=== PATIENT | female | born 1945 | race American Indian/Alaskan Native ===

== ENCOUNTER 2019-08-09 16:02 | Inpatient (IN) | payer MEDICARE ==
[2019-08-09] MEDS ORDERED: D50W (25GM) Vial IV ONE (16:05)
--- NOTE | 2019-08-09 16:11 | Emergency Department Report ---
ED Neuro Deficit HPI - General Chief Complaint: Neuro Symptoms/Deficit Stated Complaint: NEURO ISSUE Time Seen by Provider: 08/09/19 16:04 Source: EMS Mode of arrival: Stretcher Limitations: Other - History of Present Illness Initial Comments: Patient is 74 years old female with history of hypertension and diabetes. Patient brought to the emergency room via EMS for possible stroke. Family stated that patient was cooking in the kitchen and all of a sudden started to became weak on the left side. Family stated that this is happened approximately at 3:30 PM. EMS arrived patient blood glucose was 52 she was given oral glucose with a blood sugar going up to 72. Upon arrival to the ER I examined the patient on EMS stretcher. Patient is alert, oriented 3. Patient has a left facial droop, left upper and lower extremity weakness. Patient given D50 and sent to CT scan for a CT brain emergently. Telemetry neurology consulted and examined the patient. -: This Time: 15:30 Location: left face, left arm, left leg Presenting Symptoms: Present: Weak/Paralyzed One Side, Facial Droop/Numbness, Unable to Speak Clearly Place: home Context: sudden onset - Related Data Allergies/Adverse Reactions: Allergies Allergy/AdvReac Type Severity Reaction Status Date / Time No Known Allergies Allergy Unverified 08/09/19 16:08 ED Review of Systems ROS: Stated complaint: NEURO ISSUE Other details as noted in HPI Comment: All other systems reviewed and negative Constitutional: denies: chills, fever Respiratory: denies: shortness of breath Cardiovascular: denies: chest pain Gastrointestinal: denies: abdominal pain, nausea Neurological: weakness. denies: headache ED Neuro Physical Exam - General Limitations: Other General appearance: alert, in no apparent distress Suspected Stroke: Yes - Head Head exam: Present: atraumatic, normocephalic, normal inspection - Eye Eye exam: Present: normal appearance, PERRL - ENT ENT exam: Present: normal exam, normal orophraynx, mucous membranes moist - Neck Neck exam: Present: normal inspection, full ROM. Absent: tenderness, meningismus, lymphadenopathy, thyromegaly - Respiratory Respiratory exam: Present: normal lung sounds bilaterally - Cardiovascular Cardiovascular Exam: Present: regular rate, normal rhythm, normal heart sounds - GI/Abdominal GI/Abdominal exam: Present: soft, normal bowel sounds. Absent: distended, tenderness, guarding, rebound, rigid, organomegaly, mass, bruit, pulsatile mass, hernia - Extremities Exam Extremities exam: Present: normal inspection, full ROM, normal capillary refill. Absent: tenderness, pedal edema, calf tenderness - Back Exam Back exam: Present: normal inspection, full ROM. Absent: CVA tenderness (R), CVA tenderness (L), muscle spasm, paraspinal tenderness, vertebral tenderness - Neurological Exam Neurological exam: Present: alert, oriented X3 - NIHSS Assessment Interval: Baseline 1a. Level of Consciousness: alert/keenly responsive 1b. LOC Questions: answers 1 question correctly 1c. LOC Commands: performs tasks correctly 2. Best Gaze: normal 3. Visual: no visual loss 4. Facial Palsy: minor paralysis 5b. Motor Arm Right: no drift 5a. Motor Arm Left: drift 6a. Motor Leg Left: some gravity effort 6b. Motor Leg Right: no drift 7. Limb Ataxia: absent 8. Sensory: normal 9. Best Language: no aphasia 10. Dysarthria: normal 11. Extinction/Inattention: no abnormality Total Score: 5 Stroke Severity: Moderate Stroke - Psychiatric Psychiatric exam: Present: normal mood - Skin Skin exam: Present: warm, intact, normal color ED Course Vital Signs 08/09/19 08/09/19 08/09/19 16:55 16:58 17:10 Temperature Pulse Rate 74 78 78 Respiratory 13 14 Rate Blood Pressure 149/66 154/57 Blood Pressure 149/66 154/57 [Left] O2 Sat by Pulse 100 100 Oximetry 08/09/19 08/09/19 08/09/19 17:25 17:40 17:55 Temperature Pulse Rate 74 75 74 Respiratory 13 14 15 Rate Blood Pressure Blood Pressure 155/57 140/54 140/54 [Left] O2 Sat by Pulse 96 96 96 Oximetry 08/09/19 08/09/19 08/09/19 18:03 18:10 18:30 Temperature 98.3 F Pulse Rate 75 73 Respiratory 15 20 14 Rate Blood Pressure Blood Pressure 139/57 121/64 [Left] O2 Sat by Pulse 100 98 96 Oximetry 08/09/19 19:00 Temperature Pulse Rate 73 Respiratory 16 Rate Blood Pressure Blood Pressure 126/53 [Left] O2 Sat by Pulse 96 Oximetry - Lab Data Result diagrams: 08/09/19 16:20 08/09/19 16:20 Lab Results 08/09/19 08/09/19 08/09/19 Range/Units 16:20 16:20 16:20 WBC 10.1 (4.5-11.0) K/mm3 RBC 4.99 (3.65-5.03) M/mm3 Hgb 13.8 (10.1-14.3) gm/dl Hct 43.2 H (30.3-42.9) % MCV 87 (79-97) fl MCH 28 (28-32) pg MCHC 32 (30-34) % RDW 17.8 H (13.2-15.2) % Plt Count 248 (140-440) K/mm3 PT 12.8 (12.2-14.9) Sec. INR 0.99 (0.87-1.13) APTT 28.5 (24.2-36.6) Sec. Thrombin Time 15.7 (15.1-19.6) Sec. Sodium (137-145) mmol/L Potassium (3.6-5.0) mmol/L Chloride (98-107) mmol/L Carbon Dioxide (22-30) mmol/L Anion Gap mmol/L BUN (7-17) mg/dL Creatinine (0.7-1.2) mg/dL Estimated GFR ml/min BUN/Creatinine Ratio % Glucose (65-100) mg/dL POC Glucose (70-105) Calcium (8.4-10.2) mg/dL Total Bilirubin (0.1-1.2) mg/dL Direct Bilirubin (0-0.2) mg/dL Indirect Bilirubin mg/dL AST (5-40) units/L ALT (7-56) units/L Alkaline Phosphatase (35-129) units/L Total Creatine Kinase 33 (30-135) units/L CK-MB (CK-2) 1.9 (0.0-4.0) ng/mL CK-MB (CK-2) Rel Index 5.7 H (0-4) Troponin T < 0.010 (0.00-0.029) ng/mL Total Protein (6.3-8.2) g/dL Albumin (3.9-5) g/dL Albumin/Globulin Ratio % 08/09/19 08/09/19 Range/Units 16:20 16:46 WBC (4.5-11.0) K/mm3 RBC (3.65-5.03) M/mm3 Hgb (10.1-14.3) gm/dl Hct (30.3-42.9) % MCV (79-97) fl MCH (28-32) pg MCHC (30-34) % RDW (13.2-15.2) % Plt Count (140-440) K/mm3 PT (12.2-14.9) Sec. INR (0.87-1.13) APTT (24.2-36.6) Sec. Thrombin Time (15.1-19.6) Sec. Sodium 140 (137-145) mmol/L Potassium 5.8 H (3.6-5.0) mmol/L Chloride 102.4 (98-107) mmol/L Carbon Dioxide 21 L (22-30) mmol/L Anion Gap 22 mmol/L BUN 17 (7-17) mg/dL Creatinine 1.1 (0.7-1.2) mg/dL Estimated GFR 59 ml/min BUN/Creatinine Ratio 15 % Glucose 186 H (65-100) mg/dL POC Glucose 139 H (70-105) Calcium 8.7 (8.4-10.2) mg/dL Total Bilirubin 0.30 (0.1-1.2) mg/dL Direct Bilirubin < 0.2 (0-0.2) mg/dL Indirect Bilirubin 0.1 mg/dL AST 16 (5-40) units/L ALT 12 (7-56) units/L Alkaline Phosphatase 69 (35-129) units/L Total Creatine Kinase (30-135) units/L CK-MB (CK-2) (0.0-4.0) ng/mL CK-MB (CK-2) Rel Index (0-4) Troponin T (0.00-0.029) ng/mL Total Protein 6.5 (6.3-8.2) g/dL Albumin 3.9 (3.9-5) g/dL Albumin/Globulin Ratio 1.5 % - EKG Data -: EKG Interpreted by Me Rate: normal Interpretation: no acute changes - Radiology Data Radiology results: report reviewed - Medical Decision Making Patient is 74 years old female with history of hypertension and diabetes. Patient brought to the emergency room via EMS for possible stroke. Family stated that patient was cooking in the kitchen and all of a sudden started to became weak on the left side. Family stated that this is happened approximately at 3:30 PM. EMS arrived patient blood glucose was 52 she was given oral glucose with a blood sugar going up to 72. Upon arrival to the ER I examined the patient on EMS stretcher. Patient is alert, oriented 3. Patient has a left facial droop, left upper and lower extremity weakness. Patient given D50 and sent to CT scan for a CT brain emergently. Telemetry neurology consulted and examined the patient. Patient's CT brain is negative for acute finding. I discussed the patient is . He stated that patient is a TPA candidate and he went ahead and order a TPA for the patient and advised to order a CT angiogram of the brain and neck. Patient finished TPA with no acute complication. Patient symptoms is significantly improved. Patient now has no left upper and lower extremity drift. CTA neck and brain is negative for acute finding. I discussed the patient with Dr. Driscoll, he agreed to admit the patient to medical service for further management. Critical Care Time: Yes Critical care time in (mins) excluding proc time.: 45 Critical care attestation.: If time is entered above; I have spent that time in minutes in the direct care of this critically ill patient, excluding procedure time. ED Disposition Clinical Impression: CVA (cerebral vascular accident) Disposition: DC-09 OP ADMIT IP TO THIS HOSP Is pt being admited?: Yes Condition: Stable Referrals: CYN WATSON MD [Primary Care Provider] - 3-5 Days
[2019-08-09 16:29] LABS: Hematocrit 43.2 % (30.3-42.9); Hemoglobin 13.8 gm/dl (10.1-14.3); Mean Corpuscular HGB Conc 32 % (30-34); Mean Corpuscular Volume 87 fl (79-97); Platelet Count 248 K/mm3 (140-440); Red Blood Count 4.99 M/mm3 (3.65-5.03); Red Cell Distribution Width 17.8 % (13.2-15.2)
--- NOTE | 2019-08-09 16:32 | Consultation ---
History of Present Illness Consult date: 08/09/19 History of present illness: [facility] Impression: Stroke Symptoms are consistent with LVO therefore CTA head and neck recommended. Differential Diagnosis: 1. Cardioembolic stroke 2. Small vessel disease/lacune 3. Thromboembolic, [id number] mechanism 4. Hypercoagulable state-related infarct 5. Transient ischemic attack 6. Thrombotic mechanism, large artery disease Comments: LKW: 14:50 Door time:16:02 [facility] contacted: 16:03 [facility] at bedside: 16:08 NIHSS assessment time: 16:17 Verbal tpa order:16:33 Needle time: 16:55 There was delay in TPA administration due to waiting on coags since family said that she is on warfarin. Verbal Consent to tPA: I have explained to the patient/family/guardian the nature of the patients condition, the use of tPA fibrinolytic agent, and the benefits to be reasonably expected compared with alternative approaches. I have discussed the likelihood of major risks or complications of this procedure including (if applicable) but not limited to loss of limb function, brain damage, paralysis, hemorrhage, infection, complications from transfusion of blood components, drug reactions, blood clots and loss of life. I have also indicated that with any procedure there is always the possibility of an unexpected complication. I have explained the risks which include: 1. , Stroke or permanent neurologic injury (paralysis, coma, etc) 2. Worsening of stroke symptoms from swelling or bleeding in the brain 3. Bleeding in other parts of the body 4. Need for blood transfusions to replace blood or clotting factors 5. Allergic reaction to medications 6. Other unexpected complications All questions were answered and the patient/family/guardian express understanding of the treatment plan and consent to the procedure. Our recommendations are outlined below. We will be seeing the patient back in follow up as noted. Recommendations: IV tPA dose = 90 mg Routine post tPA monitoring including neuro checks and blood pressure control during/after treatment Monitor blood pressure Check blood pressure and NIHSS every 15 min for 2 h, then every 30 min for 6 h, and finally every hour for 16 h Systolic greater than 180 OR diastolic greater than 105: Option 1: Labetalol 10 mg IV for 1 - 2 min May repeat or double labetalol every 10 min to maximum dose of 300 mg, or give initial labetalol dose, then start labetalol drip at 2 - 8 mg/min. Option 2: Nicardipine 5 mg/h IV infusion as initial dose and titrate to desired effect by increasing 2.5 mg/h every 5 min to maximum of 15 mg/h; If blood pressure is not controlled by labetolol or nicardipine, consider sodium nitroprusside. Admission to ICU CT brain 24 hours post tPA NPO until swallowing screen performed and passed No antiplatelet agents or anticoagulants (including heparin for DVT prophylaxis) in first 24 hours No Sears catheter, nasogastric tube, arterial catheter or central venous catheter for 24 hr, unless absolutely necessary Telemetry Inpatient Neurology Consultation Stroke evaluation as per inpatient neurology recommendations Discussed with ED MD CC: left sided weakness. History of Present Illness Patient is a 74 YO F with h/o HTN and DM presented with left sided weakness. She was LKW at 14:50 when she was with family and passed out. She was found to be hypoglycemic with BGL of 64 per family and was given Dextrose by EMS after which she recovered completely but then she passed out again and is now weak on the left side. she is also complaining of dizziness. Her BGL is 139 now. Per family she was prescribed coumadin couple of months ago but not sure if she is till on it. Risks/benefits/contraindications of TPA were discussed with the family who denied any contraindications and wanted to proceed with TPA. They understood the risk. We had to wait for coags to come back before TPA could be administered. Diagnostics CT head: No acute intracranial findings. Exam: NIH Stroke Scale/Score (NIHSS) RESULT SUMMARY: 6 points NIH Stroke Scale INPUTS: 1A: Level of consciousness > 0 = Alert; keenly responsive 1B: Ask month and age > 1 = 1 question right 1C: 'Blink eyes' & 'squeeze hands' > 0 = Performs both tasks 2: Horizontal extraocular movements > 0 = Normal 3: Visual crump > 0 = No visual loss 4: Facial palsy > 0 = Normal symmetry 5A: Left arm motor drift > 1 = Drift, but doesn't hit bed 5B: Right arm motor drift > 0 = No drift for 10 seconds 6A: Left leg motor drift > 2 = Some effort against gravity 6B: Right leg motor drift > 1 = Drift, but doesn't hit bed 7: Limb Ataxia > 0 = No ataxia 8: Sensation > 0 = Normal; no sensory loss 9: Language/aphasia > 1 = Mild-moderate aphasia: some obvious changes, without significant limitation 10: Dysarthria > 0 = Normal 11: Extinction/inattention > 0 = No abnormality Medical Decision Making: - Extensive number of diagnosis or management options are considered above. - Extensive amount of complex data reviewed. - High risk of complication and/or morbidity or mortality are associated with differential diagnostic considerations above. - There may be Uncertain outcome and increased probability of prolonged functional impairment or high probability of severe prolonged functional impairment associated with some of these differential diagnosis. Medical Data Reviewed: 1.Data reviewed include clinical labs, radiology, Medical Tests; 2.Tests results discussed w/performing or interpreting physician; 3.Obtaining/reviewing old medical records; 4.Obtaining case history from another source; 5.Independent review of image, tracing or specimen. Patient was informed the neurology consult would happen via telehealth consult by way of interactive audio and video telecommunications and consented to receiving care in this manner. Medications and Allergies Allergies Allergy/AdvReac Type Severity Reaction Status Date / Time No Known Allergies Allergy Unverified 08/09/19 16:08 - Level of Consciousness 1a. Level of Consciousness: alert/keenly responsive - LOC Questions 1b. LOC Questions: answers 1 question correctly - LOC Command 1c. LOC Commands: performs tasks correctly - Best Gaze 2. Best Gaze: normal - Visual 3. Visual: no visual loss - Facial Palsy 4. Facial Palsy: normal symmetrical movement - Motor Arm 5a. Motor Arm Left: drift 5b. Motor Arm Right: no drift - Motor Leg 6a. Motor Leg Left: some gravity effort 6b. Motor Leg Right: drift - Limb Ataxia 7. Limb Ataxia: absent - Sensory 8. Sensory: normal - Best Language 9. Best Language: mild/moderate aphasia - Dysarthria 10. Dysarthria: normal - Extinction and Inattention 11. Extinction/Inattention: no abnormality - Scoring Total Score: 6 Stroke Severity: Moderate Stroke Results - Laboratory Findings CBC and BMP: 08/09/19 16:20 08/09/19 16:20
--- NOTE | 2019-08-09 16:33 | Cat Scan Report ---
CT HEAD WITHOUT CONTRAST INDICATION / CLINICAL INFORMATION: Stroke symptoms. Code stroke TECHNIQUE: Axial imaging performed from the skull apex through the skull base without the use of cont rast. Sagittal and coronal reformatted images. All CT scans at this location are performed using CT dose reduction for ALARA by means of automated exposure control. COMPARISON: None available. FINDINGS: CEREBRAL PARENCHYMA: No significant abnormality. No acute territorial infarct. HEMORRHAGE: None. EXTRA-AXIAL SPACES: Normal in size and morphology for the patient's age. VENTRICULAR SYSTEM: Normal in size and morphology for the patient's age. MIDLINE SHIFT OR HERNIATION: None. CEREBELLUM / BRAINSTEM: No significant abnormality. CALVARIUM: No significant abnormality. ORBITS: Normal as visualized. PARANASAL SINUSES / MASTOID AIR CELLS: Normal as visualized. SOFT TISSUES of HEAD: No significant abnormality. ADDITIONAL FINDINGS: None. IMPRESSION: No acute intracranial abnormality. These findings were discussed with Dr. Benton in the emergency department at 1628 hours [facility] time. Signer Name: Mani Denson Jr, MD Signed: 08/09/2019 4:29 PM Workstation Name: [id number]
[2019-08-09 16:40] LABS: INR 0.99 (0.87-1.13); Partial Thromboplastin Time 28.5 Sec. (24.2-36.6)
[2019-08-09 16:41] LABS: Thrombin Time 15.7 Sec. (15.1-19.6)
[2019-08-09] MEDS ORDERED: ACTIVASE ONE (16:42)
[2019-08-09 16:53] LABS: Creatine Kinase MB 1.9 ng/mL (0.0-4.0)
[2019-08-09 16:54] LABS: Alanine Aminotransferase 12 units/L (7-56); Albumin 3.9 g/dL (3.9-5); BUN/Creatinine Ratio 15; Blood Urea Nitrogen 17 mg/dL (7-17); Calcium 8.7 mg/dL (8.4-10.2); Hemolysis Index 74
[2019-08-09 17:11] LABS: Bilirubin,Direct < 0.2 mg/dL (0-0.2)
[2019-08-09] MEDS ORDERED: NACL 0.9% 100 ML ONE (17:19)
[2019-08-09] MEDS ORDERED: ACTIVASE IV ONE ×2 (18:01)
[2019-08-09] MEDS ORDERED: NACL 0.9% IV ONE (18:01)
[2019-08-09] MEDS ORDERED: NACL 0.9% 250ML 100 ML IV ONE (18:14)
--- NOTE | 2019-08-09 18:44 | Cat Scan Report ---
CTA neck with and without contrast CLINICAL HISTORY: Cerebrovascular accident. Technique: Multiple contiguous postcontrast axial CT images of the neck were obtained at 0.63 mm inte rvals. 3 plane MIP reconstructions were produced. Precontrast localizing images were also performed. All CT scans at this location are performed using the CT dose reduction for ALARA by means of automat ed exposure control. FINDINGS: No previous exams available for comparison. There is no significant stenosis involving the carotid arteries by NASCET criteria. The motion and beam hardening from the dense contrast within the venous structures obscures evaluation of the proximal vertebral arteries at. However, there is no cl ear CTA evidence of significant focal narrowing involving the vertebral arteries. The arch of vessels are grossly unremarkable. The CTA head will be dictated separately. IMPRESSION: There is no CTA evidence of significant stenosis involving the cervical carotid or vertebral arteries by NASCET criteria. Signer Name: Long Guerrero MD Signed: 08/09/2019 6:40 PM Workstation Name: [id number]
--- NOTE | 2019-08-09 18:59 | Cat Scan Report ---
CTA head with and without IV contrast. CLINICAL HISTORY: Cerebrovascular accident Technique: Multiple contiguous postcontrast CT images of the head were obtained at 0.63 mm intervals. 3 plane MIP reconstructions were obtained. Precontrast localizing images were also performed. CT scan s at this location are performed using the CT dose reduction for ALARentJiffy by means of automated exposure control. FINDINGS: There is atherosclerotic calcification involving the distal internal carotid arteries witho ut significant stenosis by NASCET criteria. 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 However, there is no significant focal narrowing. The vi sualized cerebral branches appear to demonstrate appropriate caliber also without significant focal s tenosis. There is no definitive CTA evidence of intracranial aneurysm. The dural venous sinuses opacify with c ontrast. 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 There is atherosclerotic calcification involving the distal internal carotid arteries without signifi cant stenosis by NASCET criteria. Signer Name: Long Guerrero MD Signed: 08/09/2019 6:55 PM Workstation Name: [id number]
[2019-08-09] MEDS ORDERED: MILK OF MAGNESIA PO PRN (19:57)
[2019-08-09] MEDS ORDERED: TYLENOL PO PRN (19:57)
[2019-08-09] MEDS ORDERED: DULCOLAX PR PRN (19:57)
[2019-08-09] MEDS ORDERED: DILAUDID IV PRN (19:57)
[2019-08-09] MEDS ORDERED: NORMODYNE IV PRN (19:57)
[2019-08-09] MEDS ORDERED: REGLAN PO PRN (19:57)
[2019-08-09] MEDS ORDERED: ZOFRAN IV PRN (19:57)
[2019-08-09] MEDS ORDERED: PHENERGAN PR PRN (19:57)
[2019-08-09] MEDS ORDERED: KIONEX PO ONE (20:22)
[2019-08-09] MEDS ORDERED: CALCIUM GLUCONATE 1,000 MG in NACL 0.9% 100 ML IV ONE (20:22)
--- NOTE | 2019-08-09 20:32 | History and Physical Report ---
History of Present Illness Date of examination: 08/09/19 Date of admission: 08/09/2019 Chief complaint: CVA History of present illness: 74-year-old female with history of hypertension and diabetes who presents to [facility] ED via EMS with complaints of left sided weakness and left facial droop. Family is present at bedside and has assisted with providing history. According to patient's family patient was in the kitchen earlier today cooking, when suddenly became weak on the left side. She was noted to have left sided facial droop as well. upon EMS arrival to pt'e home she was found to be hypoglycemic with BG of 52. She was given oral glucose (by EMS) and was responsive with BG of 72. Upon arrival to out facility she was noted to have left facial droop, left upper and lower extremity weakness. CT Head was negative. Teleneurology () was consulted and evaluated pt. Per Dr. Irizarry's recommendations pt received tPA in ED. Denies: n/v/d, fever, headache, non compliance with meds Past History Past Medical History: diabetes, hypertension Past Surgical History: No surgical history Social history: lives with family Family history: no significant family history Medications and Allergies Allergies Allergy/AdvReac Type Severity Reaction Status Date / Time No Known Allergies Allergy Unverified 08/09/19 16:08 Active Meds: Active Medications Acetaminophen (Tylenol) 650 mg PO Q4H PRN PRN Reason: Pain, Mild (1-3) Acetaminophen/Hydrocodone Bitart ([place] 5/325) 2 each PO Q6H PRN PRN Reason: Pain, Moderate (4-6) Aspirin (Aspirin) 325 mg PO QDAY [facility] Atorvastatin Calcium (Lipitor) 40 mg PO QHS [facility] Bisacodyl (Dulcolax) 10 mg [place] QDAY PRN PRN Reason: Constipation Docusate Sodium (Colace) 100 mg PO BID [facility] Hydromorphone HCl (Dilaudid) 0.5 mg IV Q3H PRN PRN Reason: Pain , Severe (7-10) Calcium Gluconate 1,000 mg/ (Sodium Chloride) 110 mls @ 660 mls/hr IV ONCE ONE Stop: 08/09/19 20:31 Labetalol HCl (Normodyne) 10 mg IV Q5MIN PRN PRN Reason: maintain SBP 180or<,DBP 105or< Magnesium Hydroxide (Milk Of Magnesia) 30 ml PO Q4H PRN PRN Reason: Constipation Metoclopramide HCl (Reglan) 10 mg PO Q6H PRN PRN Reason: Nausea And Vomiting Ondansetron HCl (Zofran) 4 mg IV Q8H PRN PRN Reason: Nausea And Vomiting Promethazine HCl (Phenergan) 25 mg [place] Q6H PRN PRN Reason: Nausea And Vomiting Sodium Chloride (Sodium Chloride Flush Syringe 10 Ml) 10 ml INJ PRN PRN PRN Reason: LINE FLUSH Sodium Polystyrene Sulfonate (Kionex) 30 gm PO ONCE ONE Stop: 08/09/19 20:23 Review of Systems All systems: negative Neurological: lack of coordination (left sided weakness), other (left facial droop) Exam - Physical Exam Narrative exam: Physical exam General appearance: Present: No apparent distress, alert and oriented 3, well- developed, obese, older adult female - EENT Eyes: Present: PERRL, EOM intact ENT: hearing intact, normal dentition - Neck Neck: Present: supple, normal ROM - Respiratory Respiratory effort: Non-labored Respiratory: CTA bilaterally - Cardiovascular Heart rate: 74(bpm) Rhythm: SR Heart Sounds: Present: S1 & S2. Absent: rub, click - Extremities Extremities: no ischemia, pulses intact, - Peripheral Assessment Peripheral Pulses: within normal limits - Abdominal General gastrointestinal: soft, non-tender, normal bowel sounds - Integumentary Integumentary: Present: warm, dry - Musculoskeletal Musculoskeletal: Mild left-sided residual weakness, able to move all extremities -Neurological Neurological: CN II-XII grossly intact - Psychiatric Psychiatric: cooperative - Constitutional Vitals: Temp Pulse Resp BP Pulse Ox 98.3 F 71 16 139/57 97 08/09/19 18:30 08/09/19 19:15 08/09/19 19:15 08/09/19 19:15 08/09/19 19:15 Results - Labs CBC & Chem 7: 08/09/19 16:20 08/09/19 16:20 Labs: Laboratory Last Values WBC 10.1 K/mm3 (4.5-11.0) 08/09/19 16:20 RBC 4.99 M/mm3 (3.65-5.03) 08/09/19 16:20 Hgb 13.8 gm/dl (10.1-14.3) 08/09/19 16:20 Hct 43.2 % (30.3-42.9) H 08/09/19 16:20 MCV 87 fl (79-97) 08/09/19 16:20 MCH 28 pg (28-32) 08/09/19 16:20 MCHC 32 % (30-34) 08/09/19 16:20 RDW 17.8 % (13.2-15.2) H 08/09/19 16:20 Plt Count 248 K/mm3 (140-440) 08/09/19 16:20 PT 12.8 Sec. (12.2-14.9) 08/09/19 16:20 INR 0.99 (0.87-1.13) 08/09/19 16:20 APTT 28.5 Sec. (24.2-36.6) 08/09/19 16:20 15.7 Sec. (15.1-19.6) 08/09/19 16:20 Sodium 140 mmol/L (137-145) 08/09/19 16:20 Potassium 5.8 mmol/L (3.6-5.0) H 08/09/19 16:20 Chloride 102.4 mmol/L (98-107) 08/09/19 16:20 Carbon Dioxide 21 mmol/L (22-30) L 08/09/19 16:20 22 mmol/L 08/09/19 16:20 BUN 17 mg/dL (7-17) 08/09/19 16:20 1.1 mg/dL (0.7-1.2) 08/09/19 16:20 Estimated GFR 59 ml/min 08/09/19 16:20 15 % 08/09/19 16:20 Glucose 186 mg/dL (65-100) H 08/09/19 16:20 POC Glucose 139 (70-105) H 08/09/19 16:46 Calcium 8.7 mg/dL (8.4-10.2) 08/09/19 16:20 0.30 mg/dL (0.1-1.2) 08/09/19 16:20 < 0.2 mg/dL (0-0.2) 08/09/19 16:20 0.1 mg/dL 08/09/19 16:20 AST 16 units/L (5-40) 08/09/19 16:20 ALT 12 units/L (7-56) 08/09/19 16:20 69 units/L (35-129) 08/09/19 16:20 33 units/L (30-135) 08/09/19 16:20 CK-MB (CK-2) 1.9 ng/mL (0.0-4.0) 08/09/19 16:20 CK-MB (CK-2) Rel Index 5.7 (0-4) H 08/09/19 16:20 < 0.010 ng/mL (0.00-0.029) 08/09/19 16:20 6.5 g/dL (6.3-8.2) 08/09/19 16:20 3.9 g/dL (3.9-5) 08/09/19 16:20 1.5 % 08/09/19 16:20 - Imaging and Cardiology Imaging and Cardiology: CT Head: FINDINGS: CEREBRAL PARENCHYMA: No significant abnormality. No acute territorial infarct. HEMORRHAGE: None. EXTRA-AXIAL SPACES: Normal in size and morphology for the patient's age. VENTRICULAR SYSTEM: Normal in size and morphology for the patient's age. MIDLINE SHIFT OR HERNIATION: None. CEREBELLUM / BRAINSTEM: No significant abnormality. CALVARIUM: No significant abnormality. ORBITS: Normal as visualized. PARANASAL SINUSES / MASTOID AIR CELLS: Normal as visualized. SOFT TISSUES of HEAD: No significant abnormality. ADDITIONAL FINDINGS: None. IMPRESSION: No acute intracranial abnormality. CT angio Neck: FINDINGS: No previous exams available for comparison. There is no significant s tenosis involving the carotid arteries by NASCET criteria. The motion and beam hardening from the dense contrast within the venous structures obscures evaluation of the proximal vertebral arteries at. However, there is no clear CTA evidence of significant focal narrowing involving the vertebral arteries. The arch of vessels are grossly unremarkable. The CTA head will be dictated separately. IMPRESSION: There is no CTA evidence of significant stenosis involving the cervical carotid or vertebral arteries by NASCET criteria. CT angio Head: FINDINGS: There is atherosclerotic calcification involving the distal internal carotid arteries without significant stenosis by NASCET criteria. 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 However, there is no significant focal narrowing.The visualized cerebral branches appear to demonstrate appropriate caliber also without significant focal stenosis. There is no definitive CTA evidence of intracranial aneurysm. The dural venous sinuses opacify with contrast. 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 There is atherosclerotic calcification involving the distal internal carotid arteries without significant stenosis by NASCET criteria. Assessment and Plan Assessment and plan: 74-year-old female with history of hypertension and diabetes who presents to [facility] ED via EMS with complaints of left sided weakness and left facial droop. CVA ?? Large vessel occlusion -Initiate stroke protocol -CT angiogram Head revealed There is developmental origin of the right [employer]IT [employer]ING MANAGER and hypoplasia of the vertebral basilar system.There is atherosclerotic calcification involving the distal internal carotid arteries without significant stenosis by NASCET criteria. -CT angiogram Neck did not show any evidence of significant stenosis involving the cervical carotid or vertebral arteries by NASCET criteria. -S/P tPA -Hold ASA and all anticoagulation therapy for the next 24hrs -Allow for permissive HTN [id number] or <, DBP 105 or < -IV labetalol when necessary -Neurochecks per stroke protocol -MRI brain and Echo pending -Start Statin -Lipid panel pending -Neurology consulted -PT/OT consult Hypertension -Continue to monitor BP -Resume home antihypertensive meds to optimize BP -Allow for permissive HTN [id number] or <, DBP 105 or < -IV labetalol when necessary DM -POC BG monitoring -SSI coverage prn -HgbA1C pending Hyperkalemia -5.8 on admission -Received Kayexalate and calcium gluconate -Continue to monitor electrolytes DVT PPX -SCD's Advance Directives: No VTE prophylaxis?: Mechanical Reason for no VTE Prophylaxis: Medical contraindication (patient received TPA today)
[2019-08-09] MEDS ORDERED: D50W (25GM) Syringe IV PRN (20:33)
[2019-08-09 20:38] LABS: Basophils % (Manual) 0 % (0.0-1.8); Total Cells Counted 100
[2019-08-09 20:39] LABS: Anisocytosis 1+
[2019-08-09 20:41] LABS: Platelet Estimate Consistent w Auto
[2019-08-09] MEDS ORDERED: NACL 0.9% 500 ML 500 ML ONE (22:06)
[2019-08-09] MEDS ORDERED: NACL 0.9% 500 ML 500 ML IV ONE (22:11)
[2019-08-09] MEDS: COLACE PO SCH (22:12)
--- NOTE | 2019-08-10 04:43 | Event Note ---
Date: 08/10/19 New onset of A.Fib noted on 12 Lead EKG. troponin neg x2; will continue to trend x1. Cardiology consulted.
[2019-08-10 05:06] LABS: Basophils # (Auto) 0.2 K/mm3 (0.0-0.1); Basophils % (Auto) 1.4 % (0.0-1.8); Eosinophils # (Auto) 0.3 K/mm3 (0.0-0.4); Eosinophils % (Auto) 2.3 % (0.0-4.3); Hematocrit 47.4 % (30.3-42.9); Hemoglobin 15.2 gm/dl (10.1-14.3); Lymphocytes # (Auto) 2.9 K/mm3 (1.2-5.4); Lymphocytes % (Auto) 24.2 % (13.4-35.0); Mean Corpuscular HGB Conc 32 % (30-34); Mean Corpuscular Volume 86 fl (79-97); Monocytes # (Auto) 0.6 K/mm3 (0.0-0.8); Monocytes % (Auto) 4.9 % (0.0-7.3); Platelet Count 240 K/mm3 (140-440); Red Blood Count 5.51 M/mm3 (3.65-5.03); Red Cell Distribution Width 18.3 % (13.2-15.2)
[2019-08-10 05:21] LABS: Chol/HDL Ratio 3.29 %
[2019-08-10 05:25] LABS: Alanine Aminotransferase 12 units/L (7-56); Albumin 3.6 g/dL (3.9-5); BUN/Creatinine Ratio 13; Blood Urea Nitrogen 13 mg/dL (7-17); Calcium 9.1 mg/dL (8.4-10.2); Hemolysis Index 11
[2019-08-10] MEDS: HumuLIN R SUB-Q SCH ×4 (05:56→17:20)
[2019-08-10] MEDS: COLACE PO SCH ×2 (09:40→21:47)
[2019-08-10] MEDS ORDERED: PNEUMOVAX 23 IM ONE (12:00)
--- NOTE | 2019-08-10 12:25 | Consultation ---
History of Present Illness Consult date: 08/10/19 Requesting physician: CASANDRA CANALES Consult reason: atrial fibrillation History of present illness: The patient is a74 YO female with h/o HTN and DM. She is previously unknown to our practice. She presented with c/o left sided weakness and left facial droop, last known well yesterday at 14:50. Upon EMS arrival to pt's home she was found to be hypoglycemic with BG of 52. She was given oral glucose (by EMS) and was responsive with BG of 72. Upon arrival to out facility she was noted to have left facial droop, left upper and lower extremity weakness. CT Head was negative. Teleneurology was consulted and evaluated pt and per their recommendation pt received tPA in ED at approx 1700 yesterday and has no residu al deficits today. Admission ECG showed SR and overnight pt developed AFib. On evaluation, pt remains in AFib with HR 100s - 120s. Pt does report intermittent palpitations over the past several months. Pt denies any known prior cardiac issues, including CAD, AMI, HF or arrhythmia. Per the chart, pt's family members reported that pt was recently prescribed Warfarin, although they did now know the indication or if the pt had actually been taking this medication. INR was normal on admission. Past History Past Medical History: diabetes, hypertension Past Surgical History: No surgical history Social history: lives with family Family history: no significant family history Medications and Allergies Allergies Allergy/AdvReac Type Severity Reaction Status Date / Time No Known Allergies Allergy Unverified 08/09/19 16:08 Home Medications Medication Instructions Recorded Confirmed Last Taken Type Aspirin BABY CHEW TAB 81 mg PO DAILY 08/09/19 08/09/19 Unknown History AtorvaSTATin 20 mg PO DAILY 08/09/19 08/09/19 Unknown History HCTZ 12.5 mg PO DAILY 08/09/19 08/09/19 Unknown History Jardiance 10 mg PO DAILY 08/09/19 08/09/19 Unknown History Levothyroxine 50 mcg PO DAILY 08/09/19 08/09/19 Unknown History Losartan 50 mg PO DAILY 08/09/19 08/09/19 Unknown History metFORMIN 1,000 mg PO BID 08/09/19 08/09/19 Unknown History Active Meds: Active Medications Acetaminophen (Tylenol) 650 mg PO Q4H PRN PRN Reason: Pain, Mild (1-3) Acetaminophen/Hydrocodone Bitart ([place] 5/325) 2 each PO Q6H PRN PRN Reason: Pain, Moderate (4-6) Aspirin (Aspirin) 325 mg PO QDAY [facility] Atorvastatin Calcium (Lipitor) 40 mg PO QHS [facility] Last Admin: 08/09/19 22:12 Dose: 40 mg Documented by: Bisacodyl (Dulcolax) 10 mg [place] QDAY PRN PRN Reason: Constipation Dextrose (D50w (25gm) Syringe) 50 ml IV PRN PRN PRN Reason: Hypoglycemia Docusate Sodium (Colace) 100 mg PO BID [facility] Last Admin: 08/10/19 09:40 Dose: 100 mg Documented by: Hydromorphone HCl (Dilaudid) 0.5 mg IV Q3H PRN PRN Reason: Pain , Severe (7-10) Insulin Human Regular (Humulin R) 0 units SUB-Q Q6HR [facility]; Protocol Last Admin: 08/10/19 05:56 Dose: Not Given Documented by: Labetalol HCl (Normodyne) 10 mg IV Q5MIN PRN PRN Reason: maintain SBP 180or<,DBP 105or< Magnesium Hydroxide (Milk Of Magnesia) 30 ml PO Q4H PRN PRN Reason: Constipation Metoclopramide HCl (Reglan) 10 mg PO Q6H PRN PRN Reason: Nausea And Vomiting Ondansetron HCl (Zofran) 4 mg IV Q8H PRN PRN Reason: Nausea And Vomiting Pneumococcal Polyvalent Vaccine (Pneumovax 23) 0.5 ml IM .ONCE ONE Stop: 08/11/19 12:01 Promethazine HCl (Phenergan) 25 mg [place] Q6H PRN PRN Reason: Nausea And Vomiting Sodium Chloride (Sodium Chloride Flush Syringe 10 Ml) 10 ml IV PRN PRN PRN Reason: LINE FLUSH Review of Systems Constitutional: weakness (left sided), no weight loss, no weight gain, no fever, no chills, no sweats Ears, nose, mouth and throat: no ear pain, no nose pain, no sinus pressure, no sinus pain Cardiovascular: palpitations, rapid/irregular heart beat, high blood pressure, no chest pain, no orthopnea, no edema, no syncope, no lightheadedness, no shortness of breath, no dyspnea on exertion Respiratory: no cough, no shortness of breath, no dyspnea on exertion, no congestion, no wheezing, no pain on inspiration Gastrointestinal: no abdominal pain, no nausea, no vomiting, no diarrhea, no constipation, no change in bowel habits Genitourinary Female: no pelvic pain, no flank pain, no dysuria, no urinary frequency, no urgency Musculoskeletal: no neck stiffness, no neck pain, no shooting arm pain, no arm numbness/tingling, no low back pain, no shooting leg pain Integumentary: no rash, no pruritis, no redness, no sores, no wounds Neurological: weakness (left sided), other (left-sided facial droop), no head injury, no paralysis, no parathesias, no tingling, no seizures, no syncope Psychiatric: no anxiety Endocrine: no cold intolerance, no heat intolerance Hematologic/Lymphatic: no easy bruising, no easy bleeding Allergic/Immunologic: no urticaria, no wheezing Physical Examination Vital Signs Pulse Ox 98 08/09/19 16:22 General appearance: no acute distress HEENT: Positive: PERRL, Normocephaly, Mucus Membranes Moist Neck: Positive: neck supple, trachea midline Cardiac: Positive: irregularly irregular, S1/S2 Lungs: Positive: Decreased Breath Sounds Neuro: Positive: Grossly Intact Abdomen: Negative: Tender Skin: Negative: Rash Musculoskeletal: No Pain Extremities: Absent: edema Results 08/10/19 04:36 08/10/19 04:36 Cardiac Enzymes 08/09/19 08/09/19 08/10/19 Range/Units 16:20 16:20 04:36 AST 16 13 (5-40) units/L CK-MB (CK-2) 1.9 (0.0-4.0) ng/mL Coagulation 08/09/19 Range/Units 16:20 PT 12.8 (12.2-14.9) Sec. INR 0.99 (0.87-1.13) APTT 28.5 (24.2-36.6) Sec. Lipids 08/10/19 Range/Units 04:36 Triglycerides 100 (2-149) mg/dL Cholesterol 102 (50-199) mg/dL HDL Cholesterol 31 L (40-59) mg/dL Cholesterol/HDL Ratio 3.29 % CBC 08/09/19 08/10/19 Range/Units 16:20 04:36 WBC 10.1 11.9 H (4.5-11.0) K/mm3 RBC 4.99 5.51 H (3.65-5.03) M/mm3 Hgb 13.8 15.2 H (10.1-14.3) gm/dl Hct 43.2 H 47.4 H (30.3-42.9) % Plt Count 248 240 (140-440) K/mm3 Lymph # 2.9 (1.2-5.4) K/mm3 [place] # 0.6 (0.0-0.8) K/mm3 Eos # 0.3 (0.0-0.4) K/mm3 Baso # 0.2 H (0.0-0.1) K/mm3 Comprehensive Metabolic Panel 08/09/19 08/10/19 Range/Units 16:20 04:36 Sodium 140 142 (137-145) mmol/L Potassium 5.8 H 4.5 D (3.6-5.0) mmol/L Chloride 102.4 103.7 (98-107) mmol/L Carbon Dioxide 21 L 27 (22-30) mmol/L BUN 17 13 (7-17) mg/dL Creatinine 1.1 1.0 (0.7-1.2) mg/dL Glucose 186 H 109 H (65-100) mg/dL Calcium 8.7 9.1 (8.4-10.2) mg/dL Direct Bilirubin < 0.2 (0-0.2) mg/dL Indirect Bilirubin 0.1 mg/dL AST 16 13 (5-40) units/L ALT 12 12 (7-56) units/L Alkaline Phosphatase 69 69 (35-129) units/L Total Protein 6.5 6.8 (6.3-8.2) g/dL Albumin 3.9 3.6 L (3.9-5) g/dL - Imaging and Cardiology Echo: pending EKG: report reviewed, image reviewed EKG interpretations - Telemetry EKG Rhythm: Atrial Fibrillation - EKG Supraventricular dysrhythmia: atrial fibrillation Assessment and Plan Pt presented with apparent acute CVA and ? new onset AFib. Pt received tPA in ED at approx 1700 yesterday. Per teleneurology recommendations, no antiplatelet agents or anticoagulants (including heparin for DVT prophylaxis) in first 24 hours. Inpatient neurology consultation is pending. Recommend initiation of heparin gtt today at 1700 in regards to atrial fibrillation if no contraindications. Optimize HR and will also attempt to chemically convert to NSR - initiate amio gtt. BPs appear borderline low. Can consider addition of BB or CCB if necessary and if BPs permit. Obtain echo and thyroid profile. Further recs to follow per hospital course. The patient has been seen in conjunction with Dr. Leoncio Rosario who agrees with the assessment and plan of care. - Patient Problems (1) Acute CVA (cerebrovascular accident) Current Visit: Yes Status: Acute (2) Atrial fibrillation with RVR Current Visit: Yes Status: Acute Plan to address problem: ? new onset (3) HTN (hypertension) Current Visit: Yes Status: Chronic (4) Diabetes Current Visit: Yes Status: Chronic
--- NOTE | 2019-08-10 12:33 | Consultation ---
History of Present Illness - Reason for Consult Consult date: 08/10/19 TPA for Acute CVA - History of Present Illness 74-year-old female with history of hypertension and diabetes who presents to [facility] ED via EMS with complaints of left sided weakness and left facial droop. Per the chart, patient was in the kitchen cooking earlier that day and developed an acute onset of left sided weaknes. In the ED she had left sided facial droop as well. She was also hypoglycemic in the 50's. She was given TP around 1700 on yesterday. She has no residual deficits this am. She did develop afib throughout the night. Past History Past Medical History: diabetes, hypertension Past Surgical History: No surgical history Social history: lives with family Family history: no significant family history Medications and Allergies Allergies Allergy/AdvReac Type Severity Reaction Status Date / Time No Known Allergies Allergy Unverified 08/09/19 16:08 Home Medications Medication Instructions Recorded Confirmed Last Taken Type Aspirin BABY CHEW TAB 81 mg PO DAILY 08/09/19 08/09/19 Unknown History AtorvaSTATin 20 mg PO DAILY 08/09/19 08/09/19 Unknown History HCTZ 12.5 mg PO DAILY 08/09/19 08/09/19 Unknown History Jardiance 10 mg PO DAILY 08/09/19 08/09/19 Unknown History Levothyroxine 50 mcg PO DAILY 08/09/19 08/09/19 Unknown History Losartan 50 mg PO DAILY 08/09/19 08/09/19 Unknown History metFORMIN 1,000 mg PO BID 08/09/19 08/09/19 Unknown History Active Meds: Active Medications Acetaminophen (Tylenol) 650 mg PO Q4H PRN PRN Reason: Pain, Mild (1-3) Acetaminophen/Hydrocodone Bitart ([place] 5/325) 2 each PO Q6H PRN PRN Reason: Pain, Moderate (4-6) Aspirin (Aspirin) 325 mg PO QDAY [facility] Atorvastatin Calcium (Lipitor) 40 mg PO QHS [facility] Last Admin: 08/09/19 22:12 Dose: 40 mg Documented by: Bisacodyl (Dulcolax) 10 mg [place] QDAY PRN PRN Reason: Constipation Dextrose (D50w (25gm) Syringe) 50 ml IV PRN PRN PRN Reason: Hypoglycemia Docusate Sodium (Colace) 100 mg PO BID [facility] Last Admin: 08/10/19 09:40 Dose: 100 mg Documented by: Hydromorphone HCl (Dilaudid) 0.5 mg IV Q3H PRN PRN Reason: Pain , Severe (7-10) Insulin Human Regular (Humulin R) 0 units SUB-Q Q6HR [facility]; Protocol Last Admin: 08/10/19 05:56 Dose: Not Given Documented by: Labetalol HCl (Normodyne) 10 mg IV Q5MIN PRN PRN Reason: maintain SBP 180or<,DBP 105or< Magnesium Hydroxide (Milk Of Magnesia) 30 ml PO Q4H PRN PRN Reason: Constipation Metoclopramide HCl (Reglan) 10 mg PO Q6H PRN PRN Reason: Nausea And Vomiting Ondansetron HCl (Zofran) 4 mg IV Q8H PRN PRN Reason: Nausea And Vomiting Pneumococcal Polyvalent Vaccine (Pneumovax 23) 0.5 ml IM .ONCE ONE Stop: 08/11/19 12:01 Promethazine HCl (Phenergan) 25 mg [place] Q6H PRN PRN Reason: Nausea And Vomiting Sodium Chloride (Sodium Chloride Flush Syringe 10 Ml) 10 ml IV PRN PRN PRN Reason: LINE FLUSH Exam - Constitutional Vitals: Temp Pulse Resp BP Pulse Ox 98.2 F 76 18 112/49 98 08/10/19 08:00 08/10/19 12:07 08/10/19 12:07 08/10/19 12:07 08/10/19 12:07 General appearance: Present: no acute distress - EENT Eyes: Present: PERRL, EOM intact ENT: hearing intact - Neck Neck: Present: supple, normal ROM - Respiratory Respiratory effort: normal Respiratory: bilateral: CTA - Cardiovascular Rhythm: irregularly irregular - Abdominal General gastrointestinal: Present: soft, non-tender, non-distended, normal bowel sounds Female genitourinary: Present: deferred - Rectal Rectal Exam: deferred Results - Labs CBC & Chem 7: 08/10/19 04:36 08/10/19 04:36 Labs: Abnormal lab results 08/09/19 08/09/19 08/09/19 Range/Units 16:20 16:20 16:20 WBC (4.5-11.0) K/mm3 RBC (3.65-5.03) M/mm3 Hgb (10.1-14.3) gm/dl Hct 43.2 H (30.3-42.9) % RDW 17.8 H (13.2-15.2) % Baso # (0.0-0.1) K/mm3 Seg Neuts % (Manual) 79.0 H (40.0-70.0) % Lymphocytes % (Manual) 13.0 L (13.4-35.0) % Eosinophils % (Manual) 5.0 H (0.0-4.3) % Seg Neutrophils # (1.8-7.7) K/mm3 Seg Neutrophils # Man 8.0 H (1.8-7.7) K/mm3 Eosinophils # (Manual) 0.5 H (0.0-0.4) K/mm3 Potassium 5.8 H (3.6-5.0) mmol/L Carbon Dioxide 21 L (22-30) mmol/L Glucose 186 H (65-100) mg/dL POC Glucose (70-105) Hemoglobin A1c (4-6) % CK-MB (CK-2) Rel Index 5.7 H (0-4) Albumin (3.9-5) g/dL HDL Cholesterol (40-59) mg/dL 08/09/19 08/10/19 08/10/19 Range/Units 16:46 04:36 04:36 WBC (4.5-11.0) K/mm3 RBC (3.65-5.03) M/mm3 Hgb (10.1-14.3) gm/dl Hct (30.3-42.9) % RDW (13.2-15.2) % Baso # (0.0-0.1) K/mm3 Seg Neuts % (Manual) (40.0-70.0) % Lymphocytes % (Manual) (13.4-35.0) % Eosinophils % (Manual) (0.0-4.3) % Seg Neutrophils # (1.8-7.7) K/mm3 Seg Neutrophils # Man (1.8-7.7) K/mm3 Eosinophils # (Manual) (0.0-0.4) K/mm3 Potassium (3.6-5.0) mmol/L Carbon Dioxide (22-30) mmol/L Glucose (65-100) mg/dL POC Glucose 139 H (70-105) Hemoglobin A1c 8.0 H (4-6) % CK-MB (CK-2) Rel Index (0-4) Albumin (3.9-5) g/dL HDL Cholesterol 31 L (40-59) mg/dL 08/10/19 08/10/19 08/10/19 Range/Units 04:36 04:36 05:38 WBC 11.9 H (4.5-11.0) K/mm3 RBC 5.51 H (3.65-5.03) M/mm3 Hgb 15.2 H (10.1-14.3) gm/dl Hct 47.4 H (30.3-42.9) % RDW 18.3 H (13.2-15.2) % Baso # 0.2 H (0.0-0.1) K/mm3 Seg Neuts % (Manual) (40.0-70.0) % Lymphocytes % (Manual) (13.4-35.0) % Eosinophils % (Manual) (0.0-4.3) % Seg Neutrophils # 8.0 H (1.8-7.7) K/mm3 Seg Neutrophils # Man (1.8-7.7) K/mm3 Eosinophils # (Manual) (0.0-0.4) K/mm3 Potassium (3.6-5.0) mmol/L Carbon Dioxide (22-30) mmol/L Glucose 109 H (65-100) mg/dL POC Glucose 113 H (70-105) Hemoglobin A1c (4-6) % CK-MB (CK-2) Rel Index (0-4) Albumin 3.6 L (3.9-5) g/dL HDL Cholesterol (40-59) mg/dL 08/10/19 Range/Units 11:53 WBC (4.5-11.0) K/mm3 RBC (3.65-5.03) M/mm3 Hgb (10.1-14.3) gm/dl Hct (30.3-42.9) % RDW (13.2-15.2) % Baso # (0.0-0.1) K/mm3 Seg Neuts % (Manual) (40.0-70.0) % Lymphocytes % (Manual) (13.4-35.0) % Eosinophils % (Manual) (0.0-4.3) % Seg Neutrophils # (1.8-7.7) K/mm3 Seg Neutrophils # Man (1.8-7.7) K/mm3 Eosinophils # (Manual) (0.0-0.4) K/mm3 Potassium (3.6-5.0) mmol/L Carbon Dioxide (22-30) mmol/L Glucose (65-100) mg/dL POC Glucose 186 H (70-105) Hemoglobin A1c (4-6) % CK-MB (CK-2) Rel Index (0-4) Albumin (3.9-5) g/dL HDL Cholesterol (40-59) mg/dL Assessment and Plan 74 y/o female with presumptive acute CVA now admitted to ICU for post TPA follow up and now with new onset afib. 1. 24 hour ICU observation is up at 1700 today 2. Anticoagulation can start after this 3. Follow up cardiology recs 4. BP control and statin therapy 5. Suggest checking TSH and Free T4 levels 6. Will likely sign off once out of unit.
[2019-08-10] MEDS ORDERED: CORDARONE 150 MG in D5W 97 ML IV ONE (14:00)
[2019-08-10] MEDS ORDERED: CORDARONE 900 MG in D5W 482 ML IV SCH (14:00)
--- NOTE | 2019-08-10 15:02 | Progress Note ---
Assessment and Plan Assessment and plan: Patient is a 74-year-old female with history of hypertension and diabetes who presents to [facility] ED via EMS with left sided weakness and left facial droop. Per the chart, patient was in the kitchen cooking earlier that day and developed an acute onset of left sided weaknes. In the ED she had left sided facial droop as well. She was also hypoglycemic in the 50's. She was given tPA around 1700 on 08/09/19. She has no residual deficits this am. She did develop afib throughout the night. * CT head without contrast IMPRESSION: No acute intracranial abnormality. 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 * CTA neck IMPRESSION: There is no CTA evidence of significant stenosis involving the cervical carotid or vertebral arteries by NASCET criteria. Acute CVA s/p tPA: mri pending, Neurologist consult pending, treat with antiplt post 24 hours and statin Atrial fibrillation: Neurologist to evaluate for timing of anticoagulation initiation, Hypertension, permissive: monitor closely DM type 2, HgbA1C 8.0: POC BG monitoring, SSI coverage prn Hyperkalemia, 5.8 on admission: Received Kayexalate and calcium gluconate, Continue to monitor electrolytes DVT PPX: SCD's History Interval history: Patient was seen and examined. Follow-up on current diagnosis of CVA. No overnight events reported to me. Patient denies any chest pain, shortness breath, nausea/vomiting or severe headaches. Imaging, nursing note, chart, labs and old chart reviewed. Discussed with patient. Hospitalist Physical - Physical exam Narrative exam: Gen: WDWN, NAD, Awake, Alert, Orientated HEENT: NCAT, EOMI, PERRL, OP Clear Neck: supple, no adenopathy, no thyromegaly, no JVD CVS/Heart: RRR, normal S1S2, pulses present bilaterally Chest/Lungs: CTA B, Symmetrical chest expansion, good air entry bilaterally GI/Abdomen: soft, NTND, good bowel sounds, no guarding or rebound /Bladder: no suprapubic tenderness, no CVA or paraspinal tenderness Extermity/Skin: no c/c/e, no obvious rash MSK: FROM x 4 Neuro: CN 2-12 grossly intact, mild aphasia, left drift, no new focal deficits Psych: calm - Constitutional Vitals: Temp Pulse Resp BP Pulse Ox 97.6 F 74 24 117/55 94 08/10/19 12:00 08/10/19 14:19 08/10/19 14:19 08/10/19 14:19 08/10/19 14:19 General appearance: Present: no acute distress Results - Labs CBC & Chem 7: 08/10/19 04:36 08/10/19 04:36 Labs: Laboratory Last Values WBC 11.9 K/mm3 (4.5-11.0) H 08/10/19 04:36 RBC 5.51 M/mm3 (3.65-5.03) H 08/10/19 04:36 Hgb 15.2 gm/dl (10.1-14.3) H 08/10/19 04:36 Hct 47.4 % (30.3-42.9) H 08/10/19 04:36 MCV 86 fl (79-97) 08/10/19 04:36 MCH 28 pg (28-32) 08/10/19 04:36 MCHC 32 % (30-34) 08/10/19 04:36 RDW 18.3 % (13.2-15.2) H 08/10/19 04:36 Plt Count 240 K/mm3 (140-440) 08/10/19 04:36 Lymph % (Auto) 24.2 % (13.4-35.0) 08/10/19 04:36 Sherman % (Auto) 4.9 % (0.0-7.3) 08/10/19 04:36 Eos % (Auto) 2.3 % (0.0-4.3) 08/10/19 04:36 Baso % (Auto) 1.4 % (0.0-1.8) 08/10/19 04:36 Lymph # 2.9 K/mm3 (1.2-5.4) 08/10/19 04:36 Sherman # 0.6 K/mm3 (0.0-0.8) 08/10/19 04:36 Eos # 0.3 K/mm3 (0.0-0.4) 08/10/19 04:36 Baso # 0.2 K/mm3 (0.0-0.1) H 08/10/19 04:36 Add Manual Diff Complete 08/09/19 16:20 Total Counted 100 08/09/19 16:20 Seg Neutrophils % 67.2 % (40.0-70.0) 08/10/19 04:36 Seg Neuts % (Manual) 79.0 % (40.0-70.0) H 08/09/19 16:20 0 % 08/09/19 16:20 13.0 % (13.4-35.0) L 08/09/19 16:20 Reactive Lymphs % (Man) 0 % 08/09/19 16:20 3.0 % (0.0-7.3) 08/09/19 16:20 5.0 % (0.0-4.3) H 08/09/19 16:20 0 % (0.0-1.8) 08/09/19 16:20 0 % 08/09/19 16:20 0 % 08/09/19 16:20 0 % 08/09/19 16:20 0 % 08/09/19 16:20 Nucleated RBC % Not Reportable 08/09/19 16:20 Seg Neutrophils # 8.0 K/mm3 (1.8-7.7) H 08/10/19 04:36 Seg Neutrophils # Man 8.0 K/mm3 (1.8-7.7) H 08/09/19 16:20 Band Neutrophils # 0.0 K/mm3 08/09/19 16:20 1.3 K/mm3 (1.2-5.4) 08/09/19 16:20 Abs React Lymphs (Man) 0.0 K/mm3 08/09/19 16:20 0.3 K/mm3 (0.0-0.8) 08/09/19 16:20 0.5 K/mm3 (0.0-0.4) H 08/09/19 16:20 0.0 K/mm3 (0.0-0.1) 08/09/19 16:20 0.0 K/mm3 08/09/19 16:20 0.0 K/mm3 08/09/19 16:20 0.0 K/mm3 08/09/19 16:20 Blast Cells # 0.0 K/mm3 08/09/19 16:20 WBC Morphology Not Reportable 08/09/19 16:20 Hypersegmented Neuts Not Reportable 08/09/19 16:20 Hyposegmented Neuts Not Reportable 08/09/19 16:20 Hypogranular Neuts Not Reportable 08/09/19 16:20 Not Reportable 08/09/19 16:20 Not Reportable 08/09/19 16:20 Not Reportable 08/09/19 16:20 Not Reportable 08/09/19 16:20 Not Reportable 08/09/19 16:20 Not Reportable 08/09/19 16:20 Consistent w auto 08/09/19 16:20 Not Reportable 08/09/19 16:20 Plt Clumps, EDTA Not Reportable 08/09/19 16:20 Not Reportable 08/09/19 16:20 Not Reportable 08/09/19 16:20 Not Reportable 08/09/19 16:20 Plt Morphology Comment Not Reportable 08/09/19 16:20 RBC Morphology Not Reportable 08/09/19 16:20 Dimorphic RBCs Not Reportable 08/09/19 16:20 Not Reportable 08/09/19 16:20 Not Reportable 08/09/19 16:20 Not Reportable 08/09/19 16:20 1+ 08/09/19 16:20 Not Reportable 08/09/19 16:20 Not Reportable 08/09/19 16:20 Not Reportable 08/09/19 16:20 Not Reportable 08/09/19 16:20 Not Reportable 08/09/19 16:20 Not Reportable 08/09/19 16:20 Not Reportable 08/09/19 16:20 Not Reportable 08/09/19 16:20 Not Reportable 08/09/19 16:20 Not Reportable 08/09/19 16:20 Not Reportable 08/09/19 16:20 Not Reportable 08/09/19 16:20 Not Reportable 08/09/19 16:20 Not Reportable 08/09/19 16:20 Not Reportable 08/09/19 16:20 Acanthocytes (Spur) Not Reportable 08/09/19 16:20 Rouleaux Not Reportable 08/09/19 16:20 Not Reportable 08/09/19 16:20 Not Reportable 08/09/19 16:20 Not Reportable 08/09/19 16:20 Not Reportable 08/09/19 16:20 Hem Pathologist Commnt No 08/09/19 16:20 PT 12.8 Sec. (12.2-14.9) 08/09/19 16:20 INR 0.99 (0.87-1.13) 08/09/19 16:20 APTT 28.5 Sec. (24.2-36.6) 08/09/19 16:20 15.7 Sec. (15.1-19.6) 08/09/19 16:20 Sodium 142 mmol/L (137-145) 08/10/19 04:36 Potassium 4.5 mmol/L (3.6-5.0) D 08/10/19 04:36 Chloride 103.7 mmol/L (98-107) 08/10/19 04:36 Carbon Dioxide 27 mmol/L (22-30) 08/10/19 04:36 16 mmol/L 08/10/19 04:36 BUN 13 mg/dL (7-17) 08/10/19 04:36 1.0 mg/dL (0.7-1.2) 08/10/19 04:36 Estimated GFR > 60 ml/min 08/10/19 04:36 13 % 08/10/19 04:36 Glucose 109 mg/dL (65-100) H 08/10/19 04:36 POC Glucose 186 (70-105) H 08/10/19 11:53 8.0 % (4-6) H 08/10/19 04:36 Calcium 9.1 mg/dL (8.4-10.2) 08/10/19 04:36 Magnesium 1.80 mg/dL (1.7-2.3) 08/10/19 13:15 0.40 mg/dL (0.1-1.2) 08/10/19 04:36 < 0.2 mg/dL (0-0.2) 08/09/19 16:20 0.1 mg/dL 08/09/19 16:20 AST 13 units/L (5-40) 08/10/19 04:36 ALT 12 units/L (7-56) 08/10/19 04:36 69 units/L (35-129) 08/10/19 04:36 33 units/L (30-135) 08/09/19 16:20 CK-MB (CK-2) 1.9 ng/mL (0.0-4.0) 08/09/19 16:20 CK-MB (CK-2) Rel Index 5.7 (0-4) H 08/09/19 16:20 < 0.010 ng/mL (0.00-0.029) 08/10/19 04:36 6.8 g/dL (6.3-8.2) 08/10/19 04:36 3.6 g/dL (3.9-5) L 08/10/19 04:36 1.1 % 08/10/19 04:36 Triglycerides 100 mg/dL (2-149) 08/10/19 04:36 Cholesterol 102 mg/dL (50-199) 08/10/19 04:36 62 mg/dL (50-130) 08/10/19 04:36 31 mg/dL (40-59) L 08/10/19 04:36 3.29 % 08/10/19 04:36 TSH 2.240 mlU/mL (0.270-4.200) 08/10/19 13:15 Free T4 1.28 ng/dL (0.76-1.46) 08/10/19 13:15 Active Medications - Current Medications Current Medications: Generic Name Dose Route Start Last Admin Trade Name Freq PRN Reason Stop Dose Admin Acetaminophen 650 mg 08/09/19 19:57 Tylenol PO Q4H PRN Pain, Mild (1-3) Acetaminophen/Hydrocodone Bitart 2 each 08/09/19 19:57 [place]ur 5/325 PO Q6H PRN Pain, Moderate (4-6) Aspirin 325 mg 08/11/19 10:00 Aspirin PO QDAY MIRIAM Atorvastatin Calcium 40 mg 08/09/19 22:00 08/09/19 22:12 Lipitor PO 40 mg QHS MIRIAM Administration Bisacodyl 10 mg 08/09/19 19:57 Dulcolax LA QDAY PRN Constipation Dextrose 50 ml 08/09/19 20:33 D50w (25gm) Syringe IV PRN PRN Hypoglycemia Docusate Sodium 100 mg 08/09/19 22:00 08/10/19 09:40 Colace PO 100 mg BID MIRIAM Administration Hydromorphone HCl 0.5 mg 08/09/19 19:57 Dilaudid IV Q3H PRN Pain , Severe (7-10) Amiodarone HCl 900 mg/ 500 mls @ 33.333 mls/hr 08/10/19 14:00 08/10/19 14:03 Dextrose IV 1 mg/min DIRECT MIRIAM 33.333 mls/hr Administration Protocol 1 MG/MIN Insulin Human Regular 0 units 08/10/19 00:00 08/10/19 12:47 Humulin R SUB-Q 1 units Q6HR MIRIAM Administration Protocol Labetalol HCl 10 mg 08/09/19 19:57 Normodyne IV Q5MIN PRN maintain SBP 180or<,DBP 105or< Magnesium Hydroxide 30 ml 08/09/19 19:57 Milk Of Magnesia PO Q4H PRN Constipation Metoclopramide HCl 10 mg 08/09/19 19:57 Reglan PO Q6H PRN Nausea And Vomiting Ondansetron HCl 4 mg 08/09/19 19:57 Zofran IV Q8H PRN Nausea And Vomiting Pneumococcal Polyvalent Vaccine 0.5 ml 08/11/19 12:00 Pneumovax 23 IM 08/11/19 12:01 .ONCE ONE Promethazine HCl 25 mg 08/09/19 19:57 Phenergan LA Q6H PRN Nausea And Vomiting Sodium Chloride 10 ml 08/09/19 19:57 Sodium Chloride Flush Syringe 10 Ml IV PRN PRN LINE FLUSH Nutrition/Malnutrition Assess - Dietary Evaluation Nutrition/Malnutrition Findings: Nutrition Notes Start: 08/10/19 10:55 Freq: Status: Active Protocol: Document 08/10/19 10:55 LM (Rec: 08/10/19 11:11 LM [id number]) Nutrition Notes Need for Assessment generated from: MD Order,Education Initial or Follow up Assessment Current Diagnosis Diabetes,Hypertension,Stroke Other Pertinent Diagnosis A fib, L side weakness/facial droop Current Diet Cardiac diet Labs/Tests Na 142 BG 109 Pertinent Medications Reviewed Height 5 ft 5 in Weight 95.9 kg Maynard Body Weight (kg) 56.81 BMI 35.2 Weight Status Obese Subjective/Other Information Md consult for diet education. Discussed CVA and DM nutrition with pt. Pt stated she does not always eat well at home and that her weight fluctuates. Pt stated her UBW is in the 200s. Pt stated that she did not get a breakfast this AM. Burn Absent Trauma Absent Minimum of two criteria No #2 Nutrition Diagnosis Food and nutrition-related knowledge deficit Etiology No prior CVA and DM nutrition related education As Evidenced by Signs and Symptoms Pt needing CVA and DM nutrition education #1 Nutrition Diagnosis Predicted suboptimal energy intake Etiology old age, chronic illness As Evidenced by Signs and Symptoms Pt statement of not eating well at home and fluctuating weight Is patient on ventilator? No Is Patient Ambulatory and/or Out of Bed Yes REE-([place] or-ambulatory/OOB) [ 1891.344 [id number]] Kcal/Kg value to use for calculation 16 Approximate Energy Requirements Using 1534 kcal/Kg Calculation Used for Recommendations Kcal/kg Additional Notes Protein: 76-91g (1-1.2g/kg AdBW 76 kg) Fluid: 1 ml/kcal Nutrition Intervention Change Diet Order: Continue cardiac Teaching Recipient Patient Learning Readiness Good Teaching Methods Discussion,Handout Education Handouts Provided Stroke Nutrition Therapy and Carb Counting for People with Diabetes Barriers to Learning No Barriers RD phone number provided Yes Patient aware of follow up options Yes Goal #1 Meet at least 75% of energy and protein needs Goal #2 Adherence to CVA diet Anticipated Discharge Needs: Cardiac/consistent CHO Follow-Up By: 08/14/19 Additional Comments F/U for PO intakes
--- NOTE | 2019-08-10 17:08 | Consultation ---
History of Present Illness Consult date: 08/10/19 Reason for Consult: Stroke Chief complaint: Left sided weakness History of present illness: Patient is a 74-year-old woman with a history of hypertension, and diabetes. Yesterday at approximately 3:30 PM, the patient was in her kitchen cooking, when suddenly she developed left-sided weakness. It was noted that at that time, her blood glucose level was low in the 50s. EMS was called, the patient was brought to the emergency room. Patient was given a dose of dextrose, and there was some improvement in symptoms, however the symptoms once again recurred. The patient was seen by telemetry neurology in the ER, and was felt to be a TPA candidate. TPA was minute administered in the ER yesterday. Today, patient states that her symptoms have completely resolved. Patient was also found to have atrial fibrillation on EKG. She states that she was previously on warfarin, however she was not certain why this was prescribed in the past. Past History Past Medical History: diabetes, hypertension Past Surgical History: No surgical history Social history: lives with family Family history: no significant family history Medications and Allergies Allergies Allergy/AdvReac Type Severity Reaction Status Date / Time No Known Allergies Allergy Unverified 08/09/19 16:08 Home Medications Medication Instructions Recorded Confirmed Last Taken Type Aspirin BABY CHEW TAB 81 mg PO DAILY 08/09/19 08/09/19 Unknown History AtorvaSTATin 20 mg PO DAILY 08/09/19 08/09/19 Unknown History HCTZ 12.5 mg PO DAILY 08/09/19 08/09/19 Unknown History Jardiance 10 mg PO DAILY 08/09/19 08/09/19 Unknown History Levothyroxine 50 mcg PO DAILY 08/09/19 08/09/19 Unknown History Losartan 50 mg PO DAILY 08/09/19 08/09/19 Unknown History metFORMIN 1,000 mg PO BID 08/09/19 08/09/19 Unknown History Active Meds: Active Medications Acetaminophen (Tylenol) 650 mg PO Q4H PRN PRN Reason: Pain, Mild (1-3) Acetaminophen/Hydrocodone Bitart ([place] 5/325) 2 each PO Q6H PRN PRN Reason: Pain, Moderate (4-6) Aspirin (Aspirin) 325 mg PO QDAY [facility] Atorvastatin Calcium (Lipitor) 40 mg PO QHS [facility] Last Admin: 08/09/19 22:12 Dose: 40 mg Documented by: Bisacodyl (Dulcolax) 10 mg HI QDAY PRN PRN Reason: Constipation Dextrose (D50w (25gm) Syringe) 50 ml IV PRN PRN PRN Reason: Hypoglycemia Docusate Sodium (Colace) 100 mg PO BID MIRIAM Last Admin: 08/10/19 09:40 Dose: 100 mg Documented by: Hydromorphone HCl (Dilaudid) 0.5 mg IV Q3H PRN PRN Reason: Pain , Severe (7-10) Amiodarone HCl 900 mg/ (Dextrose) 500 mls @ 33.333 mls/hr IV DIRECT MIRIAM; Protocol Last Admin: 08/10/19 14:03 Dose: 1 mg/min, 33.333 mls/hr Documented by: Insulin Human Regular (Humulin R) 0 units SUB-Q Q6HR MIRIAM; Protocol Last Admin: 08/10/19 12:47 Dose: 1 units Documented by: Labetalol HCl (Normodyne) 10 mg IV Q5MIN PRN PRN Reason: maintain SBP 180or<,DBP 105or< Magnesium Hydroxide (Milk Of Magnesia) 30 ml PO Q4H PRN PRN Reason: Constipation Metoclopramide HCl (Reglan) 10 mg PO Q6H PRN PRN Reason: Nausea And Vomiting Ondansetron HCl (Zofran) 4 mg IV Q8H PRN PRN Reason: Nausea And Vomiting Pneumococcal Polyvalent Vaccine (Pneumovax 23) 0.5 ml IM .ONCE ONE Stop: 08/11/19 12:01 Promethazine HCl (Phenergan) 25 mg HI Q6H PRN PRN Reason: Nausea And Vomiting Sodium Chloride (Sodium Chloride Flush Syringe 10 Ml) 10 ml IV PRN PRN PRN Reason: LINE FLUSH Review of Systems All systems: negative Neurological: weakness Physical Examination - Vital Signs Vital Signs: Vital Signs Pulse Ox 98 08/09/19 16:22 - Physical Exam Narrative exam: Patient is alert, awake, oriented 4, following complex commands. Pupils are equal, round, reactive to light, VFF, tongue midline, bilaterally intact light touch, no facial weakness noted. 5 out of 5 strength in all extremities, 2+ reflexes in all extremities. Bilateral intact to light touch and pinprick. Bilaterally intact to finger to nose and heel to fernandez. - Constitutional General appearance: comfortable - EENT EENT: Present: ATNC, PERRL, mucous membranes moist, hearing intact, vision intact - Respiratory Respiratory: Present: lungs clear, normal breath sounds - Cardiovascular Cardiovascular: Present: regular rate, normal S1, normal S2 Extremities: Present: no peripheral edema bilatateraly, no clubbing, cyanosis - Gastrointestinal Gastrointestinal: Present: normoactive bowel sounds, soft, non-tender - Integumentary Integumentary: Present: normal - Psychiatric Psychiatric: Present: mood/affect appropriate - Level of Consciousness 1a. Level of Consciousness: alert/keenly responsive - LOC Questions 1b. LOC Questions: answers both correctly - LOC Command 1c. LOC Commands: performs tasks correctly - Best Gaze 2. Best Gaze: normal - Visual 3. Visual: no visual loss - Facial Palsy 4. Facial Palsy: normal symmetrical movement - Motor Arm 5a. Motor Arm Left: no drift 5b. Motor Arm Right: no drift - Motor Leg 6a. Motor Leg Left: no drift 6b. Motor Leg Right: no drift - Limb Ataxia 7. Limb Ataxia: absent - Sensory 8. Sensory: normal - Best Language 9. Best Language: no aphasia - Dysarthria 10. Dysarthria: normal - Extinction and Inattention 11. Extinction/Inattention: no abnormality - Scoring Total Score: 0 Stroke Severity: No Stroke Symptoms Results - Laboratory Findings CBC and BMP: 08/10/19 04:36 08/10/19 04:36 Abnormal Lab Findings: Abnormal Labs 08/09/19 08/09/19 08/09/19 16:20 16:20 16:20 WBC RBC Hgb Hct 43.2 H RDW 17.8 H Baso # Seg Neuts % (Manual) 79.0 H Lymphocytes % (Manual) 13.0 L Eosinophils % (Manual) 5.0 H Seg Neutrophils # Seg Neutrophils # Man 8.0 H Eosinophils # (Manual) 0.5 H Potassium 5.8 H Carbon Dioxide 21 L Glucose 186 H POC Glucose Hemoglobin A1c CK-MB (CK-2) Rel Index 5.7 H Albumin HDL Cholesterol 08/09/19 08/10/19 08/10/19 16:46 04:36 04:36 WBC RBC Hgb Hct RDW Baso # Seg Neuts % (Manual) Lymphocytes % (Manual) Eosinophils % (Manual) Seg Neutrophils # Seg Neutrophils # Man Eosinophils # (Manual) Potassium Carbon Dioxide Glucose POC Glucose 139 H Hemoglobin A1c 8.0 H CK-MB (CK-2) Rel Index Albumin HDL Cholesterol 31 L 08/10/19 08/10/19 08/10/19 04:36 04:36 05:38 WBC 11.9 H RBC 5.51 H Hgb 15.2 H Hct 47.4 H RDW 18.3 H Baso # 0.2 H Seg Neuts % (Manual) Lymphocytes % (Manual) Eosinophils % (Manual) Seg Neutrophils # 8.0 H Seg Neutrophils # Man Eosinophils # (Manual) Potassium Carbon Dioxide Glucose 109 H POC Glucose 113 H Hemoglobin A1c CK-MB (CK-2) Rel Index Albumin 3.6 L HDL Cholesterol 08/10/19 08/10/19 11:53 16:30 WBC RBC Hgb Hct RDW Baso # Seg Neuts % (Manual) Lymphocytes % (Manual) Eosinophils % (Manual) Seg Neutrophils # Seg Neutrophils # Man Eosinophils # (Manual) Potassium Carbon Dioxide Glucose POC Glucose 186 H 206 H Hemoglobin A1c CK-MB (CK-2) Rel Index Albumin HDL Cholesterol Assessment and Plan Patient is 74-year-old woman with a history of hypertension and diabetes, present presented yesterday with sudden onset of left-sided weakness, and was found to have low glucose level. Patient was given dextrose, and symptoms did improve to some extent, however symptoms worsen once again, and patient was given TPA in the ER. According the patient's clinical findings, it is possible that she's had an acute ischemic stroke. Plan: 1. Possible stroke vs. TIA vs. hypoglycemic event causing neurologic deficits: - Patient given tPA in ER. Continue to follow post-tPA protocol - MRI pending - CTA head/neck did not reveal any significant stenosis - Echo: EF 55-60%, LA normal size. - LDL 62. Cont. Atorvastatin 20mg daily. - HbA1C 8.0 - Patient was found to have A-fib on EKG - Recommend waiting until MRI complete prior to deciding on timing of when to start anticoagulation - PT/OT/ST. - DVT Ppx: Recommend lovenox 24 hours after tPA administration. - Telemetry monitoring while in house. 2. Hypertension: - Recommend BP goal of less than 220/120 for 24 hours, to allow for permissive hypertension. Can target normotension from tomorrow. - Will continue to monitor the patient. Thank you for allowing me to take part in the care of this patient. Ridge Isaacs MD Neurology
[2019-08-10] MEDS: NORCO 5/325 PO PRN (21:47)
[2019-08-10] MEDS: SODIUM CHLORIDE FLUSH SYRINGE 10 ML IV PRN (21:47)
[2019-08-11] MEDS: HumuLIN R SUB-Q SCH (05:10)
[2019-08-11] MEDS: ASPIRIN PO SCH (10:06)
[2019-08-11] MEDS: COLACE PO SCH ×2 (10:06→22:34)
--- NOTE | 2019-08-11 10:44 | Progress Note ---
Assessment and Plan Pt presented with apparent acute CVA and ? new onset AFib. Pt received tPA in ED on 08/09 @ approx 1700. She converted to SR after administration of IV amio and is in SR this AM on evaluation. D/c IV amio and cont to monitor on telemetry. Consider addition of BB if BPs permit. Echo reviewed - EF 55-60%, trace MR and trace TR, trivial pericardial effusion. Ultimately, she would benefit from initiation of systemic AC in setting of AFib. Per neurology, recommend waiting until MRI complete prior to deciding on timing of when to start anticoagulation. Would start NOAC WILLIAM if/when okay per neurology. The patient has been seen in conjunction with Dr. Leoncio Rosario who agrees with the assessment and plan of care. - Patient Problems (1) Acute CVA (cerebrovascular accident) Current Visit: Yes Status: Acute (2) Atrial fibrillation with RVR Current Visit: Yes Status: Acute (3) HTN (hypertension) Current Visit: Yes Status: Chronic (4) Diabetes Current Visit: Yes Status: Chronic Subjective Date of service: 08/11/19 Principal diagnosis: CVA; AFib Interval history: pt resting in bed, states she is feeling better. She converted to SR overnight, amio gtt held. Objective Last Vital Signs Temp 98.1 F 08/11/19 07:18 Pulse 66 08/11/19 05:04 Resp 18 08/11/19 07:18 BP 148/59 08/11/19 07:18 Pulse Ox 95 08/11/19 05:04 - Physical Examination General: No Apparent Distress HEENT: Positive: PERRL, Normocephaly, Mucus Membranes Moist Neck: Positive: neck supple, trachea midline Cardiac: Positive: Reg Rate and Rhythm, S1/S2 Lungs: Positive: Decreased Breath Sounds Neuro: Positive: Grossly Intact Abdomen: Negative: Tender Skin: Negative: Rash Musculoskeletal: No Pain Extremities: Absent: edema - Imaging and Cardiology EKG: report reviewed, image reviewed Echo: pending
[2019-08-11] MEDS ORDERED: PNEUMOVAX 23 IM ONE (12:00)
--- NOTE | 2019-08-11 13:39 | Progress Note ---
Assessment and Plan Assessment and plan: Patient is a 74-year-old female with history of hypertension and diabetes who presents to [facility] ED via EMS with left sided weakness and left facial droop. Per the chart, patient was in the kitchen cooking earlier that day and developed an acute onset of left sided weaknes. In the ED she had left sided facial droop as well. She was also hypoglycemic in the 50's. She was given tPA around 1700 on 08/09/19. She has no residual deficits this am. She did develop afib throughout the night. * CT head without contrast IMPRESSION: No acute intracranial abnormality. 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 * CTA neck IMPRESSION: There is no CTA evidence of significant stenosis involving the cervical carotid or vertebral arteries by NASCET criteria. Acute CVA s/p tPA: mri pending, Neurologist consult pending, treat with antiplt post 24 hours and statin Atrial fibrillation: Neurologist to evaluate for timing of anticoagulation initiation, Hypertension, permissive: monitor closely DM type 2, HgbA1C 8.0: POC BG monitoring, SSI coverage prn Hyperkalemia, 5.8 on admission: Received Kayexalate and calcium gluconate, Continue to monitor electrolytes DVT PPX: SCD's MRI brain pending History Interval history: Patient was seen and examined. Follow-up on current diagnosis of CVA. No overnight events reported to me. Patient denies any chest pain, shortness breath, nausea/vomiting or severe headaches. Imaging, nursing note, chart, labs and old chart reviewed. Discussed with patient. Hospitalist Physical - Physical exam Narrative exam: Gen: WDWN, NAD, Awake, Alert, Orientated HEENT: NCAT, EOMI, PERRL, OP Clear Neck: supple, no adenopathy, no thyromegaly, no JVD CVS/Heart: RRR, normal S1S2, pulses present bilaterally Chest/Lungs: CTA B, Symmetrical chest expansion, good air entry bilaterally GI/Abdomen: soft, NTND, good bowel sounds, no guarding or rebound /Bladder: no suprapubic tenderness, no CVA or paraspinal tenderness Extermity/Skin: no c/c/e, no obvious rash MSK: FROM x 4 Neuro: CN 2-12 grossly intact, mild aphasia, left drift, no new focal deficits Psych: calm - Constitutional Vitals: Temp Pulse Resp BP Pulse Ox 98.1 F 66 18 148/59 95 08/11/19 07:18 08/11/19 05:04 08/11/19 07:18 08/11/19 07:18 08/11/19 05:04 General appearance: Present: no acute distress Results - Labs CBC & Chem 7: 08/10/19 04:36 08/10/19 04:36 Labs: Laboratory Last Values WBC 11.9 K/mm3 (4.5-11.0) H 08/10/19 04:36 RBC 5.51 M/mm3 (3.65-5.03) H 08/10/19 04:36 Hgb 15.2 gm/dl (10.1-14.3) H 08/10/19 04:36 Hct 47.4 % (30.3-42.9) H 08/10/19 04:36 MCV 86 fl (79-97) 08/10/19 04:36 MCH 28 pg (28-32) 08/10/19 04:36 MCHC 32 % (30-34) 08/10/19 04:36 RDW 18.3 % (13.2-15.2) H 08/10/19 04:36 Plt Count 240 K/mm3 (140-440) 08/10/19 04:36 Lymph % (Auto) 24.2 % (13.4-35.0) 08/10/19 04:36 Delta % (Auto) 4.9 % (0.0-7.3) 08/10/19 04:36 Eos % (Auto) 2.3 % (0.0-4.3) 08/10/19 04:36 Baso % (Auto) 1.4 % (0.0-1.8) 08/10/19 04:36 Lymph # 2.9 K/mm3 (1.2-5.4) 08/10/19 04:36 Delta # 0.6 K/mm3 (0.0-0.8) 08/10/19 04:36 Eos # 0.3 K/mm3 (0.0-0.4) 08/10/19 04:36 Baso # 0.2 K/mm3 (0.0-0.1) H 08/10/19 04:36 Add Manual Diff Complete 08/09/19 16:20 Total Counted 100 08/09/19 16:20 Seg Neutrophils % 67.2 % (40.0-70.0) 08/10/19 04:36 Seg Neuts % (Manual) 79.0 % (40.0-70.0) H 08/09/19 16:20 0 % 08/09/19 16:20 13.0 % (13.4-35.0) L 08/09/19 16:20 Reactive Lymphs % (Man) 0 % 08/09/19 16:20 3.0 % (0.0-7.3) 08/09/19 16:20 5.0 % (0.0-4.3) H 08/09/19 16:20 0 % (0.0-1.8) 08/09/19 16:20 0 % 08/09/19 16:20 0 % 08/09/19 16:20 0 % 08/09/19 16:20 0 % 08/09/19 16:20 Nucleated RBC % Not Reportable 08/09/19 16:20 Seg Neutrophils # 8.0 K/mm3 (1.8-7.7) H 08/10/19 04:36 Seg Neutrophils # Man 8.0 K/mm3 (1.8-7.7) H 08/09/19 16:20 Band Neutrophils # 0.0 K/mm3 08/09/19 16:20 1.3 K/mm3 (1.2-5.4) 08/09/19 16:20 Abs React Lymphs (Man) 0.0 K/mm3 08/09/19 16:20 0.3 K/mm3 (0.0-0.8) 08/09/19 16:20 0.5 K/mm3 (0.0-0.4) H 08/09/19 16:20 0.0 K/mm3 (0.0-0.1) 08/09/19 16:20 0.0 K/mm3 08/09/19 16:20 0.0 K/mm3 08/09/19 16:20 0.0 K/mm3 08/09/19 16:20 Blast Cells # 0.0 K/mm3 08/09/19 16:20 WBC Morphology Not Reportable 08/09/19 16:20 Hypersegmented Neuts Not Reportable 08/09/19 16:20 Hyposegmented Neuts Not Reportable 08/09/19 16:20 Hypogranular Neuts Not Reportable 08/09/19 16:20 Not Reportable 08/09/19 16:20 Not Reportable 08/09/19 16:20 Not Reportable 08/09/19 16:20 Not Reportable 08/09/19 16:20 Not Reportable 08/09/19 16:20 Not Reportable 08/09/19 16:20 Consistent w auto 08/09/19 16:20 Not Reportable 08/09/19 16:20 Plt Clumps, EDTA Not Reportable 08/09/19 16:20 Not Reportable 08/09/19 16:20 Not Reportable 08/09/19 16:20 Not Reportable 08/09/19 16:20 Plt Morphology Comment Not Reportable 08/09/19 16:20 RBC Morphology Not Reportable 08/09/19 16:20 Dimorphic RBCs Not Reportable 08/09/19 16:20 Not Reportable 08/09/19 16:20 Not Reportable 08/09/19 16:20 Not Reportable 08/09/19 16:20 1+ 08/09/19 16:20 Not Reportable 08/09/19 16:20 Not Reportable 08/09/19 16:20 Not Reportable 08/09/19 16:20 Not Reportable 08/09/19 16:20 Not Reportable 08/09/19 16:20 Not Reportable 08/09/19 16:20 Not Reportable 08/09/19 16:20 Not Reportable 08/09/19 16:20 Not Reportable 08/09/19 16:20 Not Reportable 08/09/19 16:20 Not Reportable 08/09/19 16:20 Not Reportable 08/09/19 16:20 Not Reportable 08/09/19 16:20 Not Reportable 08/09/19 16:20 Not Reportable 08/09/19 16:20 Acanthocytes (Spur) Not Reportable 08/09/19 16:20 Rouleaux Not Reportable 08/09/19 16:20 Not Reportable 08/09/19 16:20 Not Reportable 08/09/19 16:20 Not Reportable 08/09/19 16:20 Not Reportable 08/09/19 16:20 Hem Pathologist Commnt No 08/09/19 16:20 PT 12.8 Sec. (12.2-14.9) 08/09/19 16:20 INR 0.99 (0.87-1.13) 08/09/19 16:20 APTT 28.5 Sec. (24.2-36.6) 08/09/19 16:20 15.7 Sec. (15.1-19.6) 08/09/19 16:20 Sodium 142 mmol/L (137-145) 08/10/19 04:36 Potassium 4.5 mmol/L (3.6-5.0) D 08/10/19 04:36 Chloride 103.7 mmol/L (98-107) 08/10/19 04:36 Carbon Dioxide 27 mmol/L (22-30) 08/10/19 04:36 16 mmol/L 08/10/19 04:36 BUN 13 mg/dL (7-17) 08/10/19 04:36 1.0 mg/dL (0.7-1.2) 08/10/19 04:36 Estimated GFR > 60 ml/min 08/10/19 04:36 13 % 08/10/19 04:36 Glucose 109 mg/dL (65-100) H 08/10/19 04:36 POC Glucose 252 (70-105) H 08/11/19 11:26 8.0 % (4-6) H 08/10/19 04:36 Calcium 9.1 mg/dL (8.4-10.2) 08/10/19 04:36 Magnesium 1.80 mg/dL (1.7-2.3) 08/10/19 13:15 0.40 mg/dL (0.1-1.2) 08/10/19 04:36 < 0.2 mg/dL (0-0.2) 08/09/19 16:20 0.1 mg/dL 08/09/19 16:20 AST 13 units/L (5-40) 08/10/19 04:36 ALT 12 units/L (7-56) 08/10/19 04:36 69 units/L (35-129) 08/10/19 04:36 33 units/L (30-135) 08/09/19 16:20 CK-MB (CK-2) 1.9 ng/mL (0.0-4.0) 08/09/19 16:20 CK-MB (CK-2) Rel Index 5.7 (0-4) H 08/09/19 16:20 < 0.010 ng/mL (0.00-0.029) 08/10/19 04:36 6.8 g/dL (6.3-8.2) 08/10/19 04:36 3.6 g/dL (3.9-5) L 08/10/19 04:36 1.1 % 08/10/19 04:36 Triglycerides 100 mg/dL (2-149) 08/10/19 04:36 Cholesterol 102 mg/dL (50-199) 08/10/19 04:36 62 mg/dL (50-130) 08/10/19 04:36 31 mg/dL (40-59) L 08/10/19 04:36 3.29 % 08/10/19 04:36 TSH 2.240 mlU/mL (0.270-4.200) 08/10/19 13:15 Free T4 1.28 ng/dL (0.76-1.46) 08/10/19 13:15 Active Medications - Current Medications Current Medications: Generic Name Dose Route Start Last Admin Trade Name Freq PRN Reason Stop Dose Admin Acetaminophen 650 mg 08/09/19 19:57 Tylenol PO Q4H PRN Pain, Mild (1-3) Acetaminophen/Hydrocodone Bitart 2 each 08/09/19 19:57 08/10/19 21:47 [place] 5/325 PO 2 each Q6H PRN Administration Pain, Moderate (4-6) Aspirin 325 mg 08/11/19 10:00 08/11/19 10:06 Aspirin PO 325 mg QDAY MIRIAM Administration Atorvastatin Calcium 40 mg 08/09/19 22:00 08/10/19 21:47 Lipitor PO 40 mg QHS MIRIAM Administration Bisacodyl 10 mg 08/09/19 19:57 Dulcolax UT QDAY PRN Constipation Dextrose 50 ml 08/09/19 20:33 D50w (25gm) Syringe IV PRN PRN Hypoglycemia Docusate Sodium 100 mg 08/09/19 22:00 08/11/19 10:06 Colace PO 100 mg BID MIRIAM Administration Hydromorphone HCl 0.5 mg 08/09/19 19:57 Dilaudid IV Q3H PRN Pain , Severe (7-10) Insulin Human Regular 0 units 08/10/19 00:00 08/11/19 05:10 Humulin R SUB-Q Not Given Q6HR [facility] Protocol Labetalol HCl 10 mg 08/09/19 19:57 Normodyne IV Q5MIN PRN maintain SBP 180or<,DBP 105or< Magnesium Hydroxide 30 ml 08/09/19 19:57 Milk Of Magnesia PO Q4H PRN Constipation Metoclopramide HCl 10 mg 08/09/19 19:57 Reglan PO Q6H PRN Nausea And Vomiting Ondansetron HCl 4 mg 08/09/19 19:57 Zofran IV Q8H PRN Nausea And Vomiting Promethazine HCl 25 mg 08/09/19 19:57 Phenergan UT Q6H PRN Nausea And Vomiting Sodium Chloride 10 ml 08/09/19 19:57 08/10/19 21:47 Sodium Chloride Flush Syringe 10 Ml IV 10 ml PRN PRN Administration LINE FLUSH Nutrition/Malnutrition Assess - Dietary Evaluation Nutrition/Malnutrition Findings: Nutrition Notes Start: 08/10/19 10:5 5 Freq: Status: Active Protocol: Document 08/10/19 10:55 LM (Rec: 08/10/19 11:11 LM [id number]) Nutrition Notes Need for Assessment generated from: MD Order,Education Initial or Follow up Assessment Current Diagnosis Diabetes,Hypertension,Stroke Other Pertinent Diagnosis A fib, L side weakness/facial droop Current Diet Cardiac diet Labs/Tests Na 142 BG 109 Pertinent Medications Reviewed Height 5 ft 5 in Weight 95.9 kg [place] Body Weight (kg) 56.81 BMI 35.2 Weight Status Obese Subjective/Other Information Md consult for diet education. Discussed CVA and DM nutrition with pt. Pt stated she does not always eat well at home and that her weight fluctuates. Pt stated her UBW is in the 200s. Pt stated that she did not get a breakfast this AM. Burn Absent Trauma Absent Minimum of two criteria No #2 Nutrition Diagnosis Food and nutrition-related knowledge deficit Etiology No prior CVA and DM nutrition related education As Evidenced by Signs and Symptoms Pt needing CVA and DM nutrition education #1 Nutrition Diagnosis Predicted suboptimal energy intake Etiology old age, chronic illness As Evidenced by Signs and Symptoms Pt statement of not eating well at home and fluctuating weight Is patient on ventilator? No Is Patient Ambulatory and/or Out of Bed Yes REE-([place] or-ambulatory/OOB) [ 1891.344 [id number]] Kcal/Kg value to use for calculation 16 Approximate Energy Requirements Using 1534 kcal/Kg Calculation Used for Recommendations Kcal/kg Additional Notes Protein: 76-91g (1-1.2g/kg AdBW 76 kg) Fluid: 1 ml/kcal Nutrition Intervention Change Diet Order: Continue cardiac Teaching Recipient Patient Learning Readiness Good Teaching Methods Discussion,Handout Education Handouts Provided Stroke Nutrition Therapy and Carb Counting for People with Diabetes Barriers to Learning No Barriers RD phone number provided Yes Patient aware of follow up options Yes Goal #1 Meet at least 75% of energy and protein needs Goal #2 Adherence to CVA diet Anticipated Discharge Needs: Cardiac/consistent CHO Follow-Up By: 08/14/19 Additional Comments F/U for PO intakes
--- NOTE | 2019-08-11 15:11 | Magnetic Resonance Report ---
MRI BRAIN WITHOUT CONTRAST INDICATION / CLINICAL INFORMATION: stroke., Left-sided weakness. TECHNIQUE: Multiplanar, multisequence MR images of the brain were obtained. COMPARISON: None available. FINDINGS: BRAIN / INTRACRANIAL CONTENTS: There is acute/subacute infarct along the posterior right basal gangli a measuring 1.3 cm in greatest AP dimension. There are also appear to be subtle findings along the ri ght periventricular region at. Additionally, there is a small 4 mm focus of the right posterior tempo ral cortical region. Subtle increased signal centered along the cortex of the posterior right insula. 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 There is mild cerebral atrophy commensurate with age. The ventric ular system is correspondingly appropriate in size and configuration. No extra-axial fluid collection s or significant mass effect is identified. CRANIOCERVICAL JUNCTION: No significant abnormality. 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 ORBITS: No significant abnormality of visualized orbits. SINUSES / MASTOIDS: No significant abnormality of the visualized paranasal sinuses or mastoid air diamond ls. ADDITIONAL FINDINGS: None. IMPRESSION: 1. There are acute/subacute infarcts along the posterior right basal ganglia, periventricular region and posterior temporal lobe as detailed above. Signer Name: Long Guerrero MD Signed: 08/11/2019 3:07 PM Workstation Name: [id number]
--- NOTE | 2019-08-11 19:33 | Progress Note ---
Assessment and Plan Patient is 74-year-old woman with a history of hypertension and diabetes, present presented yesterday with sudden onset of left-sided weakness, and was found to have low glucose level. Patient was given dextrose, and symptoms did improve to some extent, however symptoms worsen once again, and patient was given TPA in the ER. According the patient's clinical findings, the patient has had an acute ischemic stroke. Plan: 1. Stroke: - Patient given tPA in ER. Continue to follow post-tPA protocol - MRI revealed right subcortical, as well as small temporal parietal infarcts. Likely etiology is embolic. - CTA head/neck did not reveal any significant stenosis - Echo: EF 55-60%, LA normal size. - LDL 62. Cont. Atorvastatin 20mg daily. Goal LDL less than 70. - HbA1C 8.0 - Patient was found to have A-fib on EKG -As patient is noted to have small infarcts on MRI, and symptoms have now resolved, recommend starting patient on anticoagulation tomorrow, on 08/12/2019. - PT/OT/ST. - DVT Ppx: Recommend lovenox 24 hours after tPA administration. - Telemetry monitoring while in house. 2. Hypertension: - Recommend BP goal of normotension. - Will sign off as I will not be covering neurology service over the weekend. Please consult neuroligst covering weekend for further neurologic monitoring and management. Thank you for allowing me to take part in the care of this patient. Ridge Isaacs MD Neurology Subjective Date of service: 08/11/19 Principal diagnosis: CVA; AFib Interval history: No acute events overnight. Objective - Exam Narrative Exam: Patient is alert, awake, oriented 4, following complex commands. Pupils are equal, round, reactive to light, VFF, tongue midline, bilaterally intact light touch, no facial weakness noted. 5 out of 5 strength in all extremities, 2+ reflexes in all extremities. Bilateral intact to light touch and pinprick. Bi laterally intact to finger to nose and heel to fernandez. - Vital Sign Vital Signs - 12hr 08/11/19 08/11/19 10:00 13:49 Pulse Rate 68 O2 Sat by Pulse 96 98 Oximetry - General Apperance Constitutional: comfortable - EENT EENT: ATNC, PERRL, mucous membranes moist, hearing intact, vision intact - Respiratory Respiratory: lungs clear, normal breath sounds - Cardiovascular Cardiovascular: regular rate, normal S1, normal S2 Extremities: no peripheral edema bilat, no clubbing, cyanosis - Gastrointestinal Gastrointestinal: normoactive bowel sounds, soft, non-tender - Integumentary Integumentary: normal - Psychiatric Psychiatric: mood/affect appropriate - Laboratory Findings CBC and BMP: 08/10/19 04:36 08/10/19 04:36 Abnormal Lab Findings: Abnormal Labs 08/09/19 08/09/19 08/09/19 16:20 16:20 16:20 WBC RBC Hgb Hct 43.2 H RDW 17.8 H Baso # Seg Neuts % (Manual) 79.0 H Lymphocytes % (Manual) 13.0 L Eosinophils % (Manual) 5.0 H Seg Neutrophils # Seg Neutrophils # Man 8.0 H Eosinophils # (Manual) 0.5 H Potassium 5.8 H Carbon Dioxide 21 L Glucose 186 H POC Glucose Hemoglobin A1c CK-MB (CK-2) Rel Index 5.7 H Albumin HDL Cholesterol 08/09/19 08/10/19 08/10/19 16:46 04:36 04:36 WBC RBC Hgb Hct RDW Baso # Seg Neuts % (Manual) Lymphocytes % (Manual) Eosinophils % (Manual) Seg Neutrophils # Seg Neutrophils # Man Eosinophils # (Manual) Potassium Carbon Dioxide Glucose POC Glucose 139 H Hemoglobin A1c 8.0 H CK-MB (CK-2) Rel Index Albumin HDL Cholesterol 31 L 08/10/19 08/10/19 08/10/19 04:36 04:36 05:38 WBC 11.9 H RBC 5.51 H Hgb 15.2 H Hct 47.4 H RDW 18.3 H Baso # 0.2 H Seg Neuts % (Manual) Lymphocytes % (Manual) Eosinophils % (Manual) Seg Neutrophils # 8.0 H Seg Neutrophils # Man Eosinophils # (Manual) Potassium Carbon Dioxide Glucose 109 H POC Glucose 113 H Hemoglobin A1c CK-MB (CK-2) Rel Index Albumin 3.6 L HDL Cholesterol 08/10/19 08/10/19 08/11/19 11:53 16:30 11:26 WBC RBC Hgb Hct RDW Baso # Seg Neuts % (Manual) Lymphocytes % (Manual) Eosinophils % (Manual) Seg Neutrophils # Seg Neutrophils # Man Eosinophils # (Manual) Potassium Carbon Dioxide Glucose POC Glucose 186 H 206 H 252 H Hemoglobin A1c CK-MB (CK-2) Rel Index Albumin HDL Cholesterol 08/11/19 18:28 WBC RBC Hgb Hct RDW Baso # Seg Neuts % (Manual) Lymphocytes % (Manual) Eosinophils % (Manual) Seg Neutrophils # Seg Neutrophils # Man Eosinophils # (Manual) Potassium Carbon Dioxide Glucose POC Glucose 228 H Hemoglobin A1c CK-MB (CK-2) Rel Index Albumin HDL Cholesterol
[2019-08-11] MEDS: NORCO 5/325 PO PRN (22:33)
[2019-08-12] MEDS: HumuLIN R SUB-Q SCH ×5 (06:00→12:20)
[2019-08-12] MEDS ORDERED: CORDARONE 150 MG in D5W 97 ML IV ONE (09:20)
[2019-08-12] MEDS: COLACE PO SCH ×2 (09:39→22:47)
[2019-08-12] MEDS: ASPIRIN PO SCH (09:39)
--- NOTE | 2019-08-12 11:22 | Progress Note ---
Assessment and Plan Patient noted to be in a-fib with RVR this morning. Given amio bolus x1, now in afib with CVR. Will add metoprolol for rate control and hold on antiarrhythmics for now. Will continue to monitor on telemetry. Await neurology clearance to initiate OAC. The patient has been seen in conjunction with Dr. Jones, who agrees with the assessment and plan. - Patient Problems (1) Acute CVA (cerebrovascular accident) Current Visit: Yes Status: Acute (2) Atrial fibrillation with RVR Current Visit: Yes Status: Acute (3) Diabetes Current Visit: Yes Status: Chronic (4) HTN (hypertension) Current Visit: Yes Status: Chronic Subjective Date of service: 08/12/19 Principal diagnosis: CVA; AFib Interval history: The patient is sitting up in bed in NAD. She has no cardiac complaints. Telemetry reviewed - noted to be in atrial fibrillation with RVR. Asymptomatic at this time. Objective Last Vital Signs Temp 98.1 F 08/12/19 04:31 Pulse 104 H 08/12/19 10:00 Resp 18 08/12/19 04:31 BP 157/69 08/12/19 04:31 Pulse Ox 96 08/12/19 04:31 - Physical Examination General: No Apparent Distress HEENT: Positive: PERRL, Normocephaly, Mucus Membranes Moist Neck: Positive: neck supple, trachea midline Cardiac: Positive: irregularly irregular Lungs: Positive: Normal Exam Neuro: Positive: Grossly Intact Abdomen: Positive: Unremarkable. Negative: Tender /Rectal: Other (deferred) Skin: Positive: Clear. Negative: Rash Musculoskeletal: No Pain Extremities: Present: normal. Absent: edema - Imaging and Cardiology EKG: report reviewed, image reviewed Echo: pending (08/09/19: EF 55-60%, trace MR, trace TR, trivial pericardial effusion )
[2019-08-12] MEDS: LOPRESSOR PO SCH ×2 (12:23→22:48)
[2019-08-12] MEDS ORDERED: D50W (25GM) Syringe IV PRN (13:15)
--- NOTE | 2019-08-12 13:23 | Progress Note ---
Assessment and Plan Assessment and plan: Patient is a 74-year-old female with history of hypertension and diabetes who presents to [facility] ED via EMS with left sided weakness and left facial droop. Per the chart, patient was in the kitchen cooking earlier that day and developed an acute onset of left sided weaknes. In the ED she had left sided facial droop as well. She was also hypoglycemic in the 50's. She was given tPA around 1700 on 08/09/19. She has no residual deficits this am. She did develop afib throughout the night. * CT head without contrast IMPRESSION: No acute intracranial abnormality. 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 * CTA neck IMPRESSION: There is no CTA evidence of significant stenosis involving the cervical carotid or vertebral arteries by NASCET criteria. * MRI brain without contrast IMPRESSION: 1. There are acute/subacute infarcts along the posterior right basal ganglia, periventricular region and posterior temporal lobe as detailed above. Acute CVA s/p tPA: mri reviewed, Neurologist consult pending, treat with antiplt post 24 hours and statin==>Ok to start Antiocoagulation on 08/12/19. Stop Aspirin when anti-coagulation started per Neurology Atrial fibrillation with RVR: re-started IV Amiodarone drip, Cardiology is following Hypertension, permissive: monitor closely DM type 2, HgbA1C 8.0: POC BG monitoring, SSI coverage prn Hyperkalemia, 5.8 on admission: Received Kayexalate and calcium gluconate, Continue to monitor electrolytes DVT PPX: SCD's Disposition: continue inpatient care, once AFib is controlled then d/c home. CCT 34 minutes History Interval history: Patient was seen and examined. Follow-up on current diagnosis of CVA. No over night events reported to me. Patient denies any chest pain, shortness breath, nausea/vomiting or severe headaches. Imaging, nursing note, chart, labs and old chart reviewed. Discussed with patient. Hospitalist Physical - Physical exam Narrative exam: Gen: WDWN, NAD, Awake, Alert, Orientated HEENT: NCAT, EOMI, PERRL, OP Clear Neck: supple, no adenopathy, no thyromegaly, no JVD CVS/Heart: RRR, normal S1S2, pulses present bilaterally Chest/Lungs: CTA B, Symmetrical chest expansion, good air entry bilaterally GI/Abdomen: soft, NTND, good bowel sounds, no guarding or rebound /Bladder: no suprapubic tenderness, no CVA or paraspinal tenderness Extermity/Skin: no c/c/e, no obvious rash MSK: FROM x 4 Neuro: CN 2-12 grossly intact, mild aphasia, left drift, no new focal deficits Psych: calm - Constitutional Vitals: Temp Pulse Resp BP Pulse Ox 98.1 F 104 H 18 157/69 96 08/12/19 04:31 08/12/19 10:00 08/12/19 04:31 08/12/19 04:31 08/12/19 04:31 General appearance: Present: no acute distress Results - Labs CBC & Chem 7: 08/10/19 04:36 08/10/19 04:36 Labs: Laboratory Last Values WBC 11.9 K/mm3 (4.5-11.0) H 08/10/19 04:36 RBC 5.51 M/mm3 (3.65-5.03) H 08/10/19 04:36 Hgb 15.2 gm/dl (10.1-14.3) H 08/10/19 04:36 Hct 47.4 % (30.3-42.9) H 08/10/19 04:36 MCV 86 fl (79-97) 08/10/19 04:36 MCH 28 pg (28-32) 08/10/19 04:36 MCHC 32 % (30-34) 08/10/19 04:36 RDW 18.3 % (13.2-15.2) H 08/10/19 04:36 Plt Count 240 K/mm3 (140-440) 08/10/19 04:36 Lymph % (Auto) 24.2 % (13.4-35.0) 08/10/19 04:36 Craig % (Auto) 4.9 % (0.0-7.3) 08/10/19 04:36 Eos % (Auto) 2.3 % (0.0-4.3) 08/10/19 04:36 Baso % (Auto) 1.4 % (0.0-1.8) 08/10/19 04:36 Lymph # 2.9 K/mm3 (1.2-5.4) 08/10/19 04:36 Craig # 0.6 K/mm3 (0.0-0.8) 08/10/19 04:36 Eos # 0.3 K/mm3 (0.0-0.4) 08/10/19 04:36 Baso # 0.2 K/mm3 (0.0-0.1) H 08/10/19 04:36 Add Manual Diff Complete 08/09/19 16:20 Total Counted 100 08/09/19 16:20 Seg Neutrophils % 67.2 % (40.0-70.0) 08/10/19 04:36 Seg Neuts % (Manual) 79.0 % (40.0-70.0) H 08/09/19 16:20 0 % 08/09/19 16:20 13.0 % (13.4-35.0) L 08/09/19 16:20 Reactive Lymphs % (Man) 0 % 08/09/19 16:20 3.0 % (0.0-7.3) 08/09/19 16:20 5.0 % (0.0-4.3) H 08/09/19 16:20 0 % (0.0-1.8) 08/09/19 16:20 0 % 08/09/19 16:20 0 % 08/09/19 16:20 0 % 08/09/19 16:20 0 % 08/09/19 16:20 Nucleated RBC % Not Reportable 08/09/19 16:20 Seg Neutrophils # 8.0 K/mm3 (1.8-7.7) H 08/10/19 04:36 Seg Neutrophils # Man 8.0 K/mm3 (1.8-7.7) H 08/09/19 16:20 Band Neutrophils # 0.0 K/mm3 08/09/19 16:20 1.3 K/mm3 (1.2-5.4) 08/09/19 16:20 Abs React Lymphs (Man) 0.0 K/mm3 08/09/19 16:20 0.3 K/mm3 (0.0-0.8) 08/09/19 16:20 0.5 K/mm3 (0.0-0.4) H 08/09/19 16:20 0.0 K/mm3 (0.0-0.1) 08/09/19 16:20 0.0 K/mm3 08/09/19 16:20 0.0 K/mm3 08/09/19 16:20 0.0 K/mm3 08/09/19 16:20 Blast Cells # 0.0 K/mm3 08/09/19 16:20 WBC Morphology Not Reportable 08/09/19 16:20 Hypersegmented Neuts Not Reportable 08/09/19 16:20 Hyposegmented Neuts Not Reportable 08/09/19 16:20 Hypogranular Neuts Not Reportable 08/09/19 16:20 Not Reportable 08/09/19 16:20 Not Reportable 08/09/19 16:20 Not Reportable 08/09/19 16:20 Not Reportable 08/09/19 16:20 Not Reportable 08/09/19 16:20 Not Reportable 08/09/19 16:20 Consistent w auto 08/09/19 16:20 Not Reportable 08/09/19 16:20 Plt Clumps, EDTA Not Reportable 08/09/19 16:20 Not Reportable 08/09/19 16:20 Not Reportable 08/09/19 16:20 Not Reportable 08/09/19 16:20 Plt Morphology Comment Not Reportable 08/09/19 16:20 RBC Morphology Not Reportable 08/09/19 16:20 Dimorphic RBCs Not Reportable 08/09/19 16:20 Not Reportable 08/09/19 16:20 Not Reportable 08/09/19 16:20 Not Reportable 08/09/19 16:20 1+ 08/09/19 16:20 Not Reportable 08/09/19 16:20 Not Reportable 08/09/19 16:20 Not Reportable 08/09/19 16:20 Not Reportable 08/09/19 16:20 Not Reportable 08/09/19 16:20 Not Reportable 08/09/19 16:20 Not Reportable 08/09/19 16:20 Not Reportable 08/09/19 16:20 Not Reportable 08/09/19 16:20 Not Reportable 08/09/19 16:20 Not Reportable 08/09/19 16:20 Not Reportable 08/09/19 16:20 Not Reportable 08/09/19 16:20 Not Reportable 08/09/19 16:20 Not Reportable 08/09/19 16:20 Acanthocytes (Spur) Not Reportable 08/09/19 16:20 Rouleaux Not Reportable 08/09/19 16:20 Not Reportable 08/09/19 16:20 Not Reportable 08/09/19 16:20 Not Reportable 08/09/19 16:20 Not Reportable 08/09/19 16:20 Hem Pathologist Commnt No 08/09/19 16:20 PT 12.8 Sec. (12.2-14.9) 08/09/19 16:20 INR 0.99 (0.87-1.13) 08/09/19 16:20 APTT 28.5 Sec. (24.2-36.6) 08/09/19 16:20 15.7 Sec. (15.1-19.6) 08/09/19 16:20 Sodium 142 mmol/L (137-145) 08/10/19 04:36 Potassium 4.5 mmol/L (3.6-5.0) D 08/10/19 04:36 Chloride 103.7 mmol/L (98-107) 08/10/19 04:36 Carbon Dioxide 27 mmol/L (22-30) 08/10/19 04:36 16 mmol/L 08/10/19 04:36 BUN 13 mg/dL (7-17) 08/10/19 04:36 1.0 mg/dL (0.7-1.2) 08/10/19 04:36 Estimated GFR > 60 ml/min 08/10/19 04:36 13 % 08/10/19 04:36 Glucose 109 mg/dL (65-100) H 08/10/19 04:36 POC Glucose 312 (70-105) H 08/12/19 11:40 8.0 % (4-6) H 08/10/19 04:36 Calcium 9.1 mg/dL (8.4-10.2) 08/10/19 04:36 Magnesium 1.80 mg/dL (1.7-2.3) 08/10/19 13:15 0.40 mg/dL (0.1-1.2) 08/10/19 04:36 < 0.2 mg/dL (0-0.2) 08/09/19 16:20 0.1 mg/dL 08/09/19 16:20 AST 13 units/L (5-40) 08/10/19 04:36 ALT 12 units/L (7-56) 08/10/19 04:36 69 units/L (35-129) 08/10/19 04:36 33 units/L (30-135) 08/09/19 16:20 CK-MB (CK-2) 1.9 ng/mL (0.0-4.0) 08/09/19 16:20 CK-MB (CK-2) Rel Index 5.7 (0-4) H 08/09/19 16:20 < 0.010 ng/mL (0.00-0.029) 08/10/19 04:36 6.8 g/dL (6.3-8.2) 08/10/19 04:36 3.6 g/dL (3.9-5) L 08/10/19 04:36 1.1 % 08/10/19 04:36 Triglycerides 100 mg/dL (2-149) 08/10/19 04:36 Cholesterol 102 mg/dL (50-199) 08/10/19 04:36 62 mg/dL (50-130) 08/10/19 04:36 31 mg/dL (40-59) L 08/10/19 04:36 3.29 % 08/10/19 04:36 TSH 2.240 mlU/mL (0.270-4.200) 08/10/19 13:15 Free T4 1.28 ng/dL (0.76-1.46) 08/10/19 13:15 Active Medications - Current Medications Current Medications: Generic Name Dose Route Start Last Admin Trade Name Freq PRN Reason Stop Dose Admin Acetaminophen 650 mg 08/09/19 19:57 Tylenol PO Q4H PRN Pain, Mild (1-3) Acetaminophen/Hydrocodone Bitart 2 each 08/09/19 19:57 08/11/19 22:33 [place] 5/325 PO 2 each Q6H PRN Administration Pain, Moderate (4-6) Apixaban 5 mg 08/12/19 22:00 Eliquis PO Q12HR MIRIAM Protocol Atorvastatin Calcium 40 mg 08/09/19 22:00 08/11/19 22:34 Lipitor PO 40 mg QHS MIRIAM Administration Bisacodyl 10 mg 08/09/19 19:57 Dulcolax MA QDAY PRN Constipation Dextrose 50 ml 08/09/19 20:33 D50w (25gm) Syringe IV PRN PRN Hypoglycemia Dextrose 50 ml 08/12/19 13:15 D50w (25gm) Syringe IV PRN PRN Hypoglycemia Docusate Sodium 100 mg 08/09/19 22:00 08/12/19 09:39 Colace PO 100 mg BID MIRIAM Administration Hydromorphone HCl 0.5 mg 08/09/19 19:57 Dilaudid IV Q3H PRN Pain , Severe (7-10) Insulin Human Lispro 0 unit 08/12/19 16:30 Humalog SUB-Q ACHS [facility] Protocol Insulin Human Regular 0 units 08/10/19 00:00 08/12/19 12:20 Humulin R SUB-Q 1 units Q6HR MIRIAM Administration Protocol Labetalol HCl 10 mg 08/09/19 19:57 Normodyne IV Q5MIN PRN maintain SBP 180or<,DBP 105or< Magnesium Hydroxide 30 ml 08/09/19 19:57 Milk Of Magnesia PO Q4H PRN Constipation Metoclopramide HCl 10 mg 08/09/19 19:57 Reglan PO Q6H PRN Nausea And Vomiting Metoprolol Tartrate 25 mg 08/12/19 12:00 08/12/19 12:23 Lopressor PO 25 mg BID MIRIAM Administration Ondansetron HCl 4 mg 08/09/19 19:57 Zofran IV Q8H PRN Nausea And Vomiting Promethazine HCl 25 mg 08/09/19 19:57 Phenergan MA Q6H PRN Nausea And Vomiting Sodium Chloride 10 ml 08/09/19 19:57 08/10/19 21:47 Sodium Chloride Flush Syringe 10 Ml IV 10 ml PRN PRN Administration LINE FLUSH Nutrition/Malnutrition Assess - Dietary Evaluation Nutrition/Malnutrition Findings: Nutrition Notes Start: 08/10/19 10:55 Freq: Status: Active Protocol: Document 08/10/19 10:55 LM (Rec: 08/10/19 11:11 LM [id number]) Nutrition Notes Need for Assessment generated from: MD Order,Education Initial or Follow up Assessment Current Diagnosis Diabetes,Hypertension,Stroke Other Pertinent Diagnosis A fib, L side weakness/facial droop Current Diet Cardiac diet Labs/Tests Na 142 BG 109 Pertinent Medications Reviewed Height 5 ft 5 in Weight 95.9 kg [place] Body Weight (kg) 56.81 BMI 35.2 Weight Status Obese Subjective/Other Information Md consult for diet education. Discussed CVA and DM nutrition with pt. Pt stated she does not always eat well at home and that her weight fluctuates. Pt stated her UBW is in the 200s. Pt stated that she did not get a breakfast this AM. Burn Absent Trauma Absent Minimum of two criteria No #2 Nutrition Diagnosis Food and nutrition-related knowledge deficit Etiology No prior CVA and DM nutrition related education As Evidenced by Signs and Symptoms Pt needing CVA and DM nutrition education #1 Nutrition Diagnosis Predicted suboptimal energy intake Etiology old age, chronic illness As Evidenced by Signs and Symptoms Pt statement of not eating well at home and fluctuating weight Is patient on ventilator? No Is Patient Ambulatory and/or Out of Bed Yes REE-(Clare-St. Jeor-ambulatory/OOB) [ 1891.344 [id number]] Kcal/Kg value to use for calculation 16 Approximate Energy Requirements Using 1534 kcal/Kg Calculation Used for Recommendations Kcal/kg Additional Notes Protein: 76-91g (1-1.2g/kg AdBW 76 kg) Fluid: 1 ml/kcal Nutrition Intervention Change Diet Order: Continue cardiac Teaching Recipient Patient Learning Readiness Good Teaching Methods Discussion,Handout Education Handouts Provided Stroke Nutrition Therapy and Carb Counting for People with Diabetes Barriers to Learning No Barriers RD phone number provided Yes Patient aware of follow up options Yes Goal #1 Meet at least 75% of energy and protein needs Goal #2 Adherence to CVA diet Anticipated Discharge Needs: Cardiac/consistent CHO Follow-Up By: 08/14/19 Additional Comments F/U for PO intakes
[2019-08-12] MEDS: HumaLOG SUB-Q SCH ×2 (17:13→23:02)
[2019-08-12] MEDS: ELIQUIS PO SCH (22:47)
[2019-08-13 04:55] LABS: Hematocrit 45.8 % (30.3-42.9); Hemoglobin 14.8 gm/dl (10.1-14.3); Mean Corpuscular HGB Conc 32 % (30-34); Mean Corpuscular Volume 87 fl (79-97); Platelet Count 274 K/mm3 (140-440); Red Blood Count 5.26 M/mm3 (3.65-5.03); Red Cell Distribution Width 17.7 % (13.2-15.2)
[2019-08-13 05:24] LABS: Calcium 8.6 mg/dL (8.4-10.2)
[2019-08-13] MEDS: HumaLOG SUB-Q SCH ×4 (09:40→21:51)
[2019-08-13] MEDS: LOPRESSOR PO SCH ×2 (09:41→21:50)
[2019-08-13] MEDS: ELIQUIS PO SCH ×2 (09:41→21:49)
[2019-08-13] MEDS: COLACE PO SCH ×2 (09:41→21:49)
--- NOTE | 2019-08-13 10:09 | Progress Note ---
Assessment and Plan The patient's cardiac status is improving. Will increase metoprolol to 50 mg BID. She has been cleared by neurology for OAC, so Eliquis initiated on 08/12. The patient has been seen in conjunction with Dr. Jones, who agrees with the assessment and plan of care. - Patient Problems (1) Acute CVA (cerebrovascular accident) Current Visit: Yes Status: Acute (2) Atrial fibrillation with RVR Current Visit: Yes Status: Acute (3) Diabetes Current Visit: Yes Status: Chronic (4) HTN (hypertension) Current Visit: Yes Status: Chronic Subjective Date of service: 08/13/19 Principal diagnosis: CVA; AFib Interval history: The patient is sitting up in bed eating breakfast. She has no cardiac complaints. Afib with RVR into 130s around 0530 noted on telemetry, events transient. She is currently in CVR. Objective Last Vital Signs Temp 97.4 F L 08/13/19 05:14 Pulse 65 08/13/19 05:14 Resp 20 08/13/19 05:14 BP 130/68 08/13/19 05:14 Pulse Ox 97 08/13/19 05:14 - Physical Examination General: No Apparent Distress HEENT: Positive: PERRL, Normocephaly, Mucus Membranes Moist Neck: Positive: neck supple, trachea midline Cardiac: Positive: irregularly irregular Lungs: Positive: Normal Exam Neuro: Positive: Grossly Intact Abdomen: Positive: Unremarkable. Negative: Tender /Rectal: Other (deferred) Skin: Positive: Clear. Negative: Rash Musculoskeletal: No Pain Extremities: Present: normal. Absent: edema - Labs and Meds CBC 08/13/19 Range/Units 04:41 WBC 12.5 H (4.5-11.0) K/mm3 RBC 5.26 H (3.65-5.03) M/mm3 Hgb 14.8 H (10.1-14.3) gm/dl Hct 45.8 H (30.3-42.9) % Plt Count 274 (140-440) K/mm3 Comprehensive Metabolic Panel 08/13/19 Range/Units 04:41 Sodium 139 (137-145) mmol/L Potassium 5.2 H (3.6-5.0) mmol/L Chloride 98.5 (98-107) mmol/L Carbon Dioxide 31 H (22-30) mmol/L BUN 22 H (7-17) mg/dL Creatinine 1.3 H (0.7-1.2) mg/dL Glucose 255 H (65-100) mg/dL Calcium 8.6 (8.4-10.2) mg/dL - Imaging and Cardiology EKG: report reviewed, image reviewed Echo: report reviewed (08/09/19: EF 55-60, trace TR, trace MR, trivial pericardial effusion )
--- NOTE | 2019-08-13 10:52 | Progress Note ---
Assessment and Plan Assessment and plan: Patient is a 74-year-old female with history of hypertension and diabetes who presents to [facility] ED via EMS with left sided weakness and left facial droop. Per the chart, patient was in the kitchen cooking earlier that day and developed an acute onset of left sided weaknes. In the ED she had left sided facial droop as well. She was also hypoglycemic in the 50's. She was given tPA around 1700 on 08/09/19. She has no residual deficits this am. She did develop afib throughout the night. * CT head without contrast IMPRESSION: No acute intracranial abnormality. 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 * CTA neck IMPRESSION: There is no CTA evidence of significant stenosis involving the cervical carotid or vertebral arteries by NASCET criteria. * MRI brain without contrast IMPRESSION: 1. There are acute/subacute infarcts along the posterior right basal ganglia, periventricular region and posterior temporal lobe as detailed above. Acute CVA s/p tPA: treat with statin and Eliquis Atrial fibrillation with RVR: re-started IV Amiodarone drip, Cardiology is follo wing Hypertension, permissive: monitor closely DM type 2, HgbA1C 8.0: POC BG monitoring, SSI coverage prn Hyperkalemia, 5.8 on admission: Received Kayexalate and calcium gluconate, Continue to monitor electrolytes DVT PPX: SCD's Disposition: continue inpatient care, once AFib is controlled then d/c home. Amiodarone iv drip stopped this morning, added BBlocker. Hopefully rate stays controlled and she can be discharge tomorrow. History Interval history: Patient was seen and examined. Follow-up on current diagnosis of CVA and afib. No overnight events reported to me. Patient denies any chest pain, shortness breath, nausea/vomiting or severe headaches. Imaging, nursing note, chart, labs and old chart reviewed. Discussed with patient. She really wants to go home WILLIAM Hospitalist Physical - Physical exam Narrative exam: Gen: WDWN, NAD, Awake, Alert, Orientated HEENT: NCAT, EOMI, PERRL, OP Clear Neck: supple, no adenopathy, no thyromegaly, no JVD CVS/Heart: RRR, normal S1S2, pulses present bilaterally Chest/Lungs: CTA B, Symmetrical chest expansion, good air entry bilaterally GI/Abdomen: soft, NTND, good bowel sounds, no guarding or rebound /Bladder: no suprapubic tenderness, no CVA or paraspinal tenderness Extermity/Skin: no c/c/e, no obvious rash MSK: FROM x 4 Neuro: CN 2-12 grossly intact, mild aphasia, left drift, no new focal deficits Psych: calm - Constitutional Vitals: Temp Pulse Resp BP Pulse Ox 97.4 F L 65 20 130/68 97 08/13/19 05:14 08/13/19 05:14 08/13/19 05:14 08/13/19 05:14 08/13/19 05:14 General appearance: Present: no acute distress Results - Labs CBC & Chem 7: 08/13/19 04:41 08/13/19 04:41 Labs: Laboratory Last Values WBC 12.5 K/mm3 (4.5-11.0) H 08/13/19 04:41 RBC 5.26 M/mm3 (3.65-5.03) H 08/13/19 04:41 Hgb 14.8 gm/dl (10.1-14.3) H 08/13/19 04:41 Hct 45.8 % (30.3-42.9) H 08/13/19 04:41 MCV 87 fl (79-97) 08/13/19 04:41 MCH 28 pg (28-32) 08/13/19 04:41 MCHC 32 % (30-34) 08/13/19 04:41 RDW 17.7 % (13.2-15.2) H 08/13/19 04:41 Plt Count 274 K/mm3 (140-440) 08/13/19 04:41 Lymph % (Auto) 24.2 % (13.4-35.0) 08/10/19 04:36 Lares % (Auto) 4.9 % (0.0-7.3) 08/10/19 04:36 Eos % (Auto) 2.3 % (0.0-4.3) 08/10/19 04:36 Baso % (Auto) 1.4 % (0.0-1.8) 08/10/19 04:36 Lymph # 2.9 K/mm3 (1.2-5.4) 08/10/19 04:36 Lares # 0.6 K/mm3 (0.0-0.8) 08/10/19 04:36 Eos # 0.3 K/mm3 (0.0-0.4) 08/10/19 04:36 Baso # 0.2 K/mm3 (0.0-0.1) H 08/10/19 04:36 Add Manual Diff Complete 08/09/19 16:20 Total Counted 100 08/09/19 16:20 Seg Neutrophils % 67.2 % (40.0-70.0) 08/10/19 04:36 Seg Neuts % (Manual) 79.0 % (40.0-70.0) H 08/09/19 16:20 0 % 08/09/19 16:20 13.0 % (13.4-35.0) L 08/09/19 16:20 Reactive Lymphs % (Man) 0 % 08/09/19 16:20 3.0 % (0.0-7.3) 08/09/19 16:20 5.0 % (0.0-4.3) H 08/09/19 16:20 0 % (0.0-1.8) 08/09/19 16:20 0 % 08/09/19 16:20 0 % 08/09/19 16:20 0 % 08/09/19 16:20 0 % 08/09/19 16:20 Nucleated RBC % Not Reportable 08/09/19 16:20 Seg Neutrophils # 8.0 K/mm3 (1.8-7.7) H 08/10/19 04:36 Seg Neutrophils # Man 8.0 K/mm3 (1.8-7.7) H 08/09/19 16:20 Band Neutrophils # 0.0 K/mm3 08/09/19 16:20 1.3 K/mm3 (1.2-5.4) 08/09/19 16:20 Abs React Lymphs (Man) 0.0 K/mm3 08/09/19 16:20 0.3 K/mm3 (0.0-0.8) 08/09/19 16:20 0.5 K/mm3 (0.0-0.4) H 08/09/19 16:20 0.0 K/mm3 (0.0-0.1) 08/09/19 16:20 0.0 K/mm3 08/09/19 16:20 0.0 K/mm3 08/09/19 16:20 0.0 K/mm3 08/09/19 16:20 Blast Cells # 0.0 K/mm3 08/09/19 16:20 WBC Morphology Not Reportable 08/09/19 16:20 Hypersegmented Neuts Not Reportable 08/09/19 16:20 Hyposegmented Neuts Not Reportable 08/09/19 16:20 Hypogranular Neuts Not Reportable 08/09/19 16:20 Not Reportable 08/09/19 16:20 Not Reportable 08/09/19 16:20 Not Reportable 08/09/19 16:20 Not Reportable 08/09/19 16:20 Not Reportable 08/09/19 16:20 Not Reportable 08/09/19 16:20 Consistent w auto 08/09/19 16:20 Not Reportable 08/09/19 16:20 Plt Clumps, EDTA Not Reportable 08/09/19 16:20 Not Reportable 08/09/19 16:20 Not Reportable 08/09/19 16:20 Not Reportable 08/09/19 16:20 Plt Morphology Comment Not Reportable 08/09/19 16:20 RBC Morphology Not Reportable 08/09/19 16:20 Dimorphic RBCs Not Reportable 08/09/19 16:20 Not Reportable 08/09/19 16:20 Not Reportable 08/09/19 16:20 Not Reportable 08/09/19 16:20 1+ 08/09/19 16:20 Not Reportable 08/09/19 16:20 Not Reportable 08/09/19 16:20 Not Reportable 08/09/19 16:20 Not Reportable 08/09/19 16:20 Not Reportable 08/09/19 16:20 Not Reportable 08/09/19 16:20 Not Reportable 08/09/19 16:20 Not Reportable 08/09/19 16:20 Not Reportable 08/09/19 16:20 Not Reportable 08/09/19 16:20 Not Reportable 08/09/19 16:20 Not Reportable 08/09/19 16:20 Not Reportable 09/11/19 16:20 Not Reportable 08/09/19 16:20 Not Reportable 08/09/19 16:20 Acanthocytes (Spur) Not Reportable 08/09/19 16:20 Rouleaux Not Reportable 08/09/19 16:20 Not Reportable 08/09/19 16:20 Not Reportable 08/09/19 16:20 Not Reportable 08/09/19 16:20 Not Reportable 08/09/19 16:20 Hem Pathologist Commnt No 08/09/19 16:20 PT 12.8 Sec. (12.2-14.9) 08/09/19 16:20 INR 0.99 (0.87-1.13) 08/09/19 16:20 APTT 28.5 Sec. (24.2-36.6) 08/09/19 16:20 15.7 Sec. (15.1-19.6) 08/09/19 16:20 Sodium 139 mmol/L (137-145) 08/13/19 04:41 Potassium 5.2 mmol/L (3.6-5.0) H 08/13/19 04:41 Chloride 98.5 mmol/L (98-107) 08/13/19 04:41 Carbon Dioxide 31 mmol/L (22-30) H 08/13/19 04:41 15 mmol/L 08/13/19 04:41 BUN 22 mg/dL (7-17) H 08/13/19 04:41 1.3 mg/dL (0.7-1.2) H 08/13/19 04:41 Estimated GFR 48 ml/min 08/13/19 04:41 17 % 08/13/19 04:41 Glucose 255 mg/dL (65-100) H 08/13/19 04:41 POC Glucose 245 (70-105) H 08/13/19 07:31 8.0 % (4-6) H 08/10/19 04:36 Calcium 8.6 mg/dL (8.4-10.2) 08/13/19 04:41 Magnesium 2.00 mg/dL (1.7-2.3) 08/13/19 04:41 0.40 mg/dL (0.1-1.2) 08/10/19 04:36 < 0.2 mg/dL (0-0.2) 08/09/19 16:20 0.1 mg/dL 08/09/19 16:20 AST 13 units/L (5-40) 08/10/19 04:36 ALT 12 units/L (7-56) 08/10/19 04:36 69 units/L (35-129) 08/10/19 04:36 33 units/L (30-135) 08/09/19 16:20 CK-MB (CK-2) 1.9 ng/mL (0.0-4.0) 08/09/19 16:20 CK-MB (CK-2) Rel Index 5.7 (0-4) H 08/09/19 16:20 < 0.010 ng/mL (0.00-0.029) 08/10/19 04:36 6.8 g/dL (6.3-8.2) 08/10/19 04:36 3.6 g/dL (3.9-5) L 08/10/19 04:36 1.1 % 08/10/19 04:36 Triglycerides 100 mg/dL (2-149) 08/10/19 04:36 Cholesterol 102 mg/dL (50-199) 08/10/19 04:36 62 mg/dL (50-130) 08/10/19 04:36 31 mg/dL (40-59) L 08/10/19 04:36 3.29 % 08/10/19 04:36 TSH 2.240 mlU/mL (0.270-4.200) 08/10/19 13:15 Free T4 1.28 ng/dL (0.76-1.46) 08/10/19 13:15 Active Medications - Current Medications Current Medications: Generic Name Dose Route Start Last Admin Trade Name Freq PRN Reason Stop Dose Admin Acetaminophen 650 mg 08/09/19 19:57 Tylenol PO Q4H PRN Pain, Mild (1-3) Acetaminophen/Hydrocodone Bitart 2 each 08/09/19 19:57 08/11/19 22:33 [place] 5/325 PO 2 each Q6H PRN Administration Pain, Moderate (4-6) Apixaban 5 mg 08/12/19 22:00 08/13/19 09:41 Eliquis PO 5 mg Q12HR MIRIAM Administration Protocol Atorvastatin Calcium 40 mg 08/09/19 22:00 08/12/19 22:47 Lipitor PO 40 mg QHS MIRIAM Administration Bisacodyl 10 mg 08/09/19 19:57 Dulcolax NV QDAY PRN Constipation Dextrose 50 ml 08/12/19 13:15 D50w (25gm) Syringe IV PRN PRN Hypoglycemia Docusate Sodium 100 mg 08/09/19 22:00 08/13/19 09:41 Colace PO 100 mg BID MIRIAM Administration Hydromorphone HCl 0.5 mg 08/09/19 19:57 Dilaudid IV Q3H PRN Pain , Severe (7-10) Insulin Human Lispro 0 unit 08/12/19 16:30 08/13/19 09:40 Humalog SUB-Q 3 unit ACHS MIRIAM Administration Protocol Labetalol HCl 10 mg 08/09/19 19:57 Normodyne IV Q5MIN PRN maintain SBP 180or<,DBP 105or< Magnesium Hydroxide 30 ml 08/09/19 19:57 Milk Of Magnesia PO Q4H PRN Constipation Metoclopramide HCl 10 mg 08/09/19 19:57 Reglan PO Q6H PRN Nausea And Vomiting Metoprolol Tartrate 50 mg 08/13/19 22:00 Lopressor PO BID MIRIAM Ondansetron HCl 4 mg 08/09/19 19:57 Zofran IV Q8H PRN Nausea And Vomiting Promethazine HCl 25 mg 08/09/19 19:57 Phenergan NV Q6H PRN Nausea And Vomiting Sodium Chloride 10 ml 08/09/19 19:57 08/10/19 21:47 Sodium Chloride Flush Syringe 10 Ml IV 10 ml PRN PRN Administration LINE FLUSH Nutrition/Malnutrition Assess - Dietary Evaluation Nutrition/Malnutrition Findings: Nutrition Notes Start: 08/10/19 10:55 Freq: Status: Active Protocol: Document 08/10/19 10:55 LM (Rec: 08/10/19 11:11 LM [id number]) Nutrition Notes Need for Assessment generated from: MD Order,Education Initial or Follow up Assessment Current Diagnosis Diabetes,Hypertension,Stroke Other Pertinent Diagnosis A fib, L side weakness/facial droop Current Diet Cardiac diet Labs/Tests Na 142 BG 109 Pertinent Medications Reviewed Height 5 ft 5 in Weight 95.9 kg [place] Body Weight (kg) 56.81 BMI 35.2 Weight Status Obese Subjective/Other Information Md consult for diet education. Discussed CVA and DM nutrition with pt. Pt stated she does not always eat well at home and that her weight fluctuates. Pt stated her UBW is in the 200s. Pt stated that she did not get a breakfast this AM. Burn Absent Trauma Absent Minimum of two criteria No #2 Nutrition Diagnosis Food and nutrition-related knowledge deficit Etiology No prior CVA and DM nutrition related education As Evidenced by Signs and Symptoms Pt needing CVA and DM nutrition education #1 Nutrition Diagnosis Predicted suboptimal energy intake Etiology old age, chronic illness As Evidenced by Signs and Symptoms Pt statement of not eating well at home and fluctuating weight Is patient on ventilator? No Is Patient Ambulatory and/or Out of Bed Yes REE-([place]. Jeor-ambulatory/OOB) [ 1891.344 [id number]] Kcal/Kg value to use for calculation 16 Approximate Energy Requirements Using 1534 kcal/Kg Calculation Used for Recommendations Kcal/kg Additional Notes Protein: 76-91g (1-1.2g/kg AdBW 76 kg) Fluid: 1 ml/kcal Nutrition Intervention Change Diet Order: Continue cardiac Teaching Recipient Patient Learning Readiness Good Teaching Methods Discussion,Handout Education Handouts Provided Stroke Nutrition Therapy and Carb Counting for People with Diabetes Barriers to Learning No Barriers RD phone number provided Yes Patient aware of follow up options Yes Goal #1 Meet at least 75% of energy and protein needs Goal #2 Adherence to CVA diet Anticipated Discharge Needs: Cardiac/consistent CHO Follow-Up By: 08/14/19 Additional Comments F/U for PO intakes
[2019-08-13] MEDS: SODIUM CHLORIDE FLUSH SYRINGE 10 ML IV PRN (21:50)
[2019-08-14 06:30] LABS: Hematocrit 42.9 % (30.3-42.9); Hemoglobin 14.2 gm/dl (10.1-14.3); Mean Corpuscular HGB Conc 33 % (30-34); Mean Corpuscular Volume 86 fl (79-97); Platelet Count 259 K/mm3 (140-440); Red Cell Distribution Width 17.9 % (13.2-15.2)
[2019-08-14 06:59] LABS: Calcium 8.7 mg/dL (8.4-10.2)
[2019-08-14] MEDS: HumaLOG SUB-Q SCH ×4 (08:48→21:49)
[2019-08-14] MEDS: LOPRESSOR PO SCH ×2 (10:27→21:48)
[2019-08-14] MEDS: ELIQUIS PO SCH ×2 (10:27→21:48)
[2019-08-14] MEDS: COLACE PO SCH ×2 (10:27→21:48)
--- NOTE | 2019-08-14 10:35 | Event Note ---
Date: 08/14/19 Dr. Palencia notified me that Sergio is his patient and family notified him today so I transferred patient care to him today.
--- NOTE | 2019-08-14 14:37 | Progress Note ---
Assessment and Plan Patient is a 74-year-old female with history of hypertension and diabetes who presents to [facility] ED via EMS with left sided weakness and left facial droop. Per the chart, patient was in the kitchen cooking earlier that day and developed an acute onset of left sided weaknes. In the ED she had left sided facial droop as well. She was also hypoglycemic in the 50's. She was given tPA around 1700 on 08/09/19. She has no residual deficits this am. She did develop afib throughout the night. * CT head without contrast IMPRESSION: No acute intracranial abnormality. * CTA head IMPRESSION: There is developmental origin of the right COLLECTIONS REPRESENTATIVE and hypoplasia of the vertebral basilar system. * CTA neck IMPRESSION: There is no CTA evidence of significant stenosis involving the cervical carotid or vertebral arteries by NASCET criteria. * MRI brain without contrast IMPRESSION: 1. There are acute/subacute infarcts along the posterior right basal ganglia, periventricular region and posterior temporal lobe as detailed above. Acute CVA s/p tPA: treat with statin and Eliquis Atrial fibrillation with RVR: re-started IV Amiodarone drip, Cardiology is following Hypertension, permissive: monitor closely DM type 2, HgbA1C 8.0: POC BG monitoring, SSI coverage prn Hyperkalemia, 5.8 on admission: Received Kayexalate and calcium gluconate, Continue to monitor electrolytes DVT PPX: SCD's Leumkocytosis: Trend Disposition: continue inpatient care, once AFib is controlled then d/c home. Amiodarone iv drip stopped this morning, added BBlocker. Hopefully rate stays controlled and she can be discharge tomorrow. Subjective Date of service: 08/14/19 Principal diagnosis: CVA; AFib Interval history: Slurred speech is better . No liberalizing weakness Objective - Exam Narrative Exam: Constitutional: Obese. Well-nourished well-developed. In no distress Head: Normocephalic atraumatic Eyes: Pupils are equal round and reactive to light Nose: No enlarged turbinates, no septal deviation. Mouth: Moist mucous membranes. Neck: Supple no thyromegaly. No bruit. No JVD Heart: Regular rate and rhythm, S1-S2 normal. No rubs murmurs or gallop Lungs: Clear to auscultation bilaterally. no rales or rhonchi Abdomen: Soft, nontender. Bowel sound are present. Extremities: No edema, no cyanosis, no clubbing. Neuro: Alert oriented Oriented x3. No focal sensory or motor deficit. Skin: No rashes or hyperpigmented spots Musculoskeletal system: No joint pain or swelling Hematological: No petechia or subcutanous hemorrhages. Immunological: No multiple septic spots on the skin Lymphatic: No generalized lymphadenopathy Psychiatry: Euthymic. Calm. - Constitutional Vitals: Vital Signs - 12hr 08/14/19 08/14/19 08/14/19 03:32 04:42 07:51 Temperature 98.0 F 97.6 F Pulse Rate 66 64 68 Respiratory 18 18 Rate Blood Pressure 144/47 144/59 O2 Sat by Pulse 94 97 Oximetry 08/14/19 08/14/19 11:55 12:36 Temperature 98.3 F Pulse Rate 63 Respiratory 18 Rate Blood Pressure 126/44 O2 Sat by Pulse 98 95 Oximetry - Labs CBC & Chem 7: 08/14/19 05:07 08/14/19 05:07 Labs: Abnormal lab results 08/13/19 08/13/19 08/14/19 Range/Units 16:33 20:16 05:07 WBC 11.2 H (4.5-11.0) K/mm3 RDW 17.9 H (13.2-15.2) % BUN (7-17) mg/dL Glucose (65-100) mg/dL POC Glucose 192 H 234 H (70-105) 08/14/19 08/14/19 08/14/19 Range/Units 05:07 07:51 11:22 WBC (4.5-11.0) K/mm3 RDW (13.2-15.2) % BUN 25 H (7-17) mg/dL Glucose 232 H (65-100) mg/dL POC Glucose 246 H 257 H (70-105)
--- NOTE | 2019-08-14 14:47 | Progress Note ---
Assessment and Plan Currently stable cardiac status. Pt remains in SR. Cont Eliquis and lopressor. Pt may discharge home from cardiology standpoint. Recommend follow up in our office with Dr. Leoncio Rosario within 1-2 weeks of hospital discharge ([phone]). The patient has been seen in conjunction with Dr. Hicks who agrees with the assessment and plan of care. - Patient Problems (1) Acute CVA (cerebrovascular accident) Current Visit: Yes Status: Acute (2) Atrial fibrillation with RVR Current Visit: Yes Status: Resolved (3) HTN (hypertension) Current Visit: Yes Status: Chronic (4) Diabetes Current Visit: Yes Status: Chronic Subjective Date of service: 08/14/19 Principal diagnosis: CVA; AFib Interval history: pt resting up in chair, feeling well. in SR on tele. Objective Last Vital Signs Temp 98.3 F 08/14/19 12:36 Pulse 63 08/14/19 12:36 Resp 18 08/14/19 12:36 BP 126/44 08/14/19 12:36 Pulse Ox 95 08/14/19 12:36 - Physical Examination General: No Apparent Distress HEENT: Positive: PERRL, Normocephaly, Mucus Membranes Moist Neck: Positive: neck supple, trachea midline Cardiac: Positive: Reg Rate and Rhythm, S1/S2 Lungs: Positive: Decreased Breath Sounds Neuro: Positive: Grossly Intact Abdomen: Positive: Unremarkable. Negative: Tender /Rectal: Other (deferred) Skin: Positive: Clear. Negative: Rash Musculoskeletal: No Pain Extremities: Present: normal. Absent: edema - Labs and Meds CBC 08/14/19 Range/Units 05:07 WBC 11.2 H (4.5-11.0) K/mm3 RBC 5.00 (3.65-5.03) M/mm3 Hgb 14.2 (10.1-14.3) gm/dl Hct 42.9 (30.3-42.9) % Plt Count 259 (140-440) K/mm3 Comprehensive Metabolic Panel 08/14/19 Range/Units 05:07 Sodium 142 (137-145) mmol/L Potassium 4.8 (3.6-5.0) mmol/L Chloride 100.3 (98-107) mmol/L Carbon Dioxide 29 (22-30) mmol/L BUN 25 H (7-17) mg/dL Creatinine 1.1 (0.7-1.2) mg/dL Glucose 232 H (65-100) mg/dL Calcium 8.7 (8.4-10.2) mg/dL - Imaging and Cardiology EKG: report reviewed, image reviewed Echo: report reviewed (08/09/19: EF 55-60, trace TR, trace MR, trivial pericardial effusion )
[2019-08-14] MEDS: SODIUM CHLORIDE FLUSH SYRINGE 10 ML IV PRN (21:49)
[2019-08-14] MEDS: JARDIANCE 10 MG PO SCH (22:44)
[2019-08-15 07:43] VITALS: BP 135/43
[2019-08-15] MEDS: JARDIANCE 10 MG PO SCH (09:20)
[2019-08-15] MEDS: HumaLOG SUB-Q SCH (09:20)
[2019-08-15] MEDS: COLACE PO SCH (09:21)
[2019-08-15] MEDS: ELIQUIS PO SCH (09:21)
[2019-08-15] MEDS: LOPRESSOR PO SCH (09:23)
--- NOTE | 2019-08-15 09:56 | Discharge Summary ---
Providers - Providers Date of Admission: 08/09/19 19:57 Date of discharge: 08/15/19 Attending physician: CYN WATSON 08/09/19 Consult to Physician [CONS] Routine Comment: Consulting Provider: JACOB SOLIZ Physician Instructions: Reason For Exam: CVA s/p TPA 08/09/19 19:57 Consult to Case Management [CONS] Routine Services Needed at Discharge: Physical Therapy Notified:: cm notified Consult to Dietitian/Nutrition [CONS] Routine Physician Instructions: Reason For Exam: Reason for Consult: Nutrition Recommendations Reason for Consult: Diet education Occupational Therapy Evaluate and Treat [CONS] Routine Comment: Reason For Exam: Neuro deficits Physical Therapy Evaluation and Treat [CONS] Routine Comment: Reason For Exam: Neuro deficits 08/10/19 04:11 Consult to Physician [CONS] Routine Comment: Consulting Provider: KENDALL PADGETT Physician Instructions: Reason For Exam: new onset afib, s/p cva rec tPA Primary care physician: CYN WATSON Hospitalization Reason for admission: Acute CVA, Afib with RVR, T2DM Condition: Stable Pertinent studies: CT head, MRI that showed acute right post basal ganglia infarct, ECHO Procedures: none Hospital course: 74-year-old female with history of hypertension and diabetes who presents to [facility] ED via EMS with complaints of left sided weakness and left facial droop. Family is present at bedside and has assisted with providing history. According to patient's family patient was in the kitchen earlier today cooking, when suddenly became weak on the left side. She was noted to have left sided facial droop as well. upon EMS arrival to pt'e home she was found to be hypoglycemic with BG of 52. She was given oral glucose (by EMS) and was responsive with BG of 72. Upon arrival to out facility she was noted to have left facial droop, left upper and lower extremity weakness. CT Head was negative. Teleneurology () was consulted and evaluated pt. Per Dr. Irizarry's recommendations pt received tPA in ED. left sided weakness and slurred speech resolve MRI confirme right basal ganglia infarct. Stroke protocl commence on admission. Symptom resolved with no further neuro deficit. Pt had afib with RVR that was treated with cardiology on board ECHO showed EF of 55-60 % with no intramural thrombus. Rate controlled an she id being dechraed on Eliquis to f/u with PCP in 5 day and cardiology ion 7 days Disposition: DC-01 TO HOME OR SELFCARE Time spent for discharge: 40 mins - Discharge Diagnoses (1) Acute CVA (cerebrovascular accident) Status: Acute (2) Diabetes Status: Chronic (3) HTN (hypertension) Status: Chronic (4) Atrial fibrillation with RVR Status: Resolved Core Measure Documentation - Palliative Care Palliative Care/ Comfort Measures: Not Applicable - Core Measures Any of the following diagnoses?: stroke - Heart Failure Discharge Requirements MANE/ARB for LVSD if EF <40%: No Beta doron at discharge: Yes - Stroke Discharge Requirements Statin for LDL = or >70 mg/dl on DC: No Anticoag for atrial fib/atrial flutter: Yes Antithrombotic for ischemic stroke: Yes Exam - Physical Exam Narrative exam: Constitutional: Obese. Well-nourished well-developed. In no distress Head: Normocephalic atraumatic Eyes: Pupils are equal round and reactive to light Nose: No enlarged turbinates, no septal deviation. Mouth: Moist mucous membranes. Neck: Supple no thyromegaly. No bruit. No JVD Heart: Regular rate and rhythm, S1-S2 normal. No rubs murmurs or gallop Lungs: Clear to auscultation bilaterally. no rales or rhonchi Abdomen: Soft, nontender. Bowel sound are present. Extremities: No edema, no cyanosis, no clubbing. Neuro: Alert oriented Oriented x3. No focal sensory or motor deficit. Skin: No rashes or hyperpigmented spots Musculoskeletal system: No joint pain or swelling Hematological: No petechia or subcutanous hemorrhages. Immunological: No multiple septic spots on the skin Lymphatic: No generalized lymphadenopathy Psychiatry: Euthymic. Calm. - Constitutional Vitals: Temp Pulse Resp BP Pulse Ox 98.0 F 67 20 135/43 95 08/15/19 07:20 08/15/19 09:23 08/15/19 09:12 08/15/19 09:23 08/15/19 03:12 Plan Activity: fall precautions Weight Bearing Status: Non-Weight Bearing Diet: regular, low cholesterol, diabetic Special Instructions: restrict fluid intake to Follow up with: CYN WATSON MD [Primary Care Provider] - 3-5 Days Prescriptions: Aspirin BABY CHEW TAB 81 mg PO DAILY #30 AtorvaSTATin 20 mg PO DAILY #30 Apixaban [Eliquis] 5 mg PO Q12HR #60 tablet Jardiance 10 mg PO DAILY #30 AtorvaSTATin [Lipitor] 40 mg PO QHS #30 tablet Metoprolol [Lopressor TAB] 50 mg PO BID #60 tablet HYDROcodone/APAP 5-325 [[place] 5-325 mg TAB] 2 each PO Q6H PRN #8 tablet PRN Reason: Pain, Moderate (4-6)
== END 2019-08-15 10:00 | disposition home or self-care (01) | DRG 62 ==
LOC: ED 16:02 → CC1 19:57 → 4A 08-10 20:44
PROVIDERS: ADMIT Internal Medicine; ATTEND Family Medicine
PROC: 3E03317 Introduction of Other Thrombolytic into Peripheral Vein, Percutaneous Approach (ICD-10-PCS; principal; 2019-08-09)
PROC: 3E0234Z Introduction of Serum, Toxoid and Vaccine into Muscle, Percutaneous Approach (ICD-10-PCS; 2019-08-11)
DX: I63.9 Cerebral infarction, unspecified (principal); G81.94 Hemiplegia, unspecified affecting left nondominant side; I31.3 Pericardial effusion (noninflammatory); R29.810 Facial weakness; I10 Essential (primary) hypertension; E83.52 Hypercalcemia; E87.5 Hyperkalemia; E11.649 Type 2 diabetes mellitus with hypoglycemia without coma; I48.91 Unspecified atrial fibrillation; I08.1 Rheumatic disorders of both mitral and tricuspid valves; Z23 Encounter for immunization
CPT/HCPCS: 36415; 70450; 70496; 70498; 70551; 80048; 80053; 80061; 80076; 82550; 82553; 82962; 83036; 83735; 84439; 84443; 84484; 85007; 85025; 85027; 85610; 85670; 85730; 90732; 93005; 93010; 93306; 96374; 96375; G0378; A9270-GY; J0282; J0610; J1815; J2997; J7040; J7060; Q9967

== ENCOUNTER 2019-08-27 14:06 | Inpatient (IN) | payer MEDICARE ==
--- NOTE | 2019-08-27 15:10 | Emergency Department Report ---
ED Neuro Deficit HPI - General Chief Complaint: Neuro Symptoms/Deficit Stated Complaint: SLURR SPEECH Time Seen by Provider: 08/27/19 14:34 Source: patient, family Mode of arrival: Wheelchair Limitations: Physical Limitation - History of Present Illness Initial Comments: Patient is 74 years old female with a recent diagnosis of stroke, patient received TPA. Patient symptoms completely resolved. Patient presented today with her family stating that patient would accompanied this morning with left facial droop and difficulty speaking. Patient denied any new weakness, numbness or tingling sensation. -: Last night Location: speech, left face - Related Data Home Medications: Home Medications Medication Instructions Recorded Confirmed Last Taken Levothyroxine 50 mcg PO DAILY 08/09/19 08/27/19 Unknown Losartan 50 mg PO DAILY 08/09/19 08/27/19 Unknown metFORMIN 1,000 mg PO BID 08/09/19 08/27/19 Unknown Insulin Regular, Human 42 units SUB-Q BID 08/27/19 08/27/19 Unknown Previous Rx's Medication Instructions Recorded Last Taken Type Apixaban [Eliquis] 5 mg PO Q12HR #60 tablet 08/15/19 Unknown Rx Aspirin BABY CHEW TAB 81 mg PO DAILY #30 08/15/19 Unknown Rx AtorvaSTATin [Lipitor] 40 mg PO QHS #30 tablet 08/15/19 Unknown Rx Docusate Sodium [Colace CAP] 100 mg PO BID capsule 08/15/19 Unknown Rx HYDROcodone/APAP 5-325 [[place] 2 each PO Q6H PRN #8 tablet 08/15/19 Unknown Rx 5-325 mg TAB] Jardiance 10 mg PO DAILY #30 08/15/19 Unknown Rx Metoprolol [Lopressor TAB] 50 mg PO BID #60 tablet 08/15/19 Unknown Rx Allergies/Adverse Reactions: Allergies Allergy/AdvReac Type Severity Reaction Status Date / Time No Known Allergies Allergy Unverified 08/09/19 16:08 ED Review of Systems ROS: Stated complaint: SLURR SPEECH Other details as noted in HPI Comment: All other systems reviewed and negative Constitutional: denies: chills, fever Respiratory: denies: cough, shortness of breath Cardiovascular: denies: chest pain Gastrointestinal: denies: abdominal pain, nausea, vomiting, diarrhea, constipation, hematemesis, hematochezia Musculoskeletal: denies: back pain ED Past Medical Hx - Past Medical History Previous Medical History?: Yes Hx Hypertension: Yes Hx CVA: Yes Hx Diabetes: Yes - Surgical History Past Surgical History?: No - Social History Smoking Status: Never Smoker Substance Use Type: Alcohol, Prescribed - Medications Home Medications: Home Medications Medication Instructions Recorded Confirmed Last Taken Type Levothyroxine 50 mcg PO DAILY 08/09/19 08/27/19 Unknown History Losartan 50 mg PO DAILY 08/09/19 08/27/19 Unknown History metFORMIN 1,000 mg PO BID 08/09/19 08/27/19 Unknown History Apixaban [Eliquis] 5 mg PO Q12HR #60 tablet 08/15/19 08/27/19 Unknown Rx Aspirin BABY CHEW TAB 81 mg PO DAILY #30 08/15/19 08/27/19 Unknown Rx AtorvaSTATin [Lipitor] 40 mg PO QHS #30 tablet 08/15/19 08/27/19 Unknown Rx Docusate Sodium [Colace CAP] 100 mg PO BID capsule 08/15/19 08/27/19 Unknown Rx HYDROcodone/APAP 5-325 [[place] 2 each PO Q6H PRN #8 tablet 08/15/19 08/27/19 Unknown Rx 5-325 mg TAB] Jardiance 10 mg PO DAILY #30 08/15/19 08/27/19 Unknown Rx Metoprolol [Lopressor TAB] 50 mg PO BID #60 tablet 08/15/19 08/27/19 Unknown Rx Insulin Regular, Human 42 units SUB-Q BID 08/27/19 08/27/19 Unknown History ED Neuro Physical Exam - General Limitations: Physical Limitation General appearance: alert, in no apparent distress Suspected Stroke: Yes - Head Head exam: Present: atraumatic, normocephalic, normal inspection - Eye Eye exam: Present: normal appearance, PERRL - ENT ENT exam: Present: normal exam, normal orophraynx, mucous membranes moist - Neck Neck exam: Present: normal inspection, full ROM. Absent: tenderness, meningismus, lymphadenopathy, thyromegaly - Respiratory Respiratory exam: Present: normal lung sounds bilaterally - Cardiovascular Cardiovascular Exam: Present: regular rate, normal rhythm, normal heart sounds - GI/Abdominal GI/Abdominal exam: Present: soft, normal bowel sounds. Absent: distended, te nderness, guarding, rebound, rigid, organomegaly, mass, bruit, pulsatile mass, hernia - Extremities Exam Extremities exam: Present: normal inspection, full ROM, normal capillary refill. Absent: tenderness, pedal edema, joint swelling, calf tenderness - Back Exam Back exam: Present: normal inspection, full ROM. Absent: CVA tenderness (R), CVA tenderness (L), muscle spasm, paraspinal tenderness, vertebral tenderness - Neurological Exam Neurological exam: Present: alert, oriented X3 - NIHSS Assessment Interval: Baseline 1a. Level of Consciousness: alert/keenly responsive 1b. LOC Questions: answers both correctly 1c. LOC Commands: performs tasks correctly 2. Best Gaze: normal 3. Visual: no visual loss 4. Facial Palsy: minor paralysis 5b. Motor Arm Right: no drift 5a. Motor Arm Left: no drift 6a. Motor Leg Left: no drift 6b. Motor Leg Right: no drift 7. Limb Ataxia: absent 8. Sensory: normal 9. Best Language: mild/moderate aphasia 10. Dysarthria: mild/moderate dysarthria 11. Extinction/Inattention: no abnormality Total Score: 3 Stroke Severity: Minor Stroke - Psychiatric Psychiatric exam: Present: normal mood - Skin Skin exam: Present: warm, intact, normal color ED Course Vital Signs 08/27/19 14:26 Temperature 98.5 F Pulse Rate 66 Respiratory 18 Rate Blood Pressure 153/62 O2 Sat by Pulse 96 Oximetry - Lab Data Result diagrams: 08/27/19 14:55 Lab Results 08/27/19 08/27/19 08/27/19 Range/Units 14:41 14:54 14:55 WBC 10.8 (4.5-11.0) K/mm3 RBC 5.22 H (3.65-5.03) M/mm3 Hgb 14.7 H (10.1-14.3) gm/dl Hct 45.8 H (30.3-42.9) % MCV 88 (79-97) fl MCH 28 (28-32) pg MCHC 32 (30-34) % RDW 18.2 H (13.2-15.2) % Plt Count 282 (140-440) K/mm3 Lymph % (Auto) 19.8 (13.4-35.0) % Cowley % (Auto) 5.0 (0.0-7.3) % Eos % (Auto) 1.3 (0.0-4.3) % Baso % (Auto) 0.9 (0.0-1.8) % Lymph # 2.1 (1.2-5.4) K/mm3 Cowley # 0.5 (0.0-0.8) K/mm3 Eos # 0.1 (0.0-0.4) K/mm3 Baso # 0.1 (0.0-0.1) K/mm3 Seg Neutrophils % 73.0 H (40.0-70.0) % Seg Neutrophils # 7.9 H (1.8-7.7) K/mm3 PT (12.2-14.9) Sec. INR (0.87-1.13) APTT (24.2-36.6) Sec. Thrombin Time (15.1-19.6) Sec. POC Glucose 122 H 144 H (70-105) 08/27/19 08/27/19 Range/Units 14:55 14:55 WBC (4.5-11.0) K/mm3 RBC (3.65-5.03) M/mm3 Hgb (10.1-14.3) gm/dl Hct (30.3-42.9) % MCV (79-97) fl MCH (28-32) pg MCHC (30-34) % RDW (13.2-15.2) % Plt Count (140-440) K/mm3 Lymph % (Auto) (13.4-35.0) % Cowley % (Auto) (0.0-7.3) % Eos % (Auto) (0.0-4.3) % Baso % (Auto) (0.0-1.8) % Lymph # (1.2-5.4) K/mm3 Cowley # (0.0-0.8) K/mm3 Eos # (0.0-0.4) K/mm3 Baso # (0.0-0.1) K/mm3 Seg Neutrophils % (40.0-70.0) % Seg Neutrophils # (1.8-7.7) K/mm3 PT 15.3 H (12.2-14.9) Sec. INR 1.24 H (0.87-1.13) APTT 34.7 (24.2-36.6) Sec. Thrombin Time 16.1 (15.1-19.6) Sec. POC Glucose (70-105) - EKG Data -: EKG Interpreted by Me EKG shows normal: sinus rhythm Rate: normal Interpretation: no acute changes - Radiology Data Radiology results: report reviewed - Medical Decision Making Patient is 74 years old female with a recent diagnosis of stroke, patient received TPA. Patient symptoms completely resolved. Patient presented today with her family stating that patient would accompanied this morning with left facial droop and difficulty speaking. Patient denied any new weakness, numbness or tingling sensation. Stroke protocol initiated immediately. Patient moved to CT scan for a CT bran. Telemetry stroke contacted and Dr. Emily Kelly examined the patient. She decided patient is not a TPA candidate and advised patient to be admitted to the hospital for further workup. I discussed the patient is Dr. Driscoll, he agreed to admit the patient to medical service. Critical Care Time: Yes Critical care time in (mins) excluding proc time.: 30 Critical care attestation.: If time is entered above; I have spent that time in minutes in the direct care of this critically ill patient, excluding procedure time. ED Disposition Clinical Impression: Acute CVA (cerebrovascular accident) Disposition: DC-[id number] OP ADMIT IP TO THIS HOSP Is pt being admited?: Yes Condition: Stable
--- NOTE | 2019-08-27 15:19 | Cat Scan Report ---
CT HEAD WITHOUT CONTRAST INDICATION / CLINICAL INFORMATION: neuro deficits <6hrs or sx present upon awakening. TECHNIQUE: All CT scans at this location are performed using CT dose reduction for ALARA by means of automated e xposure control. COMPARISON: None available. FINDINGS: HEMORRHAGE: No evidence of intracranial hemorrhage or extra-axial fluid collection. EXTRA-AXIAL SPACES: Cortical sulci and sylvian fissures are mildly enlarged reflecting a degree of pa renchymal volume loss which is within normal limits for the patient's age of 74 years. Basilar cister ns have an unremarkable appearance. VENTRICULAR SYSTEM: The third and lateral ventricles are enlarged reflecting resonance of age related parenchymal volume loss. CEREBRAL PARENCHYMA: Periventricular and deep white matter lucency is observed. This is probably seco ndary to microvascular ischemic change. There is no indication of recent infarction. No areas of ence phalomalacia are identified recent MRI dated 08/11/2019 demonstrated several small deep infarctions th e right gangliocapsular region as well as along the right parietal cortex. These areas of previously documented infarction are relatively inapparent on this computed tomographic study. There is no indic ation of more recent infarction. MIDLINE SHIFT OR HERNIATION: There is no mass effect. CEREBELLUM / BRAINSTEM: Brainstem and cerebellum have an unremarkable appearance. INTRACRANIAL VESSELS:Calcified atherosclerotic plaque is present along the course of the cavernous se gments of both internal carotid arteries. ORBITS: Status post bilateral cataract surgery. The orbits have an otherwise unremarkable appearance. SOFT TISSUES of HEAD: No significant abnormality. CALVARIUM: Evaluation of bone windows reveals no abnormalities. PARANASAL SINUSES / MASTOID AIR CELLS: Paranasal sinuses are free from inflammatory mucosal disease. Mastoid air cells are normally pneumatized. IMPRESSION: 1. Age-related involutional changes. 2. No indication of acute infarction, hemorrhage or mass. Code stroke patient: I called report of this study to Dr. Benton at the [facility] emergency department at about 1405 Central standard time. Examination was marked "stat" in PACS but I received no communication that the patient was a code stroke patient from the echo vascular technologist. Examination was on the work list for about 15 minutes prior to interpretation. Signer Name: Anthony Nieves MD Signed: 08/27/2019 3:14 PM Workstation Name: [id number]
[2019-08-27 15:38] LABS: Basophils # (Auto) 0.1 K/mm3 (0.0-0.1); Basophils % (Auto) 0.9 % (0.0-1.8); Eosinophils # (Auto) 0.1 K/mm3 (0.0-0.4); Eosinophils % (Auto) 1.3 % (0.0-4.3); Hematocrit 45.8 % (30.3-42.9); Hemoglobin 14.7 gm/dl (10.1-14.3); Lymphocytes # (Auto) 2.1 K/mm3 (1.2-5.4); Lymphocytes % (Auto) 19.8 % (13.4-35.0); Mean Corpuscular HGB Conc 32 % (30-34); Mean Corpuscular Volume 88 fl (79-97); Monocytes # (Auto) 0.5 K/mm3 (0.0-0.8); Platelet Count 282 K/mm3 (140-440); Red Blood Count 5.22 M/mm3 (3.65-5.03); Red Cell Distribution Width 18.2 % (13.2-15.2)
--- NOTE | 2019-08-27 15:40 | Consultation ---
History of Present Illness Consult date: 08/27/19 Reason for Consult: stroke alert History of present illness: [facility] Date of Service: 08/27/2019 14:36:46 Impression: RO Acute Ischemic Stroke Comments: not a tpa candidate, not an LVO; recommend aspirin when no bleed confirmed on CT and admit for MRI to r/o new stroke vs other cause of recrudescence of recent stroke sx Mechanism of Stroke: Not Clear Metrics: Last Known Well: 08/26/2019 21:30:20 [employer] Notification Time: 08/27/2019 14:36:00 Arrival Time: 08/27/2019 01:26:55 Stamp Time: 08/27/2019 14:36:46 Time First Login Attempt: 08/27/2019 14:42:55 Video Start Time: 08/27/2019 14:42:55 Symptoms: weakness, drooling NIHSS Start Assessment Time: 08/27/2019 14:45:45 Patient is not a candidate for tPA. Patient was not deemed candidate for tPA thrombolytics because of Last Well Known Above 4.5 Hours. Video End Time: 08/27/2019 14:50:53 CT head showed no acute hemorrhage or acute core infarct. ER physician notified of the decision on thrombolytics management. Our recommendations are outlined below. Recommendations: Antiplatelet Therapy Recommended Recommended Scan: MRI Head Without Contrast Therapies: Physical Therapy, Occupational Therapy, Speech Therapy Assessment When Applicable Dysphaghia Screen: Swallow Evaluation, Bedside DVT prophylaxis: Choice of Primary Team Disposition: Follow up with Teleneurology Follow up Sign Out: Discussed with Emergency Department Provider History of Present Illness: Patient is a 74 years old Female. Patient was brought by EMS for symptoms of weakness, drooling Patient was here 2 weeks ago with stroke affecting left side, had tpa and did well; Daughter states father called 45 min ago and said patient wasn't feelng well; daughter went there and noted she wasn't speaking well, has h/o stroke and didn't want her to call ambulance; this morning when she woke up had hard time getting out of bed, drooling a lot at breakfast; she was her normal self when she went to bed last night; CT head showed no acute hemorrhage or acute core infarct. Last seen normal was beyond 4.5 hours of presentation. There is history of recent stroke. Examination: 1A: Level of Consciousness - Alert; keenly responsive + 0 1B: Ask Month and Age - 1 Question Right + 1 1C: Blink Eyes & Squeeze Hands - Performs Both Tasks + 0 2: Test Horizontal Extraocular Movements - Normal + 0 3: Test Visual Phillips - No Visual Loss + 0 4: Test Facial Palsy (Use Grimace if Obtunded) - Minor paralysis (flat nasolabial fold, smile asymetry) + 1 5A: Test Left Arm Motor Drift - No Drift for 10 Seconds + 0 5B: Test Right Arm Motor Drift - No Drift for 10 Seconds + 0 6A: Test Left Leg Motor Drift - No Drift for 5 Seconds + 0 6B: Test Right Leg Motor Drift - No Drift for 5 Seconds + 0 7: Test Limb Ataxia (FNF/Heel-Henao) - No Ataxia + 0 8: Test Sensation - Normal; No sensory loss + 0 9: Test Language/Aphasia - Normal; No aphasia + 0 10: Test Dysarthria - Mild-Moderate Dysarthria: Slurring but can be understood + 1 11: Test Extinction/Inattention - No abnormality + 0 NIHSS Score: 3 Patient was informed the Neurology Consult would happen via TeleHealth consult by way of interactive audio and video telecommunications and consented to receiving care in this manner. Due to the immediate potential for life-threatening deterioration due to underlying acute neurologic illness, I spent 35 minutes providing critical care. This time includes time for face to face visit via telemedicine, review of m edical records, imaging studies and discussion of findings with providers, the patient and/or family. Dr Emily Kelly [facility] Medications and Allergies Allergies Allergy/AdvReac Type Severity Reaction Status Date / Time No Known Allergies Allergy Unverified 08/09/19 16:08 Home Medications Medication Instructions Recorded Confirmed Last Taken Type Levothyroxine 50 mcg PO DAILY 08/09/19 08/27/19 Unknown History Losartan 50 mg PO DAILY 08/09/19 08/27/19 Unknown History metFORMIN 1,000 mg PO BID 08/09/19 08/27/19 Unknown History Apixaban [Eliquis] 5 mg PO Q12HR #60 tablet 08/15/19 08/27/19 Unknown Rx Aspirin BABY CHEW TAB 81 mg PO DAILY #30 08/15/19 08/27/19 Unknown Rx AtorvaSTATin [Lipitor] 40 mg PO QHS #30 tablet 08/15/19 08/27/19 Unknown Rx Docusate Sodium [Colace CAP] 100 mg PO BID capsule 08/15/19 08/27/19 Unknown Rx HYDROcodone/APAP 5-325 [[place] 2 each PO Q6H PRN #8 tablet 08/15/19 08/27/19 Unknown Rx 5-325 mg TAB] Jardiance 10 mg PO DAILY #30 08/15/19 08/27/19 Unknown Rx Metoprolol [Lopressor TAB] 50 mg PO BID #60 tablet 08/15/19 08/27/19 Unknown Rx Insulin Regular, Human 42 units SUB-Q BID 08/27/19 08/27/19 Unknown History Physical Examination - Vital Signs Vital Signs: Vital Signs Temp Pulse Resp BP Pulse Ox 98.5 F 66 18 153/62 96 08/27/19 14:26 08/27/19 14:26 08/27/19 14:26 08/27/19 14:26 08/27/19 14:26 Results - Laboratory Findings CBC and BMP: 08/27/19 14:55 Abnormal Lab Findings: Abnormal Labs 08/27/19 08/27/19 08/27/19 14:41 14:54 14:55 RBC 5.22 H Hgb 14.7 H Hct 45.8 H RDW 18.2 H Seg Neutrophils % 73.0 H Seg Neutrophils # 7.9 H POC Glucose 122 H 144 H
[2019-08-27 15:45] LABS: INR 1.24 (0.87-1.13)
[2019-08-27 15:46] LABS: Partial Thromboplastin Time 34.7 Sec. (24.2-36.6)
[2019-08-27 15:54] LABS: BUN/Creatinine Ratio 16; Blood Urea Nitrogen 16 mg/dL (7-17); Calcium 8.6 mg/dL (8.4-10.2); Hemolysis Index 3
[2019-08-27] MEDS ORDERED: HYDROcodone/ACETAMINOPHEN 5-325 MG TAB PO PRN (21:44)
[2019-08-27] MEDS ORDERED: NON-FORMULARY EACH (Losartan 50 MG) PO SCH (21:45)
[2019-08-27] MEDS ORDERED: LEVOTHYROXINE 50 MCG PO SCH (21:45)
[2019-08-27] MEDS ORDERED: NON-FORMULARY EACH (Aspirin Baby Chew Tab 81 MG) PO SCH (21:45)
[2019-08-27] MEDS ORDERED: HYDROmorphone 1 MG/1 ML INJ IV PRN (21:50)
[2019-08-27] MEDS ORDERED: ONDANSETRON 4 MG/2 ML INJ IV PRN (21:50)
[2019-08-27] MEDS ORDERED: ACETAMINOPHEN 325 MG TAB PO PRN (21:50)
[2019-08-27] MEDS ORDERED: NON-FORMULARY EACH (Metformin 1,000 MG) PO SCH (22:00)
[2019-08-27] MEDS ORDERED: SODIUM CHLORIDE 0.9% 1000 ML 1,000 ML IV SCH (22:00)
[2019-08-27] MEDS: APIXABAN 5 MG TAB PO SCH (23:41)
[2019-08-27] MEDS: METOPROLOL TARTRATE 50 MG TAB PO SCH (23:41)
[2019-08-27] MEDS: LOSARTAN 50 MG TAB PO SCH (23:42)
[2019-08-27] MEDS: DOCUSATE SODIUM 100 MG CAP PO SCH (23:43)
[2019-08-27] MEDS: INSULIN LISPRO 100 UNIT/ML SUB-Q SCH (23:43)
[2019-08-28 06:46] LABS: Alanine Aminotransferase 19 units/L (7-56); Albumin 3.7 g/dL (3.9-5); BUN/Creatinine Ratio 17; Blood Urea Nitrogen 15 mg/dL (7-17); Calcium 8.7 mg/dL (8.4-10.2); Chol/HDL Ratio 3.63 %; HDL Cholesterol 30 mg/dL (40-59); Hemolysis Index 1; LDL Cholesterol,Direct 62 mg/dL (50-130)
[2019-08-28] MEDS: LEVOTHYROXINE 50 MCG TAB PO SCH (06:55)
--- NOTE | 2019-08-28 07:33 | History and Physical Report ---
History of Present Illness Date of examination: 08/27/19 Date of admission: 08/27/19 15:54 Chief complaint: Slurred speech since last night. History of present illness: 74 years old AA female comes in for slurred speech and L facial droop since last night.Symptoms persist.Patient had Acute CVA on 08/09/19.Had TPA and recovered completely.Was doing well till last night.Developed slurred speech and Lt facial droop.Able to walk.No seizures or syncope.No fever or chills. Discharge summary --08/15/19 74-year-old female with history of hypertension and diabetes who presents to [facility] ED via EMS with complaints of left sided weakness and left facial droop. Family is present at bedside and has assisted with providing history. According to patient's family patient was in the kitchen earlier today cooking, when suddenly became weak on the left side. She was noted to have left sided facial droop as well. upon EMS arrival to pt'e home she was found to be hypoglycemic with BG of 52. She was given oral glucose (by EMS) and was responsive with BG of 72. Upon arrival to out facility she was noted to have left facial droop, left upper and lower extremity weakness. CT Head was negative. Teleneurology () was consulted and evaluated pt. Per Dr. Irizarry's recommendations pt received tPA in ED. left sided weakness and slurred speech resolve MRI confirme right basal ganglia infarct. Stroke protocl commence on admission. Symptom resolved with no further neuro deficit. Pt had afib with RVR that was treated with cardiology on board ECHO showed EF of 55-60 % with no intramural thrombus. Rate controlled an she id being dechraed on Eliquis to f/u with PCP in 5 day and cardiology ion 7 days Disposition: DC- TO HOME OR SELFCARE Time spent for discharge: 40 mins - Discharge Diagnoses (1) Acute CVA (cerebrovascular accident) Status: Acute (2) Diabetes Status: Chronic (3) HTN (hypertension) Status: Chronic (4) Atrial fibrillation with RVR Status: Resolved Past Medical History Previous Medical History?: Yes Hypertension: Yes CVA: Yes Diabetes: Yes Surgical History No Social History Smoking Status: Never Smoker Substance Use Type: Alcohol, Prescribed Family History Htn - Medications Home Medications: Home Medications Medication Instructions Recorded Confirmed Last Taken Type Levothyroxine 50 mcg PO DAILY 08/09/19 08/27/19 Unknown History Losartan 50 mg PO DAILY 08/09/19 08/27/19 Unknown History metFORMIN 1,000 mg PO BID 08/09/19 08/27/19 Unknown History Apixaban [Eliquis] 5 mg PO Q12HR #60 tablet 08/15/19 08/27/19 Unknown Rx Aspirin BABY CHEW TAB 81 mg PO DAILY #30 08/15/19 08/27/19 Unknown Rx AtorvaSTATin [Lipitor] 40 mg PO QHS #30 tablet 08/15/19 08/27/19 Unknown Rx Docusate Sodium [Colace CAP] 100 mg PO BID capsule 08/15/19 08/27/19 Unknown Rx HYDROcodone/APAP 5-325 [[place] 2 each PO Q6H PRN #8 tablet 08/15/19 08/27/19 Unknown Rx 5-325 mg TAB] Jardiance 10 mg PO DAILY #30 08/15/19 08/27/19 Unknown Rx Metoprolol [Lopressor TAB] 50 mg PO BID #60 tablet 08/15/19 08/27/19 Unknown Rx Insulin Regular, Human 42 units SUB-Q BID 08/27/19 08/27/19 Unknown History Review of Systems ROS: Stated complaint: SLURR SPEECH Other details as noted in HPI Comment: All other systems reviewed and negative Constitutional: denies: chills, fever Respiratory: denies: cough, shortness of breath Cardiovascular: denies: chest pain Gastrointestinal: denies: abdominal pain, nausea, vomiting, diarrhea, constipation, hematemesis, hematochezia Musculoskeletal: denies: back pain Medications and Allergies Allergies Allergy/AdvReac Type Severity Reaction Status Date / Time No Known Allergies Allergy Unverified 08/09/19 16:08 Home Medications Medication Instructions Recorded Confirmed Last Taken Type Levothyroxine 50 mcg PO DAILY 08/09/19 08/27/19 Unknown History Losartan 50 mg PO DAILY 08/09/19 08/27/19 Unknown History metFORMIN 1,000 mg PO BID 08/09/19 08/27/19 Unknown History Apixaban [Eliquis] 5 mg PO Q12HR #60 tablet 08/15/19 08/27/19 Unknown Rx Aspirin BABY CHEW TAB 81 mg PO DAILY #30 08/15/19 08/27/19 Unknown Rx AtorvaSTATin [Lipitor] 40 mg PO QHS #30 tablet 08/15/19 08/27/19 Unknown Rx Docusate Sodium [Colace CAP] 100 mg PO BID capsule 08/15/19 08/27/19 Unknown Rx HYDROcodone/APAP 5-325 [[place] 2 each PO Q6H PRN #8 tablet 08/15/19 08/27/19 Unknown Rx 5-325 mg TAB] Jardiance 10 mg PO DAILY #30 08/15/19 08/27/19 Unknown Rx Metoprolol [Lopressor TAB] 50 mg PO BID #60 tablet 08/15/19 08/27/19 Unknown Rx Insulin Regular, Human 42 units SUB-Q BID 08/27/19 08/27/19 Unknown History Active Meds: Active Medications Acetaminophen (Tylenol) 650 mg PO Q4H PRN PRN Reason: Pain MILD(1-3)/Fever >100.5/FLANAGAN Acetaminophen/Hydrocodone Bitart ([place] 5/325) 2 each PO Q6H PRN PRN Reason: Pain, Moderate (4-6) Apixaban (Eliquis) 5 mg PO Q12HR [facility]; Protocol Last Admin: 08/27/19 23:41 Dose: 5 mg Documented by: Aspirin (Baby Aspirin) 81 mg PO DAILY [facility] Atorvastatin Calcium (Lipitor) 40 mg PO QHS [facility] Last Admin: 08/27/19 23:41 Dose: 40 mg Documented by: Docusate Sodium (Colace) 100 mg PO BID [facility] Last Admin: 08/27/19 23:43 Dose: Not Given Documented by: Hydromorphone HCl (Dilaudid) 0.5 mg IV Q3H PRN PRN Reason: Pain , Severe (7-10) Sodium Chloride (Nacl 0.9% 1000 Ml) 1,000 mls @ 42 mls/hr IV DIRECT [facility] Insulin Human Lispro (Humalog) 0 unit SUB-Q ACHS [facility]; Protocol Last Admin: 08/27/19 23:43 Dose: Not Given Documented by: Levothyroxine Sodium (Synthroid) 50 mcg PO DAILY@0600 [facility] Last Admin: 08/28/19 06:55 Dose: 50 mcg Documented by: Losartan Potassium (Cozaar) 50 mg PO QDAY [facility] Last Admin: 08/27/19 23:42 Dose: Not Given Documented by: Metformin HCl (Glucophage) 1,000 mg PO BIDDIAB [facility] Metoprolol Tartrate (Lopressor) 50 mg PO BID [facility] Last Admin: 08/27/19 23:41 Dose: 50 mg Documented by: Miscellaneous Medication (Jardiance) 10 mg PO DAILY [facility] Ondansetron HCl (Zofran) 4 mg IV Q8H PRN PRN Reason: Nausea And Vomiting Sodium Chloride (Sodium Chloride Flush Syringe 10 Ml) 10 ml IV BID [facility] Last Admin: 08/27/19 23:44 Dose: 10 ml Documented by: Sodium Chloride (Sodium Chloride Flush Syringe 10 Ml) 10 ml IV PRN PRN PRN Reason: LINE FLUSH Exam - Constitutional Vitals: Temp Pulse Resp BP Pulse Ox 98.3 F 67 18 124/46 96 08/27/19 23:32 08/27/19 23:42 08/27/19 23:32 08/27/19 23:42 08/27/19 23:32 General appearance: Present: no acute distress, well-nourished - EENT Eyes: Present: PERRL ENT: hearing intact, clear oral mucosa - Neck Neck: Present: supple, normal ROM - Respiratory Respiratory effort: normal Respiratory: bilateral: CTA - Cardiovascular Heart rate: 78 Rhythm: regular Heart Sounds: Present: S1 & S2. Absent: rub, click - Extremities Extremities: pulses symmetrical, No edema Peripheral Pulses: within normal limits - Abdominal General gastrointestinal: Present: soft, non-tender, non-distended, normal bowel sounds Female genitourinary: Present: normal - Rectal Rectal Exam: deferred - Integumentary Integumentary: Present: clear, warm, dry - Musculoskeletal Musculoskeletal: gait normal, strength equal bilaterally - Psychiatric Psychiatric: appropriate mood/affect, intact judgment & insight - Neurologic Neurologic: CNII-XII intact, focal deficits (L facial droop.,slurred speech), moves all extremities Results - Labs CBC & Chem 7: 08/27/19 14:55 08/28/19 04:00 Labs: Laboratory Last Values WBC 10.8 K/mm3 (4.5-11.0) 08/27/19 14:55 RBC 5.22 M/mm3 (3.65-5.03) H 08/27/19 14:55 Hgb 14.7 gm/dl (10.1-14.3) H 08/27/19 14:55 Hct 45.8 % (30.3-42.9) H 08/27/19 14:55 MCV 88 fl (79-97) 08/27/19 14:55 MCH 28 pg (28-32) 08/27/19 14:55 MCHC 32 % (30-34) 08/27/19 14:55 RDW 18.2 % (13.2-15.2) H 08/27/19 14:55 Plt Count 282 K/mm3 (140-440) 08/27/19 14:55 Lymph % (Auto) 19.8 % (13.4-35.0) 08/27/19 14:55 [place] % (Auto) 5.0 % (0.0-7.3) 08/27/19 14:55 Eos % (Auto) 1.3 % (0.0-4.3) 08/27/19 14:55 Baso % (Auto) 0.9 % (0.0-1.8) 08/27/19 14:55 Lymph # 2.1 K/mm3 (1.2-5.4) 08/27/19 14:55 [place] # 0.5 K/mm3 (0.0-0.8) 08/27/19 14:55 Eos # 0.1 K/mm3 (0.0-0.4) 08/27/19 14:55 Baso # 0.1 K/mm3 (0.0-0.1) 08/27/19 14:55 Seg Neutrophils % 73.0 % (40.0-70.0) H 08/27/19 14:55 Seg Neutrophils # 7.9 K/mm3 (1.8-7.7) H 08/27/19 14:55 PT 15.3 Sec. (12.2-14.9) H 08/27/19 14:55 INR 1.24 (0.87-1.13) H 08/27/19 14:55 APTT 34.7 Sec. (24.2-36.6) 08/27/19 14:55 Thrombin Time 16.1 Sec. (15.1-19.6) 08/27/19 14:55 Sodium 142 mmol/L (137-145) 08/28/19 04:00 Potassium 5.0 mmol/L (3.6-5.0) 08/28/19 04:00 Chloride 102.5 mmol/L (98-107) 08/28/19 04:00 Carbon Dioxide 26 mmol/L (22-30) 08/28/19 04:00 Anion Gap 19 mmol/L 08/28/19 04:00 BUN 15 mg/dL (7-17) 08/28/19 04:00 Creatinine 0.9 mg/dL (0.7-1.2) 08/28/19 04:00 Estimated GFR > 60 ml/min 08/28/19 04:00 BUN/Creatinine Ratio 17 % 08/28/19 04:00 Glucose 150 mg/dL (65-100) H 08/28/19 04:00 POC Glucose 96 (70-105) 08/27/19 20:26 Hemoglobin A1c 8.1 % (4-6) H 08/27/19 21:30 Calcium 8.7 mg/dL (8.4-10.2) 08/28/19 04:00 Total Bilirubin 0.60 mg/dL (0.1-1.2) 08/28/19 04:00 AST 16 units/L (5-40) 08/28/19 04:00 ALT 19 units/L (7-56) 08/28/19 04:00 Alkaline Phosphatase 77 units/L (35-129) 08/28/19 04:00 Troponin T < 0.010 ng/mL (0.00-0.029) 08/27/19 14:55 Total Protein 7.1 g/dL (6.3-8.2) 08/28/19 04:00 Albumin 3.7 g/dL (3.9-5) L 08/28/19 04:00 Albumin/Globulin Ratio 1.1 % 08/28/19 04:00 Triglycerides 95 mg/dL (2-149) 08/28/19 04:00 Cholesterol 109 mg/dL (50-199) 08/28/19 04:00 LDL Cholesterol Direct 62 mg/dL (50-130) 08/28/19 04:00 HDL Cholesterol 30 mg/dL (40-59) L 08/28/19 04:00 Cholesterol/HDL Ratio 3.63 % 08/28/19 04:00 Short CBC 08/27/19 Range/Units 14:55 WBC 10.8 (4.5-11.0) K/mm3 Hgb 14.7 H (10.1-14.3) gm/dl Hct 45.8 H (30.3-42.9) % Plt Count 282 (140-440) K/mm3 BMP 08/27/19 08/28/19 14:55 04:00 Sodium 142 142 Potassium 5.7 H 5.0 Chloride 104.0 102.5 Carbon Dioxide 22 26 BUN 16 15 Creatinine 1.0 0.9 Glucose 127 H 150 H Calcium 8.6 8.7 Cardiac Enzymes 08/27/19 Range/Units 14:55 Troponin T < 0.010 (0.00-0.029) ng/mL Liver Function 08/28/19 Range/Units 04:00 Total Bilirubin 0.60 (0.1-1.2) mg/dL AST 16 (5-40) units/L ALT 19 (7-56) units/L Alkaline Phosphatase 77 (35-129) units/L Albumin 3.7 L (3.9-5) g/dL - Imaging and Cardiology EKG: report reviewed CT Scan - head: report reviewed Imaging and Cardiology: CT Head IMPRESSION: 1. Age-related involutional changes. 2. No indication of acute infarction, hemorrhage or mass. Assessment and Plan - Patient Problems (1) IDDM (insulin dependent diabetes mellitus) Current Visit: Yes Status: Acute (2) Acute CVA (cerebrovascular accident) Current Visit: Yes Status: Acute Plan to address problem: Recurrent CVA versus TIA Only MRI ordered Had complete work up 18 days ago Hence ECHO MRA and CDS were not ordered Neuro consult (3) HTN (hypertension) Current Visit: No Status: Chronic Qualifiers: Hypertension type: essential hypertension Qualified Code(s): I10 - Essential (primary) hypertension Plan to address problem: Cont Antihypertensives (4) IDDM (insulin dependent diabetes mellitus) Current Visit: Yes Status: Chronic Plan to address problem: COnt home insulin and coverage Check A1c (5) Hypothyroidism (acquired) Current Visit: Yes Status: Chronic Plan to address problem: Cont Synthyroid Check TSH (6) HLD (hyperlipidemia) Current Visit: Yes Status: Chronic Qualifiers: Hyperlipidemia type: mixed hyperlipidemia Qualified Code(s): E78.2 - Mixed hyperlipidemia Plan to address problem: Cont statins (7) Anticoagulation adequate Current Visit: Yes Status: Chronic Plan to address problem: On Eliquis (8) DVT prophylaxis Current Visit: Yes Status: Acute Plan to address problem: On Eliquis and GI prophylaxis
[2019-08-28] MEDS: INSULIN LISPRO 100 UNIT/ML SUB-Q SCH ×4 (07:43→22:08)
[2019-08-28] MEDS ORDERED: JARDIANCE 10 MG PO SCH (10:00)
[2019-08-28] MEDS: metFORMIN 500 MG TAB PO SCH ×2 (10:40→18:43)
[2019-08-28] MEDS: APIXABAN 5 MG TAB PO SCH ×2 (10:41→22:09)
[2019-08-28] MEDS: ASPIRIN 81 MG TAB CHEW PO SCH (10:41)
[2019-08-28] MEDS: DOCUSATE SODIUM 100 MG CAP PO SCH ×2 (10:41→22:06)
[2019-08-28] MEDS: METOPROLOL TARTRATE 50 MG TAB PO SCH ×2 (10:42→22:06)
[2019-08-28] MEDS: LOSARTAN 50 MG TAB PO SCH (10:43)
--- NOTE | 2019-08-28 12:35 | Progress Note ---
Assessment and Plan - Patient Problems (1) Acute CVA (cerebrovascular accident) Current Visit: Yes Status: Acute Plan to address problem: At present were ruling out another acute event versus recurrent symptoms of same stroke. Patient scheduled to have MRI today. For now we'll treat with aggressive antiplatelet antilipid therapy. OT PT speech has been cleared patient swallowing well. Any further recommendations after MRI or per neurology. (2) IDDM (insulin dependent diabetes mellitus) Current Visit: Yes Status: Acute Plan to address problem: Placed back on metformin which she is on. Continue sliding-scale insulin coverage. Has been well controlled at this point. Would not be too aggressive in 2 weeks 5 out how much patient is eating. (3) HLD (hyperlipidemia) Current Visit: Yes Status: Chronic Qualifiers: Hyperlipidemia type: mixed hyperlipidemia Qualified Code(s): E78.2 - Mixed hyperlipidemia Plan to address problem: Continue aggressive antiplatelet therapy goal LDL less than 70. (4) Hypothyroidism (acquired) Current Visit: Yes Status: Chronic Plan to address problem: Continue Synthroid at current dose may obtain TSH. (5) HTN (hypertension) Current Visit: No Status: Chronic Qualifiers: Hypertension type: essential hypertension Qualified Code(s): I10 - Essential (primary) hypertension Plan to address problem: Present patient has fair control losartan and metoprolol patient has systolic blood pressure 124 has not changed. (6) Atrial fibrillation with RVR Current Visit: No Status: Resolved Plan to address problem: Continue anticoagulation with Eliquis. History Interval history: Patient is a 4-year-old female that presented with slurred speech and left facial droop. Patient has a past history of hypertension or diabetes. Patient was just discharged for an acute CVA on 08/09/2019. At that time patient had right basal ganglia infarct. Patient admitted this time with similar symptoms left facial droop and slurred speech. At presentation patient's speech is still slurred. Patient appears to be alert and attempts to answer your questions. Patient was able to clap hands and move fingers which appeared to be to let me know that she couldn't move and do physical therapy. I'm not sure if this is her baseline. From the last CVA will discuss with family. No ones at bedside at this particular time. Hospitalist Physical - Constitutional Vitals: Temp Pulse Resp BP Pulse Ox 98.3 F 67 18 124/46 96 08/27/19 23:32 08/27/19 23:42 08/27/19 23:32 08/27/19 23:42 08/27/19 23:32 General appearance: Present: no acute distress, well-nourished - EENT Eyes: Present: PERRL, EOM intact ENT: hearing intact, clear oral mucosa, dentition normal - Neck Neck: Present: supple, normal ROM. Absent: enlarged thyroid, masses or JVD, cervical LAD - Respiratory Respiratory effort: normal Respiratory: bilateral: CTA - Cardiovascular Rhythm: regularly irregular - Extremities Extremities: no ischemia, pulses intact, pulses symmetrical, No edema, normal temperature, normal color Peripheral Pulses: within normal limits - Abdominal General gastrointestinal: soft, non-tender, non-distended, normal bowel sounds, no hepatomegaly, no splenomegaly - Integumentary Integumentary: Present: clear, warm, dry - Psychiatric Psychiatric: intact judgment & insight - Neurologic Neurologic: focal deficits, other (judgment appears to be intact has slurred speech and some left-sided weakness.) Results - Labs CBC & Chem 7: 08/27/19 14:55 08/28/19 04:00 Labs: Laboratory Last Values WBC 10.8 K/mm3 (4.5-11.0) 08/27/19 14:55 RBC 5.22 M/mm3 (3.65-5.03) H 08/27/19 14:55 Hgb 14.7 gm/dl (10.1-14.3) H 08/27/19 14:55 Hct 45.8 % (30.3-42.9) H 08/27/19 14:55 MCV 88 fl (79-97) 08/27/19 14:55 MCH 28 pg (28-32) 08/27/19 14:55 MCHC 32 % (30-34) 08/27/19 14:55 RDW 18.2 % (13.2-15.2) H 08/27/19 14:55 Plt Count 282 K/mm3 (140-440) 08/27/19 14:55 Lymph % (Auto) 19.8 % (13.4-35.0) 08/27/19 14:55 [place] % (Auto) 5.0 % (0.0-7.3) 08/27/19 14:55 Eos % (Auto) 1.3 % (0.0-4.3) 08/27/19 14:55 Baso % (Auto) 0.9 % (0.0-1.8) 08/27/19 14:55 Lymph # 2.1 K/mm3 (1.2-5.4) 08/27/19 14:55 [place] # 0.5 K/mm3 (0.0-0.8) 08/27/19 14:55 Eos # 0.1 K/mm3 (0.0-0.4) 08/27/19 14:55 Baso # 0.1 K/mm3 (0.0-0.1) 08/27/19 14:55 Seg Neutrophils % 73.0 % (40.0-70.0) H 08/27/19 14:55 Seg Neutrophils # 7.9 K/mm3 (1.8-7.7) H 08/27/19 14:55 PT 15.3 Sec. (12.2-14.9) H 08/27/19 14:55 INR 1.24 (0.87-1.13) H 08/27/19 14:55 APTT 34.7 Sec. (24.2-36.6) 08/27/19 14:55 Thrombin Time 16.1 Sec. (15.1-19.6) 08/27/19 14:55 Sodium 142 mmol/L (137-145) 08/28/19 04:00 Potassium 5.0 mmol/L (3.6-5.0) 08/28/19 04:00 Chloride 102.5 mmol/L (98-107) 08/28/19 04:00 Carbon Dioxide 26 mmol/L (22-30) 08/28/19 04:00 Anion Gap 19 mmol/L 08/28/19 04:00 BUN 15 mg/dL (7-17) 08/28/19 04:00 Creatinine 0.9 mg/dL (0.7-1.2) 08/28/19 04:00 Estimated GFR > 60 ml/min 08/28/19 04:00 BUN/Creatinine Ratio 17 % 08/28/19 04:00 Glucose 150 mg/dL (65-100) H 08/28/19 04:00 POC Glucose 124 (70-105) H 08/28/19 09:42 Hemoglobin A1c 8.1 % (4-6) H 08/27/19 21:30 Calcium 8.7 mg/dL (8.4-10.2) 08/28/19 04:00 Total Bilirubin 0.60 mg/dL (0.1-1.2) 08/28/19 04:00 AST 16 units/L (5-40) 08/28/19 04:00 ALT 19 units/L (7-56) 08/28/19 04:00 Alkaline Phosphatase 77 units/L (35-129) 08/28/19 04:00 Troponin T < 0.010 ng/mL (0.00-0.029) 08/27/19 14:55 Total Protein 7.1 g/dL (6.3-8.2) 08/28/19 04:00 Albumin 3.7 g/dL (3.9-5) L 08/28/19 04:00 Albumin/Globulin Ratio 1.1 % 08/28/19 04:00 Triglycerides 95 mg/dL (2-149) 08/28/19 04:00 Cholesterol 109 mg/dL (50-199) 08/28/19 04:00 LDL Cholesterol Direct 62 mg/dL (50-130) 08/28/19 04:00 HDL Cholesterol 30 mg/dL (40-59) L 08/28/19 04:00 Cholesterol/HDL Ratio 3.63 % 08/28/19 04:00 TSH 5.090 mlU/mL (0.270-4.200) H 08/28/19 08:13 - Imaging and Cardiology EKG: report reviewed, image reviewed CT Scan - head: report reviewed Imaging and Cardiology: Echocardiogram ejection fraction 45-50%. Left heart cath which showed significant coronary artery disease ejection fraction of 45-50%. Active Medications - Current Medications Current Medications: Generic Name Dose Route Start Last Admin Trade Name Freq PRN Reason Stop Dose Admin Acetaminophen 650 mg 08/27/19 21:50 Tylenol PO Q4H PRN Pain MILD(1-3)/Fever >100.5/FLANAGAN Acetaminophen/Hydrocodone Bitart 2 each 08/27/19 21:44 [place] 5/325 PO Q6H PRN Pain, Moderate (4-6) Apixaban 5 mg 08/27/19 22:00 08/28/19 10:41 Eliquis PO 5 mg Q12HR MIRIAM Administration Protocol Aspirin 81 mg 08/28/19 10:00 08/28/19 10:41 Baby Aspirin PO 81 mg DAILY MIRIAM Administration Atorvastatin Calcium 40 mg 08/27/19 22:00 08/27/19 23:41 Lipitor PO 40 mg QHS MIRIAM Administration Docusate Sodium 100 mg 08/27/19 22:00 08/28/19 10:41 Colace PO 100 mg BID MIRIAM Administration Hydromorphone HCl 0.5 mg 08/27/19 21:50 Dilaudid IV Q3H PRN Pain , Severe (7-10) Sodium Chloride 1,000 mls @ 42 mls/hr 08/27/19 22:00 Nacl 0.9% 1000 Ml IV DIRECT MIRIAM Insulin Human Lispro 0 unit 08/27/19 22:00 08/28/19 07:43 Humalog SUB-Q Not Given ACHS [facility] Protocol Levothyroxine Sodium 50 mcg 08/28/19 06:00 08/28/19 06:55 Synthroid PO 50 mcg DAILY@0600 [facility] Administration Losartan Potassium 50 mg 08/27/19 21:45 08/28/19 10:43 Cozaar PO 50 mg QDAY MIRIAM Administration Metformin HCl 1,000 mg 08/28/19 08:00 08/28/19 10:40 Glucophage PO 1,000 mg BIDDIAB [facility] Administration Metoprolol Tartrate 50 mg 08/27/19 22:00 08/28/19 10:42 Lopressor PO 50 mg BID [facility] Administration Miscellaneous Medication 10 mg 08/28/19 10:00 Jardiance PO DAILY [facility] Ondansetron HCl 4 mg 08/27/19 21:50 Zofran IV Q8H PRN Nausea And Vomiting Sodium Chloride 10 ml 08/27/19 22:00 08/28/19 10:42 Sodium Chloride Flush Syringe 10 Ml IV 10 ml BID MIRIAM Administration Sodium Chloride 10 ml 08/27/19 21:50 Sodium Chloride Flush Syringe 10 Ml IV PRN PRN LINE FLUSH
--- NOTE | 2019-08-28 13:12 | Consultation ---
Medications and Allergies Allergies Allergy/AdvReac Type Severity Reaction Status Date / Time No Known Allergies Allergy Unverified 08/09/19 16:08 Home Medications Medication Instructions Recorded Confirmed Last Taken Type Levothyroxine 50 mcg PO DAILY 08/09/19 08/27/19 Unknown History Losartan 50 mg PO DAILY 08/09/19 08/27/19 Unknown History metFORMIN 1,000 mg PO BID 08/09/19 08/27/19 Unknown History Apixaban [Eliquis] 5 mg PO Q12HR #60 tablet 08/15/19 08/27/19 Unknown Rx Aspirin BABY CHEW TAB 81 mg PO DAILY #30 08/15/19 08/27/19 Unknown Rx AtorvaSTATin [Lipitor] 40 mg PO QHS #30 tablet 08/15/19 08/27/19 Unknown Rx Docusate Sodium [Colace CAP] 100 mg PO BID capsule 08/15/19 08/27/19 Unknown Rx HYDROcodone/APAP 5-325 [[place] 2 each PO Q6H PRN #8 tablet 08/15/19 08/27/19 Unkn own Rx 5-325 mg TAB] Jardiance 10 mg PO DAILY #30 08/15/19 08/27/19 Unknown Rx Metoprolol [Lopressor TAB] 50 mg PO BID #60 tablet 08/15/19 08/27/19 Unknown Rx Insulin Regular, Human 42 units SUB-Q BID 08/27/19 08/27/19 Unknown History Active Meds: Active Medications Acetaminophen (Tylenol) 650 mg PO Q4H PRN PRN Reason: Pain MILD(1-3)/Fever >100.5/FLANAGAN Acetaminophen/Hydrocodone Bitart ([place] 5/325) 2 each PO Q6H PRN PRN Reason: Pain, Moderate (4-6) Apixaban (Eliquis) 5 mg PO Q12HR [facility]; Protocol Last Admin: 08/28/19 10:41 Dose: 5 mg Documented by: Aspirin (Baby Aspirin) 81 mg PO DAILY [facility] Last Admin: 08/28/19 10:41 Dose: 81 mg Documented by: Atorvastatin Calcium (Lipitor) 40 mg PO QHS [facility] Last Admin: 08/27/19 23:41 Dose: 40 mg Documented by: Docusate Sodium (Colace) 100 mg PO BID [facility] Last Admin: 08/28/19 10:41 Dose: 100 mg Documented by: Hydromorphone HCl (Dilaudid) 0.5 mg IV Q3H PRN PRN Reason: Pain , Severe (7-10) Sodium Chloride (Nacl 0.9% 1000 Ml) 1,000 mls @ 42 mls/hr IV DIRECT [facility] Insulin Human Lispro (Humalog) 0 unit SUB-Q ACHS [facility]; Protocol Last Admin: 08/28/19 07:43 Dose: Not Given Documented by: Levothyroxine Sodium (Synthroid) 50 mcg PO DAILY@0600 [facility] Last Admin: 08/28/19 06:55 Dose: 50 mcg Documented by: Losartan Potassium (Cozaar) 50 mg PO QDAY [facility] Last Admin: 08/28/19 10:43 Dose: 50 mg Documented by: Metformin HCl (Glucophage) 1,000 mg PO BIDDIAB [facility] Last Admin: 08/28/19 10:40 Dose: 1,000 mg Documented by: Metoprolol Tartrate (Lopressor) 50 mg PO BID [facility] Last Admin: 08/28/19 10:42 Dose: 50 mg Documented by: Miscellaneous Medication (Jardiance) 10 mg PO DAILY [facility] Ondansetron HCl (Zofran) 4 mg IV Q8H PRN PRN Reason: Nausea And Vomiting Sodium Chloride (Sodium Chloride Flush Syringe 10 Ml) 10 ml IV BID [facility] Last Admin: 08/28/19 10:42 Dose: 10 ml Documented by: Sodium Chloride (Sodium Chloride Flush Syringe 10 Ml) 10 ml IV PRN PRN PRN Reason: LINE FLUSH Physical Examination - Vital Signs Vital Signs: Vital Signs Temp Pulse Resp BP Pulse Ox 98.5 F 66 18 153/62 96 08/27/19 14:26 08/27/19 14:26 08/27/19 14:26 08/27/19 14:26 08/27/19 14:26 Results - Laboratory Findings CBC and BMP: 08/27/19 14:55 08/28/19 04:00 Abnormal Lab Findings: Abnormal Labs 08/27/19 08/27/19 08/27/19 14:41 14:54 14:55 RBC 5.22 H Hgb 14.7 H Hct 45.8 H RDW 18.2 H Seg Neutrophils % 73.0 H Seg Neutrophils # 7.9 H PT INR Potassium Glucose POC Glucose 122 H 144 H Hemoglobin A1c Albumin HDL Cholesterol TSH 08/27/19 08/27/19 08/27/19 14:55 14:55 21:30 RBC Hgb Hct RDW Seg Neutrophils % Seg Neutrophils # PT 15.3 H INR 1.24 H Potassium 5.7 H Glucose 127 H POC Glucose Hemoglobin A1c 8.1 H Albumin HDL Cholesterol TSH 08/28/19 08/28/19 08/28/19 04:00 08:13 09:42 RBC Hgb Hct RDW Seg Neutrophils % Seg Neutrophils # PT INR Potassium Glucose 150 H POC Glucose 124 H Hemoglobin A1c Albumin 3.7 L HDL Cholesterol 30 L TSH 5.090 H Assessment and Plan 74 YR OLD FEMALE WITH HISTORY OF HYPERTENSION,DIABETES,AND A RECENT STROKE, 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 PATIENT CAME BACK AGAIN WITH COMPLAINS OF LEFT FACIAL DROOP AND AND SLURRED SPEECH IN LESS THAN TWO WEEKS AFTER DISCHARGE. SHE WAS NOT A TPA CANDIDATE SHE WAS OUT OF WINDOW PERIOD. HER LAB SHOWS HER LDL AND HDL AND TRIGLYCERIDE ARE WELL UNDER CONTROL ON STATIN, TSH CONTINUES TO BE ELEVATED WHILE ON LEVOTHYROXINE. WHETHER SHE WAS COMPLIANT ON APIXABAN IS NOT CLEAR. CT SCAN UPON ADMISSION DID NOT SHOW ANY ACUTE INFARCT OR HEMORRHAGE. MRI IS PENDING. PHYSICAL EXAMINATION. ALERT AND AWAKE. VERY UNCOOPERATIVE WITH EXAMINATION.ANSWERS QUESTIONS AT TIMES,FOLLOWS COMMAND AT TIMES. MAKES EYE CONTACT. SPEECH- NO APHASIA,HAS DYSARTHRIA, HEART- NORMAL RATE AND RYTHM, CRANIAL NERVES- LEFT FACIAL DROOP, OTHERWISE CRANIAL NERVES ARE WITH IN NORMAL LIMIT. MOTOR- MILD WEAKNESS OF LEFT UPPER EXTREMITY COMPARED TO THE RIGHT. NO ASYMMETRY OF STRENGTH BETWEEN LOWER EXTREMITIES. REFLEXES- SLIGHTLY INCREASED ON THE LEFT UPPER EXTREMITY WITH BILATERAL DOWN GOING TOES. COORDINATION-FINGER TO NOSE WITH IN NORMAL LIMIT ON BOTH SIDES. SENSORY- GROSSLY WITH IN NORMAL LIMIT. IMPRESSION. PROBABLY RECURRENT ACUTE ISCAHEMIC STROKE RECOMMENDATION-. 1. PLEASE CONTINUE ASPIRIN 81 MG PO QD IN ADDITION TO APIXABAN 5MG BID. 2. WILL NEED ADJUSTMENT OF LEVOTHYROXINE HER TSH CONTINUES TO BE HIGH ON CURRENT DOSE OF LEVOTHYROXINE 3. AWAIT MRI RESULT, OTHER WORK UP IS NOT NEEDED SHE HAD ALL THE WORK UP DONE IN TWO WEEKS.
[2019-08-29] MEDS: LEVOTHYROXINE 50 MCG TAB PO SCH (06:49)
[2019-08-29] MEDS: INSULIN LISPRO 100 UNIT/ML SUB-Q SCH ×4 (08:00→22:03)
--- NOTE | 2019-08-29 11:50 | Magnetic Resonance Report ---
MRI BRAIN WITHOUT CONTRAST INDICATION / CLINICAL INFORMATION: stroke. Left side facial drooping, slurred speech TECHNIQUE: Multisequence, multiplanar images were obtained. COMPARISON: MR brain dated 08/11/2019. CT head dated 08/27/2019. FINDINGS: CEREBRAL HEMISPHERES: The areas of diffusion restriction in the right basal ganglia, subependymal reg ions of the right lateral ventricle and small foci in the posterior right temporal lobe have resolved since 08/11/2019. Evolving late subacute infarcts in these areas are noted. There are new areas of diffusion restriction on today's MRI. The largest area of diffusion restrictio n measures up to 2.4 x 1.8 cm in axial plane in the posterior right frontal lobe. Tiny cortical foci of diffusion restriction are also identified in the posterior right frontal lobe and superior right t emporal lobe. No midline shift. No acute hemorrhage. No extra-axial fluid collection. Mild volume lo ss and chronic white matter changes are stable. There is a prominent CSF signal intensity space anter ior to left frontal lobe measuring 1.9 x 1.3 cm in axial plane which appears to represent an incident al arachnoid cyst. CEREBELLAR HEMISPHERES: The posterior fossa and contents are unremarkable and unchanged. 5 mm chronic focal infarct in the left cerebellar hemisphere is noted. VENTRICLES: Normal in size and configuration for age. VISUALIZED ORBITS: No significant abnormality. VISUALIZED PARANASAL SINUSES: No significant abnormality. ADDITIONAL FINDINGS: None. IMPRESSION: New areas of acute to subacute ischemia in the right posterior frontal lobe and superior right tempor al lobe as described above. No evidence for hemorrhage or mass effect. Subacute infarcts noted on the previous MRI are evolving. Volume loss and chronic white matter changes. Incidental arachnoid cyst in the left frontal region. Signer Name: Mani Denson Jr, MD Signed: 08/29/2019 11:46 AM Workstation Name: [id number]
[2019-08-29] MEDS: metFORMIN 500 MG TAB PO SCH ×2 (13:36→17:22)
[2019-08-29] MEDS: LOSARTAN 50 MG TAB PO SCH (13:38)
[2019-08-29] MEDS: APIXABAN 5 MG TAB PO SCH ×2 (13:41→22:03)
[2019-08-29] MEDS: METOPROLOL TARTRATE 50 MG TAB PO SCH ×2 (13:42→22:04)
[2019-08-29] MEDS: DOCUSATE SODIUM 100 MG CAP PO SCH ×2 (13:42→22:03)
[2019-08-29] MEDS: ASPIRIN 81 MG TAB CHEW PO SCH (13:42)
--- NOTE | 2019-08-29 14:40 | Fluoroscopy Report ---
MODIFIED BARIUM SWALLOW INDICATION: for evaluation of dysphagia TECHNIQUE: Swallowing was evaluated in the lateral position under direct fluoroscopy. FINDINGS: The patient was evaluated with thin liquids, puree and semisolids.. Vallecular stasis was witnessed with all consistencies. No evidence for penetration or aspiration. IMPRESSION: Vallecular stasis. No aspiration. Fluoroscopic time: 2.3 minutes Number of fluoroscopic images: 1 Signer Name: Mani Denson Jr, MD Signed: 08/29/2019 2:35 PM Workstation Name: [id number]
--- NOTE | 2019-08-29 15:26 | Progress Note ---
Assessment and Plan / Acute CVA (cerebrovascular accident) NEW INFARCT IN THE RT. HEMISPHERE WHILE ON APIXABAN We will consult cardiology for further recommendation on anticoagulation MRI brain showed New areas of acute to subacute ischemia in the right posterior frontal lobe and superior right temporal lobe New areas of acute to subacute ischemia in the right posterior frontal lobe and superior right temporal lobe We'll follow PT OT eval, consulted speech therapist / IDDM (insulin dependent diabetes mellitus) Continue sliding-scale insulin coverage. Has been well controlled at this point. / HLD (hyperlipidemia) Continue aggressive statin therapy goal LDL less than 70. / Hypothyroidism (acquired) Continue Synthroid at current dose / HTN (hypertension): Present patient has fair control with losartan and metoprolol / Atrial fibrillation with RVR Continue anticoagulation with Eliquis for now. We'll follow cardiology recommendation for further anticoagulation Brief History Patient is a 4-year-old female with a history of CVA on 08/09/2019 with right basal ganglia infarct, atrial fibrillation on eliquis presented with slurred speech and left facial droop. At presentation patient's speech is still slurred and left-sided weakness. Patient was admitted for further evaluation and management with stroke protocol. MRI brain: New areas of acute to subacute ischemia in the right posterior frontal lobe and superior right temporal lobe . No evidence for hemorrhage or mass effect. Subacute infarcts noted on the previous MRI are evolving. Volume loss and chronic white matter changes. Incidental arachnoid cyst in the left frontal region. Hospitalist Physical General appearance: Present: no acute distress, well-nourished - EENT Eyes: Present: PERRL, EOM intact ENT: hearing intact, clear oral mucosa, dentition normal - Neck Neck: Present: supple, normal ROM. Absent: enlarged thyroid, masses or JVD, cervical LAD - Respiratory Respiratory effort: normal Respiratory: bilateral: CTA - Cardiovascular Rhythm: regularly irregular - Extremities Extremities: no ischemia, pulses intact, pulses symmetrical, No edema, normal temperature, normal color Peripheral Pulses: within normal limits - Abdominal General gastrointestinal: soft, non-tender, non-distended, normal bowel sounds, no hepatomegaly, no splenomegaly - Integumentary Integumentary: Present: clear, warm, dry - Psychiatric Psychiatric: intact judgment & insight - Neurologic Neurologic: focal deficits, other (judgment appears to be intact has slurred speech and some left-sided weakness.) Subjective Date of service: 08/29/19 Interval history: Patient seen and examined. Medical records and medication list reviewed. No acute event overnight noted by the RN. Patient denies any chest pain or difficulty breathing. Complaint of left-sided weakness and difficulty in speech Discussed plan of care at bedside with patient and her at bedside . Objective - Constitutional Vitals: Vital Signs - 12hr 08/29/19 08/29/19 08/29/19 04:19 07:30 09:53 Temperature 97.8 F 98.0 F Pulse Rate 93 H Respiratory 20 19 Rate Blood Pressure 124/56 117/57 O2 Sat by Pulse 100 97 Oximetry 08/29/19 08/29/19 13:38 13:42 Temperature Pulse Rate 118 H 118 H Respiratory Rate Blood Pressure O2 Sat by Pulse Oximetry - Labs CBC & Chem 7: 08/27/19 14:55 08/28/19 04:00 Labs: Abnormal lab results 08/28/19 08/28/19 08/29/19 Range/Units 17:53 22:12 07:36 POC Glucose 120 H 118 H 134 H (70-105) 08/29/19 Range/Units 11:54 POC Glucose 145 H (70-105)
--- NOTE | 2019-08-29 16:21 | Consultation ---
History of Present Illness Consult date: 08/29/19 Requesting physician: BARBRA TRINH Consult reason: atrial fibrillation, known to you, other (cva) History of present illness: The patient is a74 YO female with h/o paroxysmal atrial fibrillation (diagnosed 07/2019 after CVA), anticoagulated with Eliquis, CVA in 07/2019 s/p tPA, HTN, DM. She has been seen by our practice on prior hospitalization. She presented with c/o slurred speech, left sided weakness and left sided facial droop which began approx 8:30AM Neal AM. Patient was just discharged for an acute CVA on 08/09/2019. At that time patient had right basal ganglia infarct. Head CT with NAF, brain MRI shows new areas of acute and subacute ischemia in the right posterior frontal lobe and superior right temporal lobe. On evaluation, pt is still experiencing left-sided weakness, slurred speech and left-sided facial droop. She denies any recent chest pain, palpitations, n/v, diaphoresis, dizziness or syncope. She and her at bedside report 100% compliance with her home medication regimen, including Eliquis 5mg BID. Echo done 08/09/19 showed EF 55-60%, trace TR, trace MR, trivial pericardial effusion. Past History Past Medical History: atrial fib, diabetes, hypertension, stroke Medications and Allergies Allergies Allergy/AdvReac Type Severity Reaction Status Date / Time No Known Allergies Allergy Unverified 08/09/19 16:08 Home Medications Medication Instructions Recorded Confirmed Last Taken Type Levothyroxine 50 mcg PO DAILY 08/09/19 08/27/19 Unknown History Losartan 50 mg PO DAILY 08/09/19 08/27/19 Unknown History metFORMIN 1,000 mg PO BID 08/09/19 08/27/19 Unknown History Apixaban [Eliquis] 5 mg PO Q12HR #60 tablet 08/15/19 08/27/19 Unknown Rx Aspirin BABY CHEW TAB 81 mg PO DAILY #30 08/15/19 08/27/19 Unknown Rx AtorvaSTATin [Lipitor] 40 mg PO QHS #30 tablet 08/15/19 08/27/19 Unknown Rx Docusate Sodium [Colace CAP] 100 mg PO BID capsule 08/15/19 08/27/19 Unknown Rx HYDROcodone/APAP 5-325 [[place] 2 each PO Q6H PRN #8 tablet 08/15/19 08/27/19 Unknown Rx 5-325 mg TAB] Jardiance 10 mg PO DAILY #30 08/15/19 08/27/19 Unknown Rx Metoprolol [Lopressor TAB] 50 mg PO BID #60 tablet 08/15/19 08/27/19 Unknown Rx Insulin Regular, Human 42 units SUB-Q BID 08/27/19 08/27/19 Unknown History Active Meds: Active Medications Acetaminophen (Tylenol) 650 mg PO Q4H PRN PRN Reason: Pain MILD(1-3)/Fever >100.5/FLANAGAN Acetaminophen/Hydrocodone Bitart ([place] 5/325) 2 each PO Q6H PRN PRN Reason: Pain, Moderate (4-6) Apixaban (Eliquis) 5 mg PO Q12HR [facility]; Protocol Last Admin: 08/29/19 13:41 Dose: 5 mg Documented by: Aspirin (Baby Aspirin) 81 mg PO DAILY [facility] Last Admin: 08/29/19 13:42 Dose: 81 mg Documented by: Atorvastatin Calcium (Lipitor) 40 mg PO QHS [facility] Last Admin: 08/28/19 22:09 Dose: 40 mg Documented by: Docusate Sodium (Colace) 100 mg PO BID [facility] Last Admin: 08/29/19 13:42 Dose: 100 mg Documented by: Hydromorphone HCl (Dilaudid) 0.5 mg IV Q3H PRN PRN Reason: Pain , Severe (7-10) Sodium Chloride (Nacl 0.9% 1000 Ml) 1,000 mls @ 42 mls/hr IV DIRECT [facility] Last Admin: 08/28/19 13:17 Dose: 42 mls/hr Documented by: Insulin Human Lispro (Humalog) 0 unit SUB-Q ACHS [facility]; Protocol Last Admin: 08/29/19 12:00 Dose: Not Given Documented by: Levothyroxine Sodium (Synthroid) 50 mcg PO DAILY@0600 [facility] Last Admin: 08/29/19 06:49 Dose: 50 mcg Documented by: Losartan Potassium (Cozaar) 50 mg PO QDAY [facility] Last Admin: 08/29/19 13:38 Dose: 50 mg Documented by: Metformin HCl (Glucophage) 1,000 mg PO BIDDIAB [facility] Last Admin: 08/29/19 13:36 Dose: 1,000 mg Documented by: Metoprolol Tartrate (Lopressor) 50 mg PO BID [facility] Last Admin: 08/29/19 13:42 Dose: 50 mg Documented by: Miscellaneous Medication (Jardiance) 10 mg PO DAILY [facility] Ondansetron HCl (Zofran) 4 mg IV Q8H PRN PRN Reason: Nausea And Vomiting Sodium Chloride (Sodium Chloride Flush Syringe 10 Ml) 10 ml IV BID [facility] Last Admin: 08/29/19 13:54 Dose: 10 ml Documented by: Sodium Chloride (Sodium Chloride Flush Syringe 10 Ml) 10 ml IV PRN PRN PRN Reason: LINE FLUSH Review of Systems Constitutional: no weight loss, no weight gain, no fever, no chills, no sweats Ears, nose, mouth and throat: no ear pain, no nose pain, no sinus pressure, no sinus pain Cardiovascular: palpitations (occasional), no chest pain, no orthopnea, no edema, no syncope, no lightheadedness, no shortness of breath, no dyspnea on exertion, no high blood pressure, no leg edema Respiratory: no cough, no congestion, no wheezing, no pain on inspiration Gastrointestinal: no abdominal pain, no nausea, no vomiting, no diarrhea, no constipation, no change in bowel habits Genitourinary Female: no pelvic pain, no flank pain, no dysuria, no urinary freq uency, no urgency Integumentary: no rash, no pruritis, no redness, no sores, no wounds Neurological: weakness (left-sided), change in speech, other (left-sided facial droop), no head injury, no paralysis, no numbness, no tingling, no seizures, no syncope, no headaches Psychiatric: no anxiety Endocrine: no cold intolerance, no heat intolerance Hematologic/Lymphatic: no easy bruising, no easy bleeding Allergic/Immunologic: no urticaria, no wheezing Physical Examination Vital Signs Temp Pulse Resp BP Pulse Ox 98.5 F 66 18 153/62 96 08/27/19 14:08/27/19 14:26 08/27/19 14:08/27/19 14:08/27/19 14:26 General appearance: no acute distress HEENT: Positive: PERRL, Normocephaly, Mucus Membranes Moist Neck: Positive: neck supple, trachea midline Cardiac: Positive: irregularly irregular Lungs: Positive: Normal Exam, Decreased Breath Sounds Neuro: Positive: Weakness (left-sided), Other (left sided facial droop) Abdomen: Negative: Tender Skin: Negative: Rash Musculoskeletal: No Pain Extremities: Absent: edema Results 08/27/19 14:55 08/28/19 04:00 - Imaging and Cardiology Echo: report reviewed (08/09/19 showed EF 55-60%, trace TR, trace MR, trivial pericardial effusion.) EKG: report reviewed, image reviewed EKG interpretations - Telemetry EKG Rhythm: Atrial Fibrillation - EKG Supraventricular dysrhythmia: atrial fibrillation Assessment and Plan Recurrent acute ischemic CVA / ? failed Eliquis S/p CVA in 07/2019 s/p tPA. Pt and pt's at bedside report 100% compliance with home Eliquis 5mg BID. Cont ASA and statin. Neurology w/u in progress. Can consider conversion of Eliquis to Pradaxa. Will attempt to d/w neurology. Paroxysmal atrial fibrillation Anticoagulated with Eliquis. Cont home lopressor. HTN Stable. Cont lopressor and losartan. DM Hypothyroidism Synthroid per primary. The patient has been seen in conjunction with Dr. Garcia who agrees with the assessment and plan of care.
[2019-08-30] MEDS: LEVOTHYROXINE 50 MCG TAB PO SCH (06:09)
[2019-08-30] MEDS: INSULIN LISPRO 100 UNIT/ML SUB-Q SCH ×4 (08:24→22:53)
[2019-08-30] MEDS: metFORMIN 500 MG TAB PO SCH ×2 (10:00→17:35)
[2019-08-30] MEDS: ASPIRIN 81 MG TAB CHEW PO SCH (10:18)
[2019-08-30] MEDS: DOCUSATE SODIUM 100 MG CAP PO SCH ×2 (10:18→22:53)
[2019-08-30] MEDS: LOSARTAN 50 MG TAB PO SCH (10:18)
[2019-08-30] MEDS: METOPROLOL TARTRATE 50 MG TAB PO SCH ×2 (10:19→22:52)
--- NOTE | 2019-08-30 11:17 | Progress Note ---
Assessment and Plan 74 YR OLD FEMALE WITH NEW ONSET OF STROKE. PATIENT HAD RECURRENT STROKE WHILE ON APIXABAN, INDICATING IT IS NOT WORKING, MRI DONE DURING THIS PRESENT ADMISSION SHOWS RT FRONTAL INFARCT. PATIENT HAS IMPROVED IN HER STRENGTH SINCE ONSET OF STROKE. COMMUNICATES WELL, ANSWERS EVERY QUESTIONS APPROPRIATELY, PHYSICAL EXAMINATION- ALERT AND AWAKE,HAS INSIGHT INTO HER CONDITION, SPEECH- NO APHASIA, HAS MINIMA DYSARTHRIA CRANIAL NERVES- MILD RESIDUAL LEFT FACIAL WEAKNESS,OTHERWISE ALL CRANIAL NERVES ARE WITH IN NORMAL LIMIT. MOTOR- MILD WEAKNESS OF LEFT UPPER AND LOWER EXTREMITIES. REFLEXES- NO SIGNIFICANT INCREASE IN REFLEX ON THE LEFT SIDE, WITH UP GOING TOE ON THE LEFT. SENSORY- GROSSLY WITH IN NORMAL LIMIT. IMPRESSION- NEW INFARCT IN THE RT. HEMISPHERE WHILE ON APIXABAN, RECOMMEND. 1.AGREE WITH EMT PARAMEDIC'S IDEA OF STARTING HER ON PRADAXA, DOSE NEEDS TO BE ADJUSTED PER RENAL FUNCTION, 2. NO NEED TO CHECK INR LIKE OTHER ANTI COAGULANTS, CHECK PTT, PERIODICALLY. 3. CONTINUE STATIN PRECRIBED AND CONTINUE TO FOLLOW DIETARY RESTRICTION OF AVOIDING SATURATED FAT AND HIGH CHOLESTEROL CONTAINING FOOD. Objective - Vital Sign Vital Signs - 12hr 08/30/19 08/30/19 08/30/19 03:30 08:41 10:18 Temperature 98.7 F 98.1 F Pulse Rate 63 71 71 Respiratory 20 18 Rate Blood Pressure 120/58 144/57 144/57 O2 Sat by Pulse 99 96 Oximetry 08/30/19 10:19 Temperature Pulse Rate 71 Respiratory Rate Blood Pressure 144/57 O2 Sat by Pulse Oximetry - Laboratory Findings CBC and BMP: 08/27/19 14:55 08/28/19 04:00 Abnormal Lab Findings: Abnormal Labs 08/27/19 08/27/19 08/27/19 14:41 14:54 14:55 RBC 5.22 H Hgb 14.7 H Hct 45.8 H RDW 18.2 H Seg Neutrophils % 73.0 H Seg Neutrophils # 7.9 H PT INR Potassium Glucose POC Glucose 122 H 144 H Hemoglobin A1c Albumin HDL Cholesterol TSH 08/27/19 08/27/19 08/27/19 14:55 14:55 21:30 RBC Hgb Hct RDW Seg Neutrophils % Seg Neutrophils # PT 15.3 H INR 1.24 H Potassium 5.7 H Glucose 127 H POC Glucose Hemoglobin A1c 8.1 H Albumin HDL Cholesterol TSH 08/28/19 08/28/19 08/28/19 04:00 08:13 09:42 RBC Hgb Hct RDW Seg Neutrophils % Seg Neutrophils # PT INR Potassium Glucose 150 H POC Glucose 124 H Hemoglobin A1c Albumin 3.7 L HDL Cholesterol 30 L TSH 5.090 H 08/28/19 08/28/19 08/28/19 13:29 17:53 22:12 RBC Hgb Hct RDW Seg Neutrophils % Seg Neutrophils # PT INR Potassium Glucose POC Glucose 129 H 120 H 118 H Hemoglobin A1c Albumin HDL Cholesterol TSH 08/29/19 08/29/19 08/29/19 07:36 11:54 15:40 RBC Hgb Hct RDW Seg Neutrophils % Seg Neutrophils # PT INR Potassium Glucose POC Glucose 134 H 145 H 161 H Hemoglobin A1c Albumin HDL Cholesterol TSH 08/29/19 08/30/19 20:31 08:28 RBC Hgb Hct RDW Seg Neutrophils % Seg Neutrophils # PT INR Potassium Glucose POC Glucose 119 H 135 H Hemoglobin A1c Albumin HDL Cholesterol TSH
--- NOTE | 2019-08-30 11:30 | Progress Note ---
Assessment and Plan Recurrent acute ischemic CVA / ? failed Eliquis S/p CVA in 07/2019 s/p tPA. Pt and pt's at bedside report 100% compliance with home Eliquis 5mg BID. Cont ASA and statin. Neurology w/u in progress. Per neurology, agree with converting Eliquis to Pradaxa. Pradaxa has been initiated per primary. D/w Dr. Rowell. Paroxysmal atrial fibrillation Convert Eliquis to Pradaxa. Cont home lopressor. HTN Stable. Cont lopressor and losartan. DM Hypothyroidism Synthroid per primary. Currently stable cardiac status. Eliquis has been converted to Pradaxa. Nothing further to add from cardiac perspective at this time. Will see on as needed basis. Recommend pt follow up in our office with Dr. MERY Rosario within 1-2 weeks of discharge ([phone]). The patient has been seen in conjunction with Dr. Garcia who agrees with the assessment and plan of care. Subjective Date of service: 08/30/19 Principal diagnosis: CVA; AFib Interval history: pt resting comfortably in bed, states she is feeling better today. in SR on tele. Objective Last Vital Signs Temp 98.1 F 08/30/19 08:41 Pulse 71 08/30/19 10:19 Resp 18 08/30/19 08:41 BP 144/57 08/30/19 10:19 Pulse Ox 96 08/30/19 08:41 - Physical Examination General: No Apparent Distress HEENT: Positive: PERRL, Normocephaly, Mucus Membranes Moist Neck: Positive: neck supple, trachea midline Cardiac: Positive: Reg Rate and Rhythm, S1/S2 Lungs: Positive: Decreased Breath Sounds Neuro: Positive: Weakness (left-sided), Other (left sided facial droop) Abdomen: Negative: Tender Skin: Negative: Rash Musculoskeletal: No Pain Extremities: Absent: edema - Imaging and Cardiology EKG: report reviewed, image reviewed Echo: report reviewed (08/09/19 showed EF 55-60%, trace TR, trace MR, trivial pericardial effusion.) - Telemetry EKG Rhythm: Sinus Rhythm
--- NOTE | 2019-08-30 16:26 | Progress Note ---
Assessment and Plan / Acute CVA (cerebrovascular accident) NEW INFARCT IN THE RT. HEMISPHERE WHILE ON APIXABAN - changed AC to pradaxa MRI brain showed New areas of acute to subacute ischemia in the right posterior frontal lobe and superior right temporal lobe New areas of acute to subacute ischemia in the right posterior frontal lobe and superior right temporal lobe PT OT recommended acute rehab, consulted speech therapist - tolerating cardiac diet / IDDM (insulin dependent diabetes mellitus) Continue sliding-scale insulin coverage. Has been well controlled at this point. / HLD (hyperlipidemia) Continue aggressive statin therapy goal LDL less than 70. / Hypothyroidism (acquired) Continue Synthroid at current dose / HTN (hypertension): Present patient has fair control with losartan and metoprolol / Atrial fibrillation with RVR Continue anticoagulation with Pradaxa, rate controlled /Dvt Px, on pradaxa Disposition: to acute rehab when available Brief History Patient is a 4-year-old female with a history of CVA on 08/09/2019 with right basal ganglia infarct, atrial fibrillation on eliquis presented with slurred speech and left facial droop. At presentation patient's speech is still slurred and left-sided weakness. Patient was admitted for further evaluation and management with stroke protocol. MRI brain: New areas of acute to subacute ischemia in the right posterior frontal lobe and superior right temporal lobe . No evidence for hemorrhage or mass effect. Subacute infarcts noted on the previous MRI are evolving. Volume loss and chronic white matter changes. Incidental arachnoid cyst in the left frontal region. Hospitalist Physical General appearance: Present: no acute distress, well-nourished - EENT Eyes: Present: PERRL, EOM intact ENT: hearing intact, clear oral mucosa, dentition normal - Neck Neck: Present: supple, normal ROM. Absent: enlarged thyroid, masses or JVD, cervical LAD - Respiratory Respiratory effort: normal Respiratory: bilateral: CTA - Cardiovascular Rhythm: regularly irregular - Extremities Extremities: no ischemia, pulses intact, pulses symmetrical, No edema, normal temperature, normal color Peripheral Pulses: within normal limits - Abdominal General gastrointestinal: soft, non-tender, non-distended, normal bowel sounds, no hepatomegaly, no splenomegaly - Integumentary Integumentary: Present: clear, warm, dry - Psychiatric Psychiatric: intact judgment & insight - Neurologic Neurologic: focal deficits, other (judgment appears to be intact has slurred speech and some left-sided weakness.) Subjective Date of service: 08/30/19 Principal diagnosis: CVA; AFib Interval history: Patient seen and examined. Medical records and medication list reviewed. No acute event overnight noted by the RN. Patient denies any chest pain or difficulty breathing. Complaint of left-sided weakness and difficulty in speech Discussed plan of care at bedside with patient and her at bedside . Objective - Constitutional Vitals: Vital Signs - 12hr 08/30/19 08/30/19 08/30/19 08:41 10:18 10:19 Temperature 98.1 F Pulse Rate 71 71 71 Respiratory 18 Rate Blood Pressure 144/57 144/57 144/57 O2 Sat by Pulse 96 Oximetry 08/30/19 12:36 Temperature 97.4 F L Pulse Rate 60 Respiratory 16 Rate Blood Pressure 144/50 O2 Sat by Pulse 99 Oximetry - Labs CBC & Chem 7: 08/27/19 14:55 08/28/19 04:00 Labs: Abnormal lab results 08/29/19 08/29/19 08/30/19 Range/Units 15:40 20:31 08:28 POC Glucose 161 H 119 H 135 H (70-105) 08/30/19 Range/Units 12:44 POC Glucose 127 H (70-105)
[2019-08-30] MEDS: DABIGATRAN 150 MG CAP PO SCH ×2 (17:34→22:53)
[2019-08-31] MEDS: LEVOTHYROXINE 50 MCG TAB PO SCH (06:17)
[2019-08-31] MEDS: INSULIN LISPRO 100 UNIT/ML SUB-Q SCH ×2 (08:00→12:00)
[2019-08-31] MEDS: metFORMIN 500 MG TAB PO SCH (08:35)
[2019-08-31] MEDS: DABIGATRAN 150 MG CAP PO SCH (10:34)
[2019-08-31] MEDS: DOCUSATE SODIUM 100 MG CAP PO SCH (10:34)
[2019-08-31] MEDS: ASPIRIN 81 MG TAB CHEW PO SCH (10:34)
[2019-08-31] MEDS: LOSARTAN 50 MG TAB PO SCH (10:35)
[2019-08-31] MEDS: METOPROLOL TARTRATE 50 MG TAB PO SCH (10:36)
--- NOTE | 2019-08-31 12:02 | Discharge Summary ---
Providers - Providers Date of Admission: 08/27/19 15:54 Date of discharge: 08/31/19 Attending physician: BARBRA TRINH 08/27/19 Consult to Case Management [CONS] Routine Services Needed at Discharge: Home Health Services Physical Therapy Notified:: cm notified Consult to Physician [CONS] Routine Comment: Consulting Provider: JOSE SCHMIDT Physician Instructions: Reason For Exam: TIA 08/27/19 15:08 Speech Therapy Evaluation and Treat [CONS] Stat Reason For Exam: drools 08/27/19 21:46 Occupational Therapy Evaluate and Treat [CONS] Routine Comment: Reason For Exam: Neuro deficits Physical Therapy Evaluation and Treat [CONS] Routine Comment: Reason For Exam: Neuro deficits 08/29/19 15:27 Consult to Physician [CONS] Routine Comment: Consulting Provider: KOLTON UGARTE Physician Instructions: Reason For Exam: atrial fib with recurrent CVA Primary care physician: CYN WATSON Hospitalization Condition: Stable Pertinent studies: Head CT Brain MRI Hospital course: Patient is a 4-year-old female with a history of CVA on 08/09/2019 with right basal ganglia infarct, atrial fibrillation on eliquis presented with slurred speech and left facial droop. At presentation patient's speech is still slurred and left-sided weakness. Patient was admitted for further evaluation and management with stroke protocol. MRI brain: New areas of acute to subacute ischemia in the right posterior frontal lobe and superior right temporal lobe . No evidence for hemorrhage or mass effect. Subacute infarcts noted on the previous MRI are evolving. Volume loss and chronic white matter changes. Incidental arachnoid cyst in the left frontal region. Discharge diagnosis and Mx: / Acute CVA (cerebrovascular accident) - NEW INFARCT IN THE RT. HEMISPHERE WHILE ON APIXABAN - changed AC to pradaxa - MRI brain showed New areas of acute to subacute ischemia in the right posterior frontal lobe and superior right temporal lobe New areas of acute to subacute ischemia in the right posterior frontal lobe and superior right temporal lobe - PT OT recommended HH, consulted speech therapist - tolerating cardiac diet - Patient was then discharge home with HH in stable condition / diabetes mellitus type 2 Placed on sliding-scale insulin coverage. Has been well controlled. A1c 8.1, off long acting insulin, will d/c with metformin only / HLD (hyperlipidemia) Continue aggressive statin therapy, goal LDL less than 70. / Hypothyroidism (acquired) Continue Synthroid at current dose / HTN (hypertension): Present patient has fair control with losartan and metoprolol / Atrial fibrillation with RVR Continue anticoagulation with Pradaxa, rate controlled /Dvt Px, on pradaxa Disposition: Home with Hospitalist Physical General appearance: Present: no acute distress, well-nourished - EENT Eyes: Present: PERRL, EOM intact ENT: hearing intact, clear oral mucosa, dentition normal - Neck Neck: Present: supple, normal ROM. Absent: enlarged thyroid, masses or JVD, cervical LAD - Respiratory Respiratory effort: normal Respiratory: bilateral: CTA - Cardiovascular Rhythm: regularly irregular - Extremities Extremities: no ischemia, pulses intact, pulses symmetrical, No edema, normal temperature, normal color Peripheral Pulses: within normal limits - Abdominal General gastrointestinal: soft, non-tender, non-distended, normal bowel sounds, no hepatomegaly, no splenomegaly - Integumentary Integumentary: Present: clear, warm, dry - Psychiatric Psychiatric: intact judgment & insight - Neurologic Neurologic: focal deficits, other (judgment appears to be intact has slurred speech and some left-sided weakness.) Disposition: [id number] HOME [facility] Time spent for discharge: 34 minutes Core Measure Documentation - Palliative Care Palliative Care/ Comfort Measures: Not Applicable - Core Measures Any of the following diagnoses?: none Exam - Constitutional Vitals: Temp Pulse Resp BP Pulse Ox 97.7 F 70 14 139/65 96 08/31/19 07:25 08/31/19 10:36 08/31/19 07:25 08/31/19 10:36 08/31/19 08:21 Plan Activity: advance as tolerated Diet: low fat, low salt Special Instructions: record daily BP diary Follow up with: CYN WATSON MD [Primary Care Provider] - 7 Days Prescriptions: AtorvaSTATin [Lipitor] 40 mg PO QHS #30 tablet Aspirin BABY CHEW TAB 81 mg PO DAILY #30 Levothyroxine 50 mcg PO DAILY #30 Metoprolol [Lopressor TAB] 50 mg PO BID #60 tablet Losartan 50 mg PO DAILY #30 metFORMIN 1,000 mg PO BID #60 Dabigatran [Pradaxa] 150 mg PO BID #60 capsule
[2019-08-31 12:58] VITALS: BP 108/42
== END 2019-08-31 16:23 | disposition home health service (06) | DRG 65 ==
LOC: ED 14:06 → 4A 15:54
PROVIDERS: ADMIT Internal Medicine; ATTEND Internal Medicine
DX: I63.9 Cerebral infarction, unspecified (principal); G81.94 Hemiplegia, unspecified affecting left nondominant side; E11.9 Type 2 diabetes mellitus without complications; I10 Essential (primary) hypertension; E03.9 Hypothyroidism, unspecified; R29.810 Facial weakness; R47.81 Slurred speech; I48.0 Paroxysmal atrial fibrillation; E78.2 Mixed hyperlipidemia; Z82.49 Family history of ischemic heart disease and other diseases of the circulatory system; Z79.01 Long term (current) use of anticoagulants; Z79.4 Long term (current) use of insulin; Z79.899 Other long term (current) drug therapy
CPT/HCPCS: 36415; 70450; 70551; 74230; 80048; 80053; 80061; 82962; 83036; 84439; 84443; 84484; 85025; 85610; 85670; 85730; 93005; 93010; 94760; 96374; G0378; A9270-GY; J1815; J7030